=== PATIENT | male | born 1945 | race Caucasian/White ===

== ENCOUNTER 2016-10-30 11:46 | Inpatient (IN) | payer MEDICARE, MEDICAID ==
[~2016-10-30] VITALS: Ht 170.2 cm; Wt 72.6 kg
[2016-10-30] MEDS ORDERED: IV NS 0.9% 1,000 ML BAG IV ONE ×2 (12:00→12:30)
[2016-10-30] MEDS ORDERED: IV SET PRIMARY 1 EA INFUS.SET MC ONE (12:05)
[2016-10-30] MEDS ORDERED: IV NS 0.9% 1,000 ML ONE (12:05)
[2016-10-30 12:11] LABS: BASOPHILS # (AUTO) 0.1 /CMM (0.0-0.2); BASOPHILS % (AUTO) 1.4 % (0.0-2.0); DIFF TOTAL % 100 %; HEMATOCRIT 45 % (39-51); LYMPHOCYTES # (AUTO) 0.3 /CMM (0.8-4.8); LYMPHOCYTES % (AUTO) 3.8 % (20.0-44.0); MEAN CORPUSCULAR HEMOGLOBIN 28 PG (26.0-33.0); MEAN CORPUSCULAR HGB CONC 34 g/dl (31.0-36.0); MEAN CORPUSCULAR VOLUME 82 fL (80-96); MONOCYTES # (AUTO) 0.5 /CMM (0.1-1.30); MONOCYTES % (AUTO) 6.2 % (2.0-12.0); NEUTROPHILS # (AUTO) 6.9 /CMM (1.8-8.9); NEUTROPHILS % (AUTO) 88.6 % (43.0-81.0); PLATELET COUNT (AUTO) 189 /CMM (150-450); RED BLOOD CELL COUNT(AUTO) 5.42 MIL/uL (4.5-6.0); WHITE BLOOD COUNT (AUTO) 7.8 K/uL (4.3-11.0)
[2016-10-30] MEDS ORDERED: IV NS 0.9% 500 ML IV ONE (12:15)
[2016-10-30] MEDS ORDERED: LEVOFLOXACIN 750 MG /D5W 150ML 150 ML IV ONE ×2 (12:15→12:30)
[2016-10-30] MEDS ORDERED: IV SET PRIMARY PUMP SET 1 EA INFUS.SET MC ONE ×3 (12:16→13:44)
[2016-10-30] MEDS ORDERED: ACETAMINOPHEN 650 MG/SUPP.RECT RC ONE ×2 (12:18→12:30)
[2016-10-30 12:25] LABS: INR 1.04 (0.87-1.13); PROTHROMBIN TIME 10.9 SECS (9.5-12.7)
[2016-10-30 12:27] LABS: ALBUMIN 3.5 g/dL (3.4-5.0); BILIRUBIN,DIRECT 0.1 mg/dL (0.0-0.2); BILIRUBIN,TOTAL 0.4 mg/dL (0.2-1.0); CALCIUM, SERUM 9.1 mg/dL (8.5-10.1); INDIRECT BILIRUBIN 0.3 mg/dL (0.0-1.1); POTASSIUM 4.2 mmol/L (3.5-5.1)
[2016-10-30 12:30] LABS: TROPONIN I 0.227 ng/mL (0.00-0.056)
[2016-10-30] MEDS ORDERED: VANCOMYCIN 1 GM in IV D5W 250 ML IV ONE (12:30)
[2016-10-30] MEDS ORDERED: PIPERACILLIN /TAZOBACTAM 3.375 G in IV D5W 50 ML IV ONE (12:30)
[2016-10-30 12:41] LABS: LACTIC ACID 1.3 mmol/L (0.4-2.0)
[2016-10-30] MEDS ORDERED: SECONDARY IV SET 1 EA INFUS.SET MC ONE ×2 (12:48→13:44)
[2016-10-30] MEDS ORDERED: IV NS 0.9% 250 ML IV ONE (13:44)
[2016-10-30 13:45] VITALS: BP 113/64
[2016-10-30] MEDS ORDERED: Z GUARD REMEDY 2 OZ OINT TP PRN (14:00)
[2016-10-30] MEDS ORDERED: ONDANSETRON HCL/PF 4 MG/2 ML VIAL IVP PRN (14:00)
[2016-10-30] MEDS ORDERED: HYDROCODONE/APAP 5/325MG 1 EACH TABLET PO PRN (14:00)
[2016-10-30] MEDS ORDERED: PIPERACILLIN /TAZOBACTAM 4.5 G in IV D5W 50 ML IV SCH (14:00)
[2016-10-30] MEDS ORDERED: ZOLPIDEM TARTRATE 5 MG TABLET PO PRN (14:00)
[2016-10-30] MEDS ORDERED: ACETAMINOPHEN 325 MG TABLET PO PRN (14:00)
[2016-10-30 14:33] LABS: KETONES,URINE 2+ (NEGATIVE); LEUKOCYTE ESTERASE ,URINE NEGATIVE (NEGATIVE)
[2016-10-30 14:38] LABS: ADD UA MICROSCOPIC YES
[2016-10-30 14:40] LABS: ADD URINE CULTURE NO
[2016-10-30 14:41] LABS: MUCUS,URINE Moderate /LPF (None Seen)
[2016-10-30] MEDS: PANTOPRAZOLE 40 MG VIAL IV SCH (15:55)
[2016-10-30] MEDS: IV NS 0.9% 1,000 ML IV PRN (15:57)
[2016-10-30] MEDS ORDERED: VANCOMYCIN 1 GM in IV D5W 250ml IV ONE (16:00)
[2016-10-30] MEDS: IPRATROPIUM NEB FS 0.5 MG/2.5 ML AMPUL.NEB NEB SCH ×3 (16:06→23:35)
[2016-10-30] MEDS: ALBUTEROL FS 2.5 MG/0.5 ML VIAL.NEB NEB SCH ×3 (16:06→23:35)
[2016-10-30] MEDS: ENOXAPARIN SODIUM 40 MG/0.4 ML DISP.SYRIN SQ SCH (17:39)
[2016-10-30 17:41] LABS: ABG HCO3 22.7 mmol/L; ABG PCO2 28.4 mmHg (35.0-45.0); ABG PH 7.521 (7.350-7.450); ABG PO2 69.6 mmHg (75.0-100.0); ABG TOTAL HEMOGLOBIN 13.5 G/dL (13.5-18.0); ALLEN TEST Pass; AaDO2 46.1 mmHg; O2Hb 93.2 % (94.0-97.0)
[2016-10-30] MEDS: PIPERACILLIN /TAZOBACTAM 3.375 G in IV D5W 50 ML IV SCH (17:57)
[2016-10-30] MEDS ORDERED: FEE PK DOSING 1 MIN EA MC ONE (19:04)
[2016-10-30 20:00] VITALS: BP 117/76
[2016-10-31] VITALS: BP 116/73
[2016-10-31] MEDS: PIPERACILLIN /TAZOBACTAM 3.375 G in IV D5W 50 ML IV SCH ×4 (00:29→18:03)
[2016-10-31] MEDS ORDERED: ACETAMINOPHEN 650 MG/SUPP.RECT RC ONE (00:37)
[2016-10-31] MEDS: ACETAMINOPHEN 650 MG/SUPP.RECT RC PRN ×2 (00:42→20:46)
[2016-10-31] MEDS: ALBUTEROL FS 2.5 MG/0.5 ML VIAL.NEB NEB SCH ×6 (03:13→23:25)
[2016-10-31] MEDS: IPRATROPIUM NEB FS 0.5 MG/2.5 ML AMPUL.NEB NEB SCH ×6 (03:13→23:25)
[2016-10-31 04:00] VITALS: BP 119/80
[2016-10-31] MEDS: VANCOMYCIN 1 GM in IV D5W 250 ML IV SCH ×2 (04:50→16:54)
[2016-10-31] MEDS ORDERED: SECONDARY IV SET 1 EA INFUS.SET MC ONE ×2 (04:52→13:53)
[2016-10-31 08:00] VITALS: BP 112/67
[2016-10-31 08:26] LABS: ALBUMIN 3.1 g/dL (3.4-5.0); BILIRUBIN,TOTAL 0.4 mg/dL (0.2-1.0); CREATININE 1.1 mg/dL (0.6-1.3); PHOSPHORUS 3.2 mg/dL (2.5-4.9); POTASSIUM 3.7 mmol/L (3.5-5.1); TOTAL PROTEIN, SERUM 6.9 g/dL (6.4-8.2)
[2016-10-31] MEDS: PANTOPRAZOLE 40 MG VIAL IV SCH (08:34)
[2016-10-31 08:37] LABS: DIFF TOTAL % 100 %; HEMATOCRIT 42 % (39-51); HEMOGLOBIN 13.8 g/dL (13.5-17.5); LYMPHOCYTES # (AUTO) 0.4 /CMM (0.8-4.8); LYMPHOCYTES % (AUTO) 7.1 % (20.0-44.0); MEAN CORPUSCULAR HEMOGLOBIN 28 PG (26.0-33.0); MEAN CORPUSCULAR HGB CONC 33 g/dl (31.0-36.0); MEAN CORPUSCULAR VOLUME 84 fL (80-96); MONOCYTES # (AUTO) 0.6 /CMM (0.1-1.30); MONOCYTES % (AUTO) 9.5 % (2.0-12.0); NEUTROPHILS % (AUTO) 83.4 % (43.0-81.0); PLATELET COUNT (AUTO) 139 /CMM (150-450); WHITE BLOOD COUNT (AUTO) 6.1 K/uL (4.3-11.0)
[2016-10-31] MEDS ORDERED: BISA10SU8 RC (10:02)
[2016-10-31] MEDS ORDERED: NA P133E RC (10:02)
[2016-10-31] MEDS: IV NS 0.9% 1,000 ML IV PRN (10:02)
[2016-10-31] MEDS ORDERED: MAGN400O6 PO (10:02)
[2016-10-31] MEDS ORDERED: ACET-868 PO (10:02)
[2016-10-31] MEDS ORDERED: DONE5TAB34 PO (10:02)
[2016-10-31 12:00] VITALS: BP 108/69
[2016-10-31] MEDS: Magnesium 1GM/D5W 100ML PREMIX 100 ML IV SCH ×2 (14:16→15:47)
[2016-10-31 16:18] VITALS: BP 114/62
[2016-10-31] MEDS: LACTOBACILLUS RHAMNOSUS GG 1 EACH CAP.SPRINK PO SCH (16:23)
[2016-10-31 20:00] VITALS: BP 108/63
[2016-10-31] MEDS: ENOXAPARIN SODIUM 40 MG/0.4 ML DISP.SYRIN SQ SCH (20:59)
[2016-11-01] VITALS: BP 111/65
[2016-11-01] MEDS: PIPERACILLIN /TAZOBACTAM 3.375 G in IV D5W 50 ML IV SCH ×5 (00:01→23:43)
[2016-11-01] MEDS: IPRATROPIUM NEB FS 0.5 MG/2.5 ML AMPUL.NEB NEB SCH ×6 (03:35→23:19)
[2016-11-01] MEDS: ALBUTEROL FS 2.5 MG/0.5 ML VIAL.NEB NEB SCH ×6 (03:35→23:19)
[2016-11-01 05:34] LABS: POTASSIUM 3.6 mmol/L (3.5-5.1)
[2016-11-01] MEDS: VANCOMYCIN 1 GM in IV D5W 250 ML IV SCH (05:50)
[2016-11-01] MEDS ORDERED: IV NS 0.9% 1,000 ML ONE (05:57)
[2016-11-01] MEDS: IV NS 0.9% 1,000 ML IV PRN (06:02)
[2016-11-01] MEDS: PANTOPRAZOLE 40 MG VIAL IV SCH (08:24)
[2016-11-01] MEDS: LACTOBACILLUS RHAMNOSUS GG 1 EACH CAP.SPRINK PO SCH ×2 (08:25→17:29)
[2016-11-01 09:09] VITALS: BP 115/70
[2016-11-01 12:08] VITALS: BP 130/68
[2016-11-01 16:36] VITALS: BP 140/60
[2016-11-01] MEDS: VANCOMYCIN 1.25 GM in IV D5W 500 ML IV SCH (18:00)
[2016-11-01 20:00] VITALS: BP 102/51
[2016-11-01] MEDS: ENOXAPARIN SODIUM 40 MG/0.4 ML DISP.SYRIN SQ SCH (21:21)
[2016-11-02] MEDS: IV NS 0.9% 1,000 ML IV PRN (01:10)
[2016-11-02] MEDS: ALBUTEROL FS 2.5 MG/0.5 ML VIAL.NEB NEB SCH ×3 (03:34→10:58)
[2016-11-02] MEDS: IPRATROPIUM NEB FS 0.5 MG/2.5 ML AMPUL.NEB NEB SCH ×3 (03:34→10:58)
[2016-11-02] MEDS: VANCOMYCIN 1.25 GM in IV D5W 500 ML IV SCH (04:24)
[2016-11-02] MEDS: PIPERACILLIN /TAZOBACTAM 3.375 G in IV D5W 50 ML IV SCH ×2 (06:28→11:16)
[2016-11-02 08:00] VITALS: BP 119/73
[2016-11-02] MEDS: PANTOPRAZOLE 40 MG VIAL IV SCH (08:52)
[2016-11-02] MEDS: LACTOBACILLUS RHAMNOSUS GG 1 EACH CAP.SPRINK PO SCH (08:52)
[2016-11-02 09:49] LABS: CALCIUM, SERUM 8.2 mg/dL (8.5-10.1); CREATININE 1.1 mg/dL (0.6-1.3); POTASSIUM 3.2 mmol/L (3.5-5.1)
[2016-11-02] MEDS ORDERED: POTASSIUM CHLORIDE 20 MEQ TAB.PRT.SR PO ONE (12:00)
== END 2016-11-02 14:00 | DRG 871 ==
LOC: ER 11:48 → MED 13:18 → TELE 16:22 → MED 11-01 13:16
PROVIDERS: ADMIT Internal Medicine; ATTEND Internal Medicine
DX: A41.9 Sepsis, unspecified organism (principal); G93.41 Metabolic encephalopathy; J96.01 Acute respiratory failure with hypoxia; I21.4 Non-ST elevation (NSTEMI) myocardial infarction; J18.9 Pneumonia, unspecified organism; D68.59 Other primary thrombophilia; F03.90 Unspecified dementia, unspecified severity, without behavioral disturbance, psychotic disturbance, mood disturbance, and anxiety; Z74.01 Bed confinement status; R65.20 Severe sepsis without septic shock
CPT/HCPCS: 31720; 36415; 36600; 70450-TC; 71010-TC; 80048-TC; 80053-TC; 80061-TC; 80076-TC; 80202-TC; 81000-TC; 83605-TC; 83735-TC; 84100-TC; 84484-TC; 85025-TC; 85730-TC; 86850-TC; 86880-TC; 87040-TC; 87081-TC; 87086-TC; 92611-TC; 94799-TC; 97001-TC; A4606; C9113; J1650; J1956; J2543; J3370; J3475; J7030; J7040; J7050; J7060; Z7610

== ENCOUNTER 2016-11-07 11:52 | Inpatient (IN) | payer MEDICARE, MEDICAID ==
[~2016-11-07] VITALS: Ht 172.7 cm; Wt 69.9 kg
[~2016-11-07 11:52] MED LIST: ACET-868 PO; BISA10SU8 RC; DONE5TAB34 PO; MAGN400O6 PO; NA P133E RC
[2016-11-07] MEDS ORDERED: IV NS 0.9% 1,000 ML BAG IV ONE (12:00)
[2016-11-07] MEDS ORDERED: CEFEPIME 1 GM in IV D5W 50 ML IV ONE (12:00)
[2016-11-07] MEDS ORDERED: VANCOMYCIN 1 GM in IV D5W 250 ML IV ONE (12:00)
[2016-11-07 12:16] LABS: ABG BASE EXCESS 4.7 mmol/L; ABG PCO2 33.3 mmHg (35.0-45.0); ABG PH 7.527 (7.350-7.450); ABG PO2 70.4 mmHg (75.0-100.0); ALLEN TEST Pass; AaDO2 39.5 mmHg; O2Hb 93.6 % (94.0-97.0)
[2016-11-07] MEDS ORDERED: IV NS 0.9% 500 ML IV ONE (12:22)
[2016-11-07] MEDS ORDERED: IV NS 0.9% 2,000 ML ONE (12:22)
[2016-11-07] MEDS ORDERED: IV SET PRIMARY 1 EA INFUS.SET MC ONE (12:22)
[2016-11-07] MEDS ORDERED: IV SET PRIMARY PUMP SET 1 EA INFUS.SET MC ONE ×2 (12:23→16:20)
[2016-11-07 12:25] LABS: BASOPHILS # (AUTO) 0.3 /CMM (0.0-0.2); BASOPHILS % (AUTO) 3.6 % (0.0-2.0); DIFF TOTAL % 100 %; EOSINOPHILS # (AUTO) 0.1 /CMM (0.0-0.7); EOSINOPHILS % (AUTO) 0.8 % (0.0-6.0); HEMATOCRIT 43 % (39-51); HEMOGLOBIN 13.9 g/dL (13.5-17.5); LYMPHOCYTES # (AUTO) 1.8 /CMM (0.8-4.8); LYMPHOCYTES % (AUTO) 23.2 % (20.0-44.0); MEAN CORPUSCULAR HEMOGLOBIN 27 PG (26.0-33.0); MEAN CORPUSCULAR HGB CONC 33 g/dl (31.0-36.0); MEAN CORPUSCULAR VOLUME 82 fL (80-96); MONOCYTES # (AUTO) 0.7 /CMM (0.1-1.30); MONOCYTES % (AUTO) 9.6 % (2.0-12.0); NEUTROPHILS # (AUTO) 4.9 /CMM (1.8-8.9); NEUTROPHILS % (AUTO) 62.8 % (43.0-81.0); PLATELET COUNT (AUTO) 296 /CMM (150-450); RED BLOOD CELL COUNT(AUTO) 5.17 MIL/uL (4.5-6.0); WHITE BLOOD COUNT (AUTO) 7.8 K/uL (4.3-11.0)
[2016-11-07 12:36] LABS: CALCIUM, SERUM 9.9 mg/dL (8.5-10.1); POTASSIUM 4.5 mmol/L (3.5-5.1)
[2016-11-07 12:40] LABS: INR 1.04 (0.87-1.13); PROTHROMBIN TIME 10.9 SECS (9.5-12.7)
[2016-11-07 12:43] LABS: KETONES,URINE Negative (NEGATIVE); LEUKOCYTE ESTERASE ,URINE Negative (NEGATIVE)
[2016-11-07 12:45] LABS: BILIRUBIN,DIRECT 0.1 mg/dL (0.0-0.2); BILIRUBIN,TOTAL 0.5 mg/dL (0.2-1.0); INDIRECT BILIRUBIN 0.4 mg/dL (0.0-1.1); TOTAL PROTEIN, SERUM 8.3 g/dL (6.4-8.2)
[2016-11-07 12:46] LABS: ADD UA MICROSCOPIC YES
[2016-11-07 12:48] LABS: ADD URINE CULTURE NO; RBC,URINE 0-2 /HPF (0-2); WBC,URINE 0-2 /HPF (0-3)
[2016-11-07 12:51] LABS: TROPONIN I 0.035 ng/mL (0.00-0.056)
[2016-11-07] MEDS ORDERED: DONE10TA44 PO (12:53)
[2016-11-07 13:01] LABS: LACTIC ACID 1.1 mmol/L (0.4-2.0)
[2016-11-07] MEDS ORDERED: IPRA3AMP HHN ×2 (13:01)
[2016-11-07] MEDS ORDERED: CT SWABBABLE VALVE TRANS SET 1 EA INFUS.SET MC ONE (13:24)
[2016-11-07] MEDS ORDERED: IV NS 0.9% 250 ML IV ONE (13:24)
[2016-11-07] MEDS ORDERED: IOHEXOL-350 100 ML VIAL IV ONE (13:24)
[2016-11-07 16:00] VITALS: BP 95/63
[2016-11-07] MEDS ORDERED: ONDANSETRON HCL/PF 4 MG/2 ML VIAL IVP PRN (16:30)
[2016-11-07] MEDS ORDERED: ACETAMINOPHEN 650 MG/SUPP.RECT RC PRN (16:30)
[2016-11-07] MEDS ORDERED: FEE PK DOSING 1 MIN EA MC ONE (16:41)
[2016-11-07] MEDS ORDERED: ALBUTEROL FS 2.5 MG/0.5 ML VIAL.NEB NEB PRN (17:00)
[2016-11-07] MEDS ORDERED: IPRATROPIUM NEB FS 0.5 MG/2.5 ML AMPUL.NEB NEB PRN (17:00)
[2016-11-07] MEDS: IV D5/ 0.9% NACL 1,000 ML IV PRN (17:40)
[2016-11-07] MEDS ORDERED: SECONDARY IV SET 1 EA INFUS.SET MC ONE ×2 (17:48→23:52)
[2016-11-07] MEDS: PIPERACILLIN /TAZOBACTAM 4.5 G in IV D5W 50 ML IV SCH ×2 (17:53→23:39)
[2016-11-07] MEDS ORDERED: PIPERACILLIN /TAZOBACTAM 3.375 G in IV D5W 50 ML IV SCH (18:00)
[2016-11-07] MEDS: IPRATROPIUM NEB FS 0.5 MG/2.5 ML AMPUL.NEB NEB SCH (19:30)
[2016-11-07] MEDS: ALBUTEROL FS 2.5 MG/0.5 ML VIAL.NEB NEB SCH (19:30)
[2016-11-07 20:00] VITALS: BP 154/76
[2016-11-07] MEDS: ENOXAPARIN SODIUM 40 MG/0.4 ML DISP.SYRIN SQ SCH (21:28)
[2016-11-08] VITALS: BP 159/70
[2016-11-08] MEDS: VANCOMYCIN 1.25 GM in IV D5W 500 ML IV SCH ×2 (00:47→12:28)
[2016-11-08 04:00] VITALS: BP 160/78
[2016-11-08] MEDS: PIPERACILLIN /TAZOBACTAM 4.5 G in IV D5W 50 ML IV SCH ×4 (05:20→23:32)
[2016-11-08 06:19] LABS: BASOPHILS % (AUTO) 0.4 % (0.0-2.0); DIFF TOTAL % 100 %; EOSINOPHILS # (AUTO) 0.1 /CMM (0.0-0.7); EOSINOPHILS % (AUTO) 1.6 % (0.0-6.0); HEMATOCRIT 36 % (39-51); LYMPHOCYTES % (AUTO) 20.1 % (20.0-44.0); MEAN CORPUSCULAR HEMOGLOBIN 28 PG (26.0-33.0); MEAN CORPUSCULAR HGB CONC 34 g/dl (31.0-36.0); MEAN CORPUSCULAR VOLUME 82 fL (80-96); MONOCYTES # (AUTO) 0.5 /CMM (0.1-1.30); MONOCYTES % (AUTO) 10.6 % (2.0-12.0); NEUTROPHILS # (AUTO) 3.5 /CMM (1.8-8.9); NEUTROPHILS % (AUTO) 67.3 % (43.0-81.0); PLATELET COUNT (AUTO) 209 /CMM (150-450); RED BLOOD CELL COUNT(AUTO) 4.32 MIL/uL (4.5-6.0); WHITE BLOOD COUNT (AUTO) 5.2 K/uL (4.3-11.0)
[2016-11-08 06:33] LABS: CALCIUM, SERUM 8.1 mg/dL (8.5-10.1); CREATININE 0.9 mg/dL (0.6-1.3); PHOSPHORUS 2.7 mg/dL (2.5-4.9); POTASSIUM 3.5 mmol/L (3.5-5.1)
[2016-11-08] MEDS: IPRATROPIUM NEB FS 0.5 MG/2.5 ML AMPUL.NEB NEB SCH ×3 (07:32→19:54)
[2016-11-08] MEDS: ALBUTEROL FS 2.5 MG/0.5 ML VIAL.NEB NEB SCH ×3 (07:32→19:54)
[2016-11-08 08:00] VITALS: BP 139/67
[2016-11-08] MEDS: IV D5/ 0.9% NACL 1,000 ML IV PRN (09:09)
[2016-11-08] MEDS: PANTOPRAZOLE 40 MG VIAL IV SCH (09:09)
[2016-11-08 12:00] VITALS: BP 116/80
[2016-11-08 16:00] VITALS: BP 143/79
[2016-11-08 20:00] VITALS: BP 123/66
[2016-11-08] MEDS: ENOXAPARIN SODIUM 40 MG/0.4 ML DISP.SYRIN SQ SCH (21:33)
[2016-11-09] VITALS (9 sets, daily range): BP systolic 92–157; BP diastolic 62–88
[2016-11-09] MEDS: VANCOMYCIN 1.25 GM in IV D5W 500 ML IV SCH (01:25)
[2016-11-09] MEDS: IV D5/ 0.9% NACL 1,000 ML IV PRN (05:28)
[2016-11-09] MEDS: PIPERACILLIN /TAZOBACTAM 4.5 G in IV D5W 50 ML IV SCH ×3 (05:29→17:41)
[2016-11-09 07:17] LABS: CALCIUM, SERUM 8.2 mg/dL (8.5-10.1)
[2016-11-09] MEDS: ALBUTEROL FS 2.5 MG/0.5 ML VIAL.NEB NEB SCH ×3 (08:05→19:35)
[2016-11-09] MEDS: PANTOPRAZOLE 40 MG VIAL IV SCH (08:05)
[2016-11-09] MEDS: IPRATROPIUM NEB FS 0.5 MG/2.5 ML AMPUL.NEB NEB SCH ×3 (08:05→19:35)
[2016-11-09] MEDS ORDERED: SECONDARY IV SET 1 EA INFUS.SET MC ONE (11:44)
[2016-11-09] MEDS: POTASSIUM CL. PREMIX PERIPHER. 50 ML IV SCH ×6 (11:49→20:49)
[2016-11-09] MEDS ORDERED: BACITRACIN ZINC OINT (15 GM) 15 GM TUBE TP PRN (15:30)
[2016-11-09] MEDS ORDERED: HYDROGEN PEROXIDE 480 ML BOTTLE TP PRN (15:30)
[2016-11-09] MEDS: ENOXAPARIN SODIUM 40 MG/0.4 ML DISP.SYRIN SQ SCH (20:50)
[2016-11-09] MEDS ORDERED: FIBERSOURCE HN 1,000 ML BOTTLE GT PRN (21:00)
[2016-11-10] VITALS: BP 139/92
[2016-11-10] MEDS: PIPERACILLIN /TAZOBACTAM 4.5 G in IV D5W 50 ML IV SCH ×4 (00:33→17:07)
[2016-11-10] MEDS: VANCOMYCIN 0.75 GM in IV D5W 250 ML IV SCH ×2 (01:10→12:40)
[2016-11-10 04:00] VITALS: BP 115/65
[2016-11-10] MEDS: IV D5/ 0.9% NACL 1,000 ML IV PRN (05:51)
[2016-11-10 06:49] LABS: BASOPHILS % (AUTO) 0.3 % (0.0-2.0); DIFF TOTAL % 100 %; EOSINOPHILS # (AUTO) 0.1 /CMM (0.0-0.7); EOSINOPHILS % (AUTO) 1.5 % (0.0-6.0); HEMATOCRIT 36 % (39-51); LYMPHOCYTES % (AUTO) 20.1 % (20.0-44.0); MEAN CORPUSCULAR HEMOGLOBIN 27 PG (26.0-33.0); MEAN CORPUSCULAR HGB CONC 33 g/dl (31.0-36.0); MEAN CORPUSCULAR VOLUME 82 fL (80-96); MONOCYTES # (AUTO) 0.6 /CMM (0.1-1.30); NEUTROPHILS # (AUTO) 3.5 /CMM (1.8-8.9); NEUTROPHILS % (AUTO) 67.1 % (43.0-81.0); PLATELET COUNT (AUTO) 245 /CMM (150-450); RED BLOOD CELL COUNT(AUTO) 4.38 MIL/uL (4.5-6.0); WHITE BLOOD COUNT (AUTO) 5.2 K/uL (4.3-11.0)
[2016-11-10 07:00] LABS: CALCIUM, SERUM 8.1 mg/dL (8.5-10.1); POTASSIUM 3.4 mmol/L (3.5-5.1)
[2016-11-10] MEDS: ALBUTEROL FS 2.5 MG/0.5 ML VIAL.NEB NEB SCH ×2 (07:23→13:21)
[2016-11-10] MEDS: IPRATROPIUM NEB FS 0.5 MG/2.5 ML AMPUL.NEB NEB SCH ×2 (07:23→13:21)
[2016-11-10 08:00] VITALS: BP 127/67
[2016-11-10] MEDS: PANTOPRAZOLE 40 MG VIAL IV SCH (08:38)
[2016-11-10] MEDS ORDERED: POTASSIUM CHLORIDE 20 MEQ POWDER PACKET GT SCH (10:30)
[2016-11-10 12:00] VITALS: BP 122/84
[2016-11-10] MEDS ORDERED: Z GUARD REMEDY 4 OZ OINT TP PRN ×2 (12:30)
[2016-11-10 16:00] VITALS: BP 121/75
== END 2016-11-10 19:56 | DRG 871 ==
LOC: ER 11:55 → TELE1 15:10
PROVIDERS: ADMIT Legal Medicine; ATTEND Legal Medicine
PROC: 0DH63UZ Insertion of Feeding Device into Stomach, Percutaneous Approach (ICD-10-PCS; principal; 2016-11-09 13:18)
DX: A41.9 Sepsis, unspecified organism (principal); J69.0 Pneumonitis due to inhalation of food and vomit; J96.91 Respiratory failure, unspecified with hypoxia; G93.40 Encephalopathy, unspecified; J98.11 Atelectasis; I10 Essential (primary) hypertension; E78.5 Hyperlipidemia, unspecified; G30.9 Alzheimer's disease, unspecified; F02.80 Dementia in other diseases classified elsewhere, unspecified severity, without behavioral disturbance, psychotic disturbance, mood disturbance, and anxiety; F29 Unspecified psychosis not due to a substance or known physiological condition; F41.9 Anxiety disorder, unspecified; F32.9 Major depressive disorder, single episode, unspecified; M19.90 Unspecified osteoarthritis, unspecified site; R13.10 Dysphagia, unspecified; Z87.01 Personal history of pneumonia (recurrent)
CPT/HCPCS: 31720; 36415; 36600; 71010-TC; 80048-TC; 80076-TC; 80202-TC; 81000-TC; 83605-TC; 83735-TC; 84100-TC; 84484-TC; 85025-TC; 85730-TC; 87040-TC; 87081-TC; 87400; 92521; 92526; 92611-TC; 94799-TC; 97001-TC; A4606; A4623; A6403; C9113; J0692; J1650; J2543; J3370; J3480; J7030; J7040; J7042; J7050; J7060; Q9967; Z7610

== ENCOUNTER 2017-07-12 19:09 | Inpatient (IN) | payer MEDICARE, MEDICAID ==
[~2017-07-12] VITALS: Ht 165.1 cm; Wt 60.8 kg
[~2017-07-12 19:09] MED LIST changes: +DONE10TA44 PO; -DONE5TAB34 PO; +IPRA3AMP HHN
--- NOTE | 2017-07-12 19:09 | NUR ---
TO BED 5 A 71 YO MALE PATIENT BB RA86 FROM [facility]. PER EMS REPORT, SNF STAFF CALLED 911 FOR PT SpO2 78%, EMS REPORTS RT @SNF SUCTIONED COPIUS AMOUNTS OF SECRETIONS. UPON ARRIVAL TO ER, PATIENT IS AWAKE, NONVERBAL, RESPONSE TO TOUCH/LIGHT PAIN, DOES NOT FOLLOW COMMANDS. KEPT HOB ELEVATED. NOTED WITH O2 SATURATION OF 86% ON ROOM AIR, PLACED ON NONREBREATHER MASK AT 15LPM, SUCTIONED PRN FOR AIRWAY CLEARANCE, SATTING THIS TIME AT 96%. PLACED ON CARDIAC AND VS MONITORING. GOWNED. COMFORT AND SAFETY MEASURES IN PLACE. NOTED WITH TEMP PER RECTAL AT 101, NOTIFIED DR GREENFIELD AND SEPSIS PROTOCOL INITIATED.
--- NOTE | 2017-07-12 19:10 | NUR ---
STARTED A SALINE LOCK ON THE LEFT FOREARM G18, BLOOD DRAWN AND SENT TO LAB.
[2017-07-12 19:31] LABS: MONOCYTES # (AUTO) 0.7 /CMM (0.1-1.30)
--- NOTE | 2017-07-12 19:34 | NUR ---
DR GREENFIELD AT BEDSIDE TO EVAL.
[2017-07-12 19:40] LABS: BASOPHILS % (AUTO) 0.2 % (0.0-2.0); EOSINOPHILS # (AUTO) 0.1 /CMM (0.0-0.7); EOSINOPHILS % (AUTO) 0.4 % (0.0-6.0); HEMATOCRIT 39 % (39-51); HEMOGLOBIN 13.2 g/dL (13.5-17.5); LYMPHOCYTES # (AUTO) 0.9 /CMM (0.8-4.8); MEAN CORPUSCULAR HEMOGLOBIN 28 PG (26.0-33.0); MEAN CORPUSCULAR HGB CONC 34 g/dl (31.0-36.0); MEAN CORPUSCULAR VOLUME 83 fL (80-96); MONOCYTES % (AUTO) 5.4 % (2.0-12.0); NEUTROPHILS # (AUTO) 11.2 /CMM (1.8-8.9); PLATELET COUNT (AUTO) 270 /CMM (150-450); RDW COEFFICIENT OF VARIATION 12.4 (11.5-15.0); RED BLOOD CELL COUNT(AUTO) 4.71 MIL/uL (4.5-6.0); WHITE BLOOD COUNT (AUTO) 12.9 K/uL (4.3-11.0)
[2017-07-12 19:52] LABS: INR 1.09 (0.87-1.13); PROTHROMBIN TIME 11.4 SECS (9.5-12.7)
[2017-07-12 19:59] LABS: ALANINE AMINOTRANSFERASE 21 U/L (12-78); ALBUMIN 2.3 g/dL (3.4-5.0); ALKALINE PHOSPHATASE 85 U/L (46-116); ASPARTATE AMINOTRANSFERASE 36 U/L (15-37); BILIRUBIN,DIRECT 0.1 mg/dL (0.0-0.2); BILIRUBIN,TOTAL 0.4 mg/dL (0.2-1.0); CALCIUM, SERUM 8.6 mg/dL (8.5-10.1); CARBON DIOXIDE 29 mmol/L (21-32); CHLORIDE 102 mmol/L (98-107); CREATININE 0.7 mg/dL (0.6-1.3); GLUCOSE 113 mg/dL (74-106); POTASSIUM 3.6 mmol/L (3.5-5.1); SODIUM SERUM 137 mmol/L (136-145); TOTAL PROTEIN, SERUM 6.9 g/dL (6.4-8.2); UREA NITROGEN, BLOOD 18 mg/dL (7-18)
[2017-07-12 20:05] LABS: TROPONIN I 0.024 ng/mL (0.00-0.056)
[2017-07-12 20:07] LABS: APPEARANCE,URINE Clear (CLEAR); BILIRUBIN,URINE Negative (NEGATIVE); BLOOD, URINE Negative Ery/uL (NEGATIVE); COLOR,URINE Dark (YELLOW); KETONES,URINE Negative (NEGATIVE); LEUKOCYTE ESTERASE ,URINE Negative (NEGATIVE); NITRITE, URINE Negative (NEGATIVE); PROTEIN,URINE 30 mg/dl (NEGATIVE); UGLUCOSE Negative (NEGATIVE)
[2017-07-12] MEDS ORDERED: ERYT250C68 GT (20:10)
[2017-07-12] MEDS ORDERED: METO-295 GT (20:10)
[2017-07-12] MEDS ORDERED: RANI150T12 GT (20:10)
[2017-07-12] MEDS ORDERED: FERR-58 GT (20:10)
[2017-07-12] MEDS ORDERED: ACET-868 GT (20:10)
[2017-07-12] MEDS ORDERED: DOCU-25 GT (20:10)
--- NOTE | 2017-07-12 20:21 | NUR ---
EMERGENCY SPILL RESPONSE TECHNICIAN CALLED FOR MIN BED
[2017-07-12 20:25] LABS: BACTERIA,URINE Rare /HPF (None Seen); RBC,URINE NONE SEEN /HPF (0-2); SQUAMOUS EPITHELIAL CELL,UR Few /HPF (None Seen); WBC,URINE NONE SEEN /HPF (0-3)
--- NOTE | 2017-07-12 20:30 | NUR ---
started another iv saline lock on the rfa g18.
--- NOTE | 2017-07-12 20:32 | NUR ---
MIN 115-2
--- NOTE | 2017-07-12 20:40 | NUR ---
DR. VILLANUEVA CALLED AND SAID "PANEL IS COVERING ME TONIGHT"
--- NOTE | 2017-07-12 21:07 | NUR ---
report given to Marti FOURNIER for renata admission and uday.
--- NOTE | 2017-07-12 21:45 | NUR ---
RN OPENING NOTES" RECEIVED PATIENT FROM ER VIA ANTONINA, ON NON REBREATHER MASK AT 15LPM. PATIENT IS LETHARGIC, AROUSABLE THROUGH DEEP PAIN AT THIS TIME. VS STABLE DOCUMENTED. SKIN ASSESSMENT DONE. PHOTODOCUMENTATION FILED IN CHART. SKIN CARE RENDERED. HOOKED ON FLIGHT DATA TECHNICIAN. TELE REVEALS SINUS RHYTHM AT 80'S. IV ACCESS ON RFA G18 R WRIST G20 AND LFA G18, ALL PATENT AND INTACT. LEVAQUIN RUNNING AND IV BOLUS RUNNING FROM ER. GT INTACT PATENCY VERIFIED THROUGH AUSCULTATION. FC INTACT DRAINING TO A CLOSED SYSTEM. TO MONITOR OUTPUT. SAFETY MEASURES ENSURED. ASPIRATION PRECAUTIONS ENSURED. TO CARRY OUT ADMITTING ORDERS. CONTINUOUSLY MONITORED CLOSELY.
--- NOTE | 2017-07-12 21:46 | NUR ---
TRANSFERRED TO MIN FLOOR VIA ALS PROTOCOL, NO INCIDENT NOTED.
[2017-07-12 22:00] VITALS: BP 127/62
--- NOTE | 2017-07-12 23:00 | NUR ---
RN NOTES: STARTED PATIENT ON ANTIBIOTICS ORDERED. PATIENT AFEBRILE. TITRATED O2 DOWN TO O2 VIA NC AT 2LPM, TOLERATED WELL, SATURATING AT 96-97%. NOT IN APPARENT DISTRESS. CONFIRMED WITH DR BOWSER REGARDING GT FEEDING IF OK TO CONTINUE FEEDING FROM [facility]. DR BOWSER AGREES. ORDERS IN. MONITORED FOR TOLERANCE TO FEEDING. DIETARY CONSULT ORDERED WELL. ALSO ORDERED FOR CONTINUOUS IVF AT 75 CC/HR AFTER FLUID RESCUCITATION DONE. CONFIRMED WITH [facility] RE VACCINE HISTORY; FILED. SAFETY MEASURES ENSURED. CONTINUOUSLY MONITORED PATIENT.
[2017-07-13] VITALS (7 sets, daily range): BP systolic 120–168; BP diastolic 51–74
--- NOTE | 2017-07-13 07:00 | NUR ---
RN CLOSING NOTES: PATIENT REMAINED IN BED NOT IN APPARENT DISTRESS, ABLE TO TOLERATE O2 WELL. NOT IN APPARENT DISTRESS. REMAINED SR ON MONITOR. IVF CONTINUED ORDERED. SKIN CARE RENDERED. SAFETY MEASURES ENSURED. ASPIRATION PRECAUTIONS ENSURED. AMN LABS DRAWN RESULTS PENDING. CONTINUOUSLY MONITORED. ENDORSED.
[2017-07-13 07:45] LABS: BASOPHILS % (AUTO) 0.2 % (0.0-2.0); EOSINOPHILS # (AUTO) 0.2 /CMM (0.0-0.7); EOSINOPHILS % (AUTO) 2.2 % (0.0-6.0); HEMATOCRIT 33 % (39-51); LYMPHOCYTES # (AUTO) 1.1 /CMM (0.8-4.8); LYMPHOCYTES % (AUTO) 13.5 % (20.0-44.0); MEAN CORPUSCULAR HEMOGLOBIN 28 PG (26.0-33.0); MEAN CORPUSCULAR HGB CONC 34 g/dl (31.0-36.0); MEAN CORPUSCULAR VOLUME 83 fL (80-96); MONOCYTES # (AUTO) 0.5 /CMM (0.1-1.30); NEUTROPHILS # (AUTO) 6.1 /CMM (1.8-8.9); NEUTROPHILS % (AUTO) 77.1 % (43.0-81.0); PLATELET COUNT (AUTO) 208 /CMM (150-450); RDW COEFFICIENT OF VARIATION 13.5 (11.5-15.0); RED BLOOD CELL COUNT(AUTO) 3.91 MIL/uL (4.5-6.0); WHITE BLOOD COUNT (AUTO) 7.9 K/uL (4.3-11.0)
[2017-07-13 07:56] LABS: ALANINE AMINOTRANSFERASE 19 U/L (12-78); ALBUMIN 1.9 g/dL (3.4-5.0); ALKALINE PHOSPHATASE 65 U/L (46-116); ASPARTATE AMINOTRANSFERASE 36 U/L (15-37); BILIRUBIN,TOTAL 0.4 mg/dL (0.2-1.0); CALCIUM, SERUM 7.8 mg/dL (8.5-10.1); CARBON DIOXIDE 25 mmol/L (21-32); CHLORIDE 108 mmol/L (98-107); CREATININE 0.6 mg/dL (0.6-1.3); GLUCOSE 115 mg/dL (74-106); POTASSIUM 3.5 mmol/L (3.5-5.1); SODIUM SERUM 141 mmol/L (136-145); TOTAL PROTEIN, SERUM 6.1 g/dL (6.4-8.2); TROPONIN I 0.077 ng/mL (0.00-0.056); UREA NITROGEN, BLOOD 14 mg/dL (7-18)
--- NOTE | 2017-07-13 07:57 | NUR ---
RN MIN: pt.is with open eyes, short eyes contact, unable to follow commands, rest, non-verbal, no grimacing, O2 sat. 94-96% on 2L nc, GTF residual WNL, SR, SBP over 100, heels of off pressure
[2017-07-13 08:02] LABS: CREATINE KINASE MB 3.5 ng/mL (0-3.6)
[2017-07-13 08:14] LABS: INR 1.11 (0.87-1.13)
--- NOTE | 2017-07-13 09:09 | NUR ---
WOUND CARE CONSULT: PT PRESENTS WITH LEFT HIP NONBLANCHABLE REDNESS (STAGE 1) AND RT HEEL DEEP TISSUE INJURY (INTACT), BOTH PRESENT ON ADMISSION. PT IS INCONTINENT OF STOOL AND IMMOBILE. FIRST STEP MATTRESS ORDERED. ALL SKIN PROTECTION RECOMMENDATIONS DISCUSSED WITH NURSING STAFF. WILL SEE PRN. TIWARI IN AGREEMENT WITH PLAN OF CARE. Addendum: 07/13/17 at 0910 by GEORGE NELSON WNDNU Amended: Links added.
--- NOTE | 2017-07-13 10:20 | NUR ---
RN MIN: W/c consult is done, placed on KCI mattress
--- NOTE | 2017-07-13 12:31 | NUR ---
RN MIN: pt.family is in room, updated with pt.current condition, VS, GTF, IVF, skin problems, orders, POC
--- NOTE | 2017-07-13 13:35 | NUR ---
RN MIN: Johanna Acosta, PSYCHIATRY RESIDENT is in room, updated with pt.current condition, neuro status, VS, SBP 168 episode, I/O, GTF, IVF, pt.is on 2L O2 n/c now (in progress), but needs suctions d/t upper airway thick secretion, O2 sat. over 94%, family visit, see new orders
--- NOTE | 2017-07-13 18:25 | NUR ---
RT DID NOT DELIVER HHN TX'S. RT UNAWARE OF ORDER.
--- NOTE | 2017-07-13 20:00 | NUR ---
renata rn notes received pts on bed awake and responsive, on 2 liters of 02 via nc ,on tele sr on the monitor , no sob no distress noted , no facial grimaces noted. v/s stable afebrile, hob elevated for aspiration precaution ,on gt feeding Fiber[employer] 50cc/hr well tolerated no residual noted.with rfa g# 18 intact and patent, with ivf of ns at 75cc/hr infusing well, due meds given as ordered , call light within reach , all needs attended too, kept pts clean dry and comfortable,will continue to monitor pts.
[2017-07-14] VITALS (7 sets, daily range): BP systolic 122–160; BP diastolic 50–75
--- NOTE | 2017-07-14 06:56 | NUR ---
MIN RN NOTES PTS REMAINS ON VENTILATOR DEPENDENT AC SETTING WILL TOLERATED , GT FEEDING ON PROGRESS NO RESIDUAL NOTED , HOB ELEVATED FOR ASPIRATION PRECAUTION , SUCTION SECRETION DONE AND PRN .WILL ENDORSE TO RN DAY SHIFT FOR CONTINUITY OF CARE.
[2017-07-14 07:40] LABS: CALCIUM, SERUM 8.5 mg/dL (8.5-10.1); CARBON DIOXIDE 26 mmol/L (21-32); CHLORIDE 105 mmol/L (98-107); CREATININE 0.6 mg/dL (0.6-1.3); GLUCOSE 166 mg/dL (74-106); MAGNESIUM 1.9 mg/dL (1.8-2.4); PHOSPHORUS 2.3 mg/dL (2.5-4.9); SODIUM SERUM 139 mmol/L (136-145); UREA NITROGEN, BLOOD 14 mg/dL (7-18)
[2017-07-14 07:50] LABS: BASOPHILS % (AUTO) 0.2 % (0.0-2.0); HEMATOCRIT 35 % (39-51); HEMOGLOBIN 11.6 g/dL (13.5-17.5); LYMPHOCYTES # (AUTO) 0.7 /CMM (0.8-4.8); LYMPHOCYTES % (AUTO) 11.1 % (20.0-44.0); MEAN CORPUSCULAR HEMOGLOBIN 28 PG (26.0-33.0); MEAN CORPUSCULAR HGB CONC 33 g/dl (31.0-36.0); MEAN CORPUSCULAR VOLUME 83 fL (80-96); MONOCYTES # (AUTO) 0.2 /CMM (0.1-1.30); MONOCYTES % (AUTO) 3.3 % (2.0-12.0); NEUTROPHILS # (AUTO) 5.7 /CMM (1.8-8.9); NEUTROPHILS % (AUTO) 85.4 % (43.0-81.0); PLATELET COUNT (AUTO) 222 /CMM (150-450); RDW COEFFICIENT OF VARIATION 13.3 (11.5-15.0); RED BLOOD CELL COUNT(AUTO) 4.19 MIL/uL (4.5-6.0); WHITE BLOOD COUNT (AUTO) 6.7 K/uL (4.3-11.0)
--- NOTE | 2017-07-14 14:26 | NUR ---
RN NOTE ONE NEW VERBAL ORDER FROM Irvin LE/Keisha IVF
--- NOTE | 2017-07-14 19:11 | NUR ---
end of shift resting in bed. no acute complications or change of condition. provided oral suction and pulmonary toileting. call light in reach
--- NOTE | 2017-07-14 20:10 | NUR ---
RN INITIAL NOTES: PATIENT REMAINED IN BED NOT IN APPARENT DISTRESS, ABLE TO TOLERATE O2 WELL. NOT IN APPARENT DISTRESS. REMAINED SR ON MONITOR. IVF CONTINUED ORDERED. SKIN CARE RENDERED. SAFETY MEASURES ENSURED. ASPIRATION PRECAUTIONS ENSURED. AMN LABS DRAWN RESULTS PENDING. CONTINUOUSLY MONITORED. ENDORSED.
[2017-07-15] VITALS (7 sets, daily range): BP systolic 111–161; BP diastolic 55–93
--- NOTE | 2017-07-15 06:03 | NUR ---
CORPORATE QUALITY ASSURANCE MANAGER TD NOTES: ENDORSED PATIENT IN BED NOT IN APPARENT DISTRESS, ABLE TO TOLERATE O2 WELL. NOT IN APPARENT DISTRESS. REMAINED SR ON MONITOR. IVF CONTINUED ORDERED. SKIN CARE RENDERED. SAFETY MEASURES ENSURED. ASPIRATION PRECAUTIONS ENSURED. AMN LABS DRAWN RESULTS PENDING. CONTINUOUSLY MONITORED. ENDORSED.
[2017-07-15 07:04] LABS: CALCIUM, SERUM 8.2 mg/dL (8.5-10.1); CARBON DIOXIDE 29 mmol/L (21-32); CHLORIDE 106 mmol/L (98-107); CREATININE 0.6 mg/dL (0.6-1.3); GLUCOSE 150 mg/dL (74-106); PHOSPHORUS 2.3 mg/dL (2.5-4.9); POTASSIUM 3.9 mmol/L (3.5-5.1); SODIUM SERUM 140 mmol/L (136-145); UREA NITROGEN, BLOOD 15 mg/dL (7-18)
--- NOTE | 2017-07-15 08:00 | NUR ---
TD/RN AM SHIFT INITIAL NOTES RECEIVED PT AWAKE IN BED, NO ACUTE CHANGE OF CONDITION OR FEVER NOTED. PT IS NON-VERBAL, NO GRIMACING. VENTILATOR DEPENDENT RATES SET PRESCRIBED, SATURATING @ 98%, LUNG SOUNDS RHONCHI, SUCTIONED FOR AIRWAY CLEARANCE. ON TELE MONITORING WITH SINUS RHYTHM, HR 67. ON GOING IV SITES FLUSHED PATENT WITH NO S/S OF INFECTION, ON TKO. GT FEEDING ON GOING @ 50CC/HR, NO GASTRIC RESIDUAL NOTED, FLUSHED, PATENT. ADAM CATHETER INTACT NOTED WITH CLEAR YELLOW URINE OUTPUT. PT IS COMFORTABLE. SCHEDULED AM MEDS TO BE GIVEN. CL WITHIN REACHED AND SAFETY MAINTAINED. ON GOING MONITORING. Addendum: 07/15/17 at 0838 by BYRON NICHOLSON RN ERROR IN CHARTING: PT NOT VENTILATOR DEPENDENT, ON 3L O2 VIA N/C.
--- NOTE | 2017-07-15 12:00 | NUR ---
TD/RN NOON ROUNDS PT NOTED WITH CONGESTIVE LUNG SOUNDS, SUCTIONED ORALLY, SATURATING WELL, NO SOB. MONITORING CONTINUED.
--- NOTE | 2017-07-15 17:45 | NUR ---
TD/RN AFTERNOON ROUNDS PM CARE PROVIDED, NO ACUTE CHANGE OF CONDITION. SUCTIONED. MONITORING CONTINUED.
--- NOTE | 2017-07-15 19:21 | NUR ---
TD/RN AM SHIFT END NOTES NO ACUTE CHANGE OF CONDITION NOTED DURING THE SHIFT. ALL NEEDS MET. PT ENDORSED TO PM NURSE TO CONTINUE CARE. CL WITHIN REACHED AND SAFETY MAINTAINED.
--- NOTE | 2017-07-15 19:30 | NUR ---
MIN RN INITIAL NOTE PT RECEIVED IN BED RESTING. NON VERBAL. ON 3L OF O2 VIA NASAL CANNULA AND SATURATING @96%. PRODUCTIVE COUGH NOTED. UPON AUSCULTATION CRACKLES NOTED THROUGHOUT LUNG HIGGINS. BOWEL SOUNDS PRESENT IN ALL QUADRANTS. HEART SOUNDS AUSCULTATED. TELE- SINUS RHYTHM 80'S. IV SITES INTACT, CLEAN AND FLUSHING WELL. GTUBE CLEAN AND FLUSHING WELL WITHOUT NOTED RESIDUALS. ADAM CATHETER IN PLACE AND DRAINING YELLOW URINE WITH SEDIMENT NOTED. CALL LIGHT WITHIN REACH. WILL CONTINUE TO MONITOR.
[2017-07-16] VITALS: BP 139/85
[2017-07-16 04:00] VITALS: BP 121/48
--- NOTE | 2017-07-16 06:30 | NUR ---
MIN RN CLOSING NOTE PT REMAINED STABLE DURING SHIFT. PT SUCTIONED NEEDED AND WELL TOLERATED. REPOSITIONED Q2H. KEPT CLEAN AND DRY. ALL NEEDS ATTENDED TO PROMPTLY. NO SOB NOTED. NO C/O DISCOMFORT NOTED. ALL DUE MEDS GIVEN ORDERED AND WELL TOLERATED. WILL ENDORSE TO NEXT SHIFT FOR CONTINUITY OF CARE.
[2017-07-16 07:04] LABS: HEMATOCRIT 34 % (39-51); HEMOGLOBIN 11.2 g/dL (13.5-17.5); LYMPHOCYTES # (AUTO) 0.5 /CMM (0.8-4.8); LYMPHOCYTES % (AUTO) 5.9 % (20.0-44.0); MEAN CORPUSCULAR HEMOGLOBIN 28 PG (26.0-33.0); MEAN CORPUSCULAR HGB CONC 34 g/dl (31.0-36.0); MEAN CORPUSCULAR VOLUME 83 fL (80-96); MONOCYTES # (AUTO) 0.4 /CMM (0.1-1.30); NEUTROPHILS % (AUTO) 90.1 % (43.0-81.0); PLATELET COUNT (AUTO) 220 /CMM (150-450); RDW COEFFICIENT OF VARIATION 13.3 (11.5-15.0); RED BLOOD CELL COUNT(AUTO) 4.03 MIL/uL (4.5-6.0); WHITE BLOOD COUNT (AUTO) 8.8 K/uL (4.3-11.0)
[2017-07-16 07:29] LABS: CALCIUM, SERUM 8.1 mg/dL (8.5-10.1); CARBON DIOXIDE 29 mmol/L (21-32); CHLORIDE 104 mmol/L (98-107); CREATININE 0.6 mg/dL (0.6-1.3); GLUCOSE 173 mg/dL (74-106); MAGNESIUM 2.1 mg/dL (1.8-2.4); PHOSPHORUS 2.5 mg/dL (2.5-4.9); POTASSIUM 3.9 mmol/L (3.5-5.1); SODIUM SERUM 140 mmol/L (136-145); UREA NITROGEN, BLOOD 17 mg/dL (7-18)
--- NOTE | 2017-07-16 07:30 | NUR ---
MIN/RN: Pt received in bed, awake, responds to name, unable to follow commands, rhonchi noted throughout lungs. Suctioned thin white secretions orally. HOB elevated per aspiration precautions. Tolerating TF well, 10 cc residual noted. FC draining well to gravity. IV sites flushed and patent. On KCI mattress. Bilat heels offloaded. Alarm sounds audible. Will cont to monitor pt.
[2017-07-16 08:00] VITALS: BP 133/59
[2017-07-16 12:00] VITALS: BP 139/73
--- NOTE | 2017-07-16 12:00 | NUR ---
MIN/RN: Johanna Acosta, PHARMACIST IN CHARGE OWNER at bedside. Pt continues to have thick pharyngeal secretions requiring deep suctioning q4-6 hrs; pt unable to expectorate on his own. Rhonchi sounds present. Per PHARMACIST IN CHARGE OWNER, for discharge planning tomorrow, continue current respiratory treatments.
[2017-07-16] MEDS ORDERED: VANC750P5 IV (12:49)
[2017-07-16] MEDS ORDERED: ALBU2.5V13 NEB (12:49)
[2017-07-16] MEDS ORDERED: PIPE3.376 IV (12:49)
[2017-07-16] MEDS ORDERED: NUTR250L48 GT (12:49)
[2017-07-16] MEDS ORDERED: methylPREDNISolone SOD SUCC IV (12:49)
--- NOTE | 2017-07-16 15:00 | NUR ---
MIN/RN: Bed bath, wound care rendered. Pt tolerated well. Turned and repositioned for comfort.
[2017-07-16 16:00] VITALS: BP_SYST 127; BP_SYST 138; BP_DIAS 69; BP_DIAS 81
--- NOTE | 2017-07-16 19:02 | NUR ---
MIN/RN: Pt resting in bed comfortably, eyes closed, breathing even and unlabored, FC draining well to gravity. IV sites patent and flushed. Safety measures in place, will endorse care to PM rn for uday.
[2017-07-16 20:00] VITALS: BP_SYST 136; BP_SYST 137; BP_DIAS 66; BP_DIAS 83
[2017-07-17] VITALS (7 sets, daily range): BP systolic 137–152; BP diastolic 68–85
[2017-07-17 07:35] LABS: BASOPHILS % (AUTO) 0.1 % (0.0-2.0); HEMATOCRIT 35 % (39-51); HEMOGLOBIN 11.6 g/dL (13.5-17.5); LYMPHOCYTES # (AUTO) 0.5 /CMM (0.8-4.8); LYMPHOCYTES % (AUTO) 7.4 % (20.0-44.0); MEAN CORPUSCULAR HEMOGLOBIN 28 PG (26.0-33.0); MEAN CORPUSCULAR HGB CONC 34 g/dl (31.0-36.0); MEAN CORPUSCULAR VOLUME 83 fL (80-96); MONOCYTES # (AUTO) 0.3 /CMM (0.1-1.30); MONOCYTES % (AUTO) 4.8 % (2.0-12.0); NEUTROPHILS % (AUTO) 87.7 % (43.0-81.0); PLATELET COUNT (AUTO) 202 /CMM (150-450); RDW COEFFICIENT OF VARIATION 13.2 (11.5-15.0); RED BLOOD CELL COUNT(AUTO) 4.15 MIL/uL (4.5-6.0); WHITE BLOOD COUNT (AUTO) 6.9 K/uL (4.3-11.0)
--- NOTE | 2017-07-17 07:45 | NUR ---
MIN/RN - Initial Notes Received pt in bed, with eyes closed. Responds to verbal and tactile stimuli, unable to follow commands. Rhonchi noted throughout lungs. Suctioned thin/thick white secretions orally. HOB elevated per aspiration precautions. Tolerating TF well, no residual noted. Hernandez catheter draining urine to gravity. IV sites flushed and patent. On KCI mattress. Bilateral heels offloaded. Alarm sounds audible. Will continue to monitor pt.
[2017-07-17 07:58] LABS: CALCIUM, SERUM 8.1 mg/dL (8.5-10.1); CARBON DIOXIDE 29 mmol/L (21-32); CHLORIDE 105 mmol/L (98-107); CREATININE 0.7 mg/dL (0.6-1.3); GLUCOSE 175 mg/dL (74-106); MAGNESIUM 2.2 mg/dL (1.8-2.4); POTASSIUM 3.8 mmol/L (3.5-5.1); SODIUM SERUM 140 mmol/L (136-145); UREA NITROGEN, BLOOD 18 mg/dL (7-18)
--- NOTE | 2017-07-17 14:05 | NUR ---
MIN/RN - Notes Pt seen and evaluated by Pillo Bueno NP at bedside. HAZARDOUS WASTE MATERIAL TECHNICIAN made aware of CXR result taken on 07/14 - possible ileus or obstruction. Orders received to stop tube feeding for now and for stat KUB. Will carry out.
--- NOTE | 2017-07-17 14:39 | NUR ---
MS/RN - Notes Pt appears to be in pain, squirming and kicking extremities and facial grimacing, increase in BP 158/85 . Administered Morphine 2mg IVP as ordered for PRN pain. Comfort measures in place. Will continue to monitor.
--- NOTE | 2017-07-17 15:14 | NUR ---
MS/RN - Notes Pt appears to be more comfortable at this time. Squirming and kicking ceased. KUB results relayed to Pillo Bueno NP, with orders to restart tube feeding and administer x1 Lactulose via Gtube. Will carry out.
--- NOTE | 2017-07-17 17:31 | NUR ---
MS/RN - Notes Patient noted with large bowel movement.
--- NOTE | 2017-07-17 19:30 | NUR ---
RN Initial Notes Received patient in bed, noted with eyes closed. Responds to verbal and tactile stimuli, but unable to follow commands. Rhonchi noted throughout lungs. Suctioned thin white secretions orally. HOB elevated per aspiration precautions. Tolerating TF well, no residual noted. Hernandez catheter draining urine to gravity. IV sites flushed and patent. On KCI mattress. Bilateral heels offloaded. Alarm sounds audible. Will continue to monitor pt.
[2017-07-18 04:00] VITALS: BP 135/58
--- NOTE | 2017-07-18 06:33 | NUR ---
RN CLOSING NOTES PATIENT RESTING IN BED, APPEARS COMFORTABLE. NO ACUTE EVENTS OCCURRED THROUGHOUT SHIFT. WILL ENDORSE THE PATIENT TO THE AM SHIFT NURSE FOR STARR
[2017-07-18 07:02] LABS: CALCIUM, SERUM 8.1 mg/dL (8.5-10.1); CHLORIDE 103 mmol/L (98-107); CREATININE 0.6 mg/dL (0.6-1.3); GLUCOSE 134 mg/dL (74-106); SODIUM SERUM 137 mmol/L (136-145); UREA NITROGEN, BLOOD 16 mg/dL (7-18)
[2017-07-18 07:07] LABS: CARBON DIOXIDE 30 mmol/L (21-32)
--- NOTE | 2017-07-18 07:15 | NUR ---
MS RN NOTE: RECEIVED PT IN BED, NONVERBAL, EYES OPENED, RESPONDS TO TACTILE STIMULI. ON 3LPM O2 VIA NC, HOB ELEVATED PER ASPIRATION PRECAUTIONS AND SUCTION KIT AT BEDSIDE. RFA PATENT AND INTACT. ON FBS AT 60CC/HR. KCI MATTRESS AND DVT PUMPS NOTED. B/L HEELS OFFLOADED. F/C DRAINING TO GRAVITY WITH YELLOW URINE. BED LOW, LOCKED, X2 SIDERAILS UP WITH CALL LIGHT WITHIN REACH. WILL CONT TO MONITOR.
[2017-07-18 08:00] VITALS: BP 144/63
[2017-07-18 16:00] VITALS: BP 144/87
--- NOTE | 2017-07-18 18:00 | NUR ---
MS RN NOTE: [facility]. REPORT GIVEN TO FELTMAKER AND WEIGHER LUIS. VS: 97.7 TEMP, 78 HR, 16 RR, 95% O2 SAT, 144/87 BP. NO BELONGINGS NOTED. UNABLE TO SIGN D/C FORMS DUE TO CONDITION; COSIGNED WITH ANOTHER RN. ORDERS CARRIED OUT. D/C FORMS GIVEN TO EMT. PT LEFT VIA GURNEY WITH 2 EMT AT 1800.
== END 2017-07-18 18:03 | DRG 871 ==
LOC: ER 19:10 → TELE-TD 21:25 → MEDSG1 07-17 14:13
PROVIDERS: ADMIT Internal Medicine; ATTEND Internal Medicine
DX: A41.9 Sepsis, unspecified organism (principal); E43 Unspecified severe protein-calorie malnutrition; I21.4 Non-ST elevation (NSTEMI) myocardial infarction; J69.0 Pneumonitis due to inhalation of food and vomit; G93.41 Metabolic encephalopathy; R53.2 Functional quadriplegia; R13.10 Dysphagia, unspecified; D68.59 Other primary thrombophilia; J44.1 Chronic obstructive pulmonary disease with (acute) exacerbation; E78.5 Hyperlipidemia, unspecified; F41.9 Anxiety disorder, unspecified; M19.90 Unspecified osteoarthritis, unspecified site; F32.9 Major depressive disorder, single episode, unspecified; G30.9 Alzheimer's disease, unspecified; I10 Essential (primary) hypertension; Z87.01 Personal history of pneumonia (recurrent); F02.80 Dementia in other diseases classified elsewhere, unspecified severity, without behavioral disturbance, psychotic disturbance, mood disturbance, and anxiety; Z93.1 Gastrostomy status; E88.09 Other disorders of plasma-protein metabolism, not elsewhere classified; Z68.22 Body mass index [BMI] 22.0-22.9, adult
CPT/HCPCS: 31720; 36415; 71010-TC; 74000-TC; 80048-TC; 80053-TC; 80076-TC; 80202-TC; 81000-TC; 82553-TC; 83605-TC; 83735-TC; 83880; 84100-TC; 84484-TC; 85025-TC; 85385-TC; 85610-TC; 85730-TC; 87040-TC; 87070-TC; 87081-TC; 87086-TC; 93307-TC; 94762-TC; 94799-TC; A4606; A6402; A6403; A9563; J1956; J2270; J2543; J2930; J3370; J3490; J7030; J7050; J7060; J8597; Z7610

== ENCOUNTER 2018-03-22 19:08 | Inpatient (IN) | payer MEDICARE, MEDICAID ==
[~2018-03-22] VITALS: Ht 165.1 cm; Wt 54.4 kg
[~2018-03-22 19:08] MED LIST changes: +ACET-868 GT; -ACET-868 PO; +ALBU2.5V13 NEB; +DOCU-141 GT; -DONE10TA44 PO; +ERYT250C68 GT; +FERR325T23 GT; -IPRA3AMP HHN; +IPRA3AMP23 HHN; +MAGN400O6 GT; -MAGN400O6 PO; +METO-295 GT; +NUTR250L48 GT; +PIPE3.376 IV; +RANI150T43 GT; +VANC750P8 IV; +methylPREDNISolone SOD SUCC IV
--- NOTE | 2018-03-22 19:26 | NUR ---
PT BBRA C/O SHORTNESS OF BREATH SINCE YESTERDAY. PER FACILITY, PT SPO2 88% ON RA. PT HAS HX OF COPD AND USES NC 2L/M. GCS 10. RESP EVEN, TACHYPNIC, WITH MILD LABOR. MILD S/S OF ACUTE DISTRESS NOTED. BILATERAL CRACKLES AUSCULATED IN LUNG HIGGINS. PT PLACED ON SIMPLE MASK 4L/M PER MD'S ORDERS. SKIN HOT TO TOUCH AND DAMP. PT PLACED ON ASSEMBLER METAL BUILDING AND POX. PT SAFETY AND COMFORT MEASURES IN PLACE. MD BEDSIDE FOR EVAL. WILL CONTINUE TO MONITOR PT.
[2018-03-22] MEDS ORDERED: IPRATROPIUM NEB FS 0.5 MG/2.5 ML AMPUL.NEB NEB ONE (19:30)
[2018-03-22] MEDS ORDERED: ALBUTEROL FS 2.5 MG/3 ML VIAL.NEB CONTNEB ONE (19:30)
[2018-03-22] MEDS ORDERED: methylPREDNISolone SOD SUCC 125 MG/2ML VIAL IV ONE (19:30)
[2018-03-22] MEDS ORDERED: methylPREDNISolone SOD SUCC 125 MG/2ML VIAL ONE (19:31)
[2018-03-22 19:38] LABS: HEMOGLOBIN 13.5 g/dL (13.5-17.5); WHITE BLOOD COUNT (AUTO) 16.3 K/uL (4.3-11.0)
[2018-03-22 19:43] LABS: BASOPHILS # (AUTO) 0.4 /CMM (0.0-0.2); BASOPHILS % (AUTO) 2.3 % (0.0-2.0); CALCIUM, SERUM 9.1 mg/dL (8.5-10.1); CARBON DIOXIDE 35 mmol/L (21-32); CHLORIDE 99 mmol/L (98-107); CREATININE 0.7 mg/dL (0.6-1.3); EOSINOPHILS % (AUTO) 0.7 % (0.0-6.0); GLUCOSE 121 mg/dL (74-106); HEMATOCRIT 39 % (39-51); LYMPHOCYTES # (AUTO) 1.9 /CMM (0.8-4.8); LYMPHOCYTES % (AUTO) 11.6 % (20.0-44.0); MEAN CORPUSCULAR HGB CONC 34 g/dl (31.0-36.0); MEAN CORPUSCULAR VOLUME 80 fL (80-96); MONOCYTES # (AUTO) 0.6 /CMM (0.1-1.30); NEUTROPHILS # (AUTO) 13.2 /CMM (1.8-8.9); NEUTROPHILS % (AUTO) 81.4 % (43.0-81.0); PLATELET COUNT (AUTO) 338 /CMM (150-450); POTASSIUM 3.5 mmol/L (3.5-5.1); RED BLOOD CELL COUNT(AUTO) 4.93 MIL/uL (4.5-6.0); SODIUM SERUM 135 mmol/L (136-145); UREA NITROGEN, BLOOD 26 mg/dL (7-18)
[2018-03-22 19:51] LABS: TROPONIN I 0.027 ng/mL (0.00-0.056)
[2018-03-22] MEDS ORDERED: IPRATROPIUM NEB FS 0.5 MG/2.5 ML AMPUL.NEB ONE (19:59)
[2018-03-22] MEDS ORDERED: ALBUTEROL FS 2.5 MG/3 ML VIAL.NEB ONE (19:59)
[2018-03-22 20:00] LABS: ALANINE AMINOTRANSFERASE 47 U/L (12-78); ALBUMIN 2.4 g/dL (3.4-5.0); ALKALINE PHOSPHATASE 106 U/L (46-116); ASPARTATE AMINOTRANSFERASE 54 U/L (15-37); B-TYPE NATRIURETIC PEPTIDE 163 PG/ML (0-125); BILIRUBIN,DIRECT 0.1 mg/dL (0.0-0.2); BILIRUBIN,TOTAL 0.3 mg/dL (0.2-1.0)
--- NOTE | 2018-03-22 20:02 | NUR ---
RT BEDSIDE FOR BREATHING TREATMENT
[2018-03-22 20:08] LABS: BAND % (MANUAL) 2 % (0.0-5.0); BASOPHILS % (MANUAL) 0 % (0.0-2.0); EOSINOPHILS % (MANUAL) 0 % (0-4); LYMPHOCYTES % (MANUAL) 14 % (16-48); MONOCYTES % (MANUAL) 1 % (0-11.0); NEUTROPHILS % (MANUAL) 83 (42-76)
--- NOTE | 2018-03-22 20:36 | NUR ---
PT WAS NT SUCTIONED VIA THE RT NARE MODERATE AMOUNT OF THICK WHITE SECRETIONS REMOVED, PT TOLERATED PROCEDURE NO ADVERSE REACTION NOTED
[2018-03-22] MEDS ORDERED: PANT40TA2 GT (20:59)
[2018-03-22] MEDS ORDERED: GLYC1TAB5 GT (20:59)
[2018-03-22] MEDS ORDERED: SACC250C GT (20:59)
[2018-03-22] MEDS ORDERED: PIPERACILLIN /TAZOBACTAM 3.375 G in IV D5W 50 ML IV ONE (21:00)
[2018-03-22] MEDS ORDERED: LEVOFLOXACIN 750 MG /D5W 150ML 150 ML IV ONE ×2 (21:00)
[2018-03-22] MEDS ORDERED: PIPERACILLIN /TAZOBACTAM 3.375 G VIAL IV ONE (21:00)
--- NOTE | 2018-03-22 21:07 | NUR ---
CALLED NURSING SUP. FOR TELE BED
--- NOTE | 2018-03-22 21:30 | NUR ---
REPORT GIVEN TO ELI TIMMONS FOR STARR.
[2018-03-22 22:00] VITALS: BP 118/68
--- NOTE | 2018-03-22 22:00 | NUR ---
MICROBIOLOGICAL LAB TECHNICIAN OPENING NOTES: RECEIVED PT FROM RNMARIAM. PT IS APHASIC. PT OPENS EYES. PT IS A/OX1 TO NAME. PT ON 4LPM VIA SIMPLE MASK. PT HAS IV ON R FOREARM #18G AND IS BEING INFUSED WITH LEVAQUIN AT 100ML/HR. PT TO BE PLACED ON TELE BOX. PT ALSO HAS G TUBE. HAS BEEN FLUSHED. BED ALARM ACTIVATED. CALL LIGHT WITHIN PT'S REACH. BED KEPT IN LOW, LOCKED POSITION, AND SIDE RAILS X 2UP. WILL CONTINUE TO MONITOR PT.
--- NOTE | 2018-03-22 22:53 | NUR ---
PROFESSOR OF ENGINEERING NOTES: PAGED DR. VILLANUEVA'S OFFICE. AWAITING FOR CALL BACK.
--- NOTE | 2018-03-22 22:55 | NUR ---
FILLER BLOCK INSERTER REMOVER NOTES: SPOKE WITH DR. VILLANUEVA. HE WILL DO MED RECON TOMORROW IN THE MORNING. ALSO, RESUME FEEDING TOMORROW IN THE MORNING. OK TO GIVE TYLENOL VIA G TUBE INCASE OF FEVER. AND GOT CLARIFICATION FOR ZOSYN FOR Q6HRS.
[2018-03-22] MEDS: IV D5/ 0.9% NACL 1,000 ML IV SCH (23:07)
[2018-03-23] VITALS: BP 138/73
--- NOTE | 2018-03-23 01:30 | NUR ---
SUPERINTENDENT GREENS NOTES: DAAM CATH STILL HAS NO OUTPUT. BLADDER SCANNER SHOWS >200 ML URINE RETAINED. IRRIGATED WITH NORMAL SALINE. NO URINE CAME OUT. BLOOD CLOT REMOVED. BLOOD STARTED TO COME OUT WITH BLOOD CLOTS SHOWN. REMOVED ADAM. URINE STARTED TO COME OUT. CHARGE NURSE AWARE. WILL CONTINUE TO MONITOR. DIAPERED PT.
[2018-03-23 04:26] VITALS: BP 144/79
[2018-03-23] MEDS ORDERED: PIPERACILLIN /TAZOBACTAM 3.375 G VIAL IV ONE (05:20)
[2018-03-23] MEDS: PIPERACILLIN /TAZOBACTAM 3.375 G in IV D5W 50 ML IV SCH ×4 (05:25→23:57)
--- NOTE | 2018-03-23 05:25 | NUR ---
BUSINESS DEVELOPMENT CONSULTANT NOTES: ZOSYN WAS OVERRODE BY CHARGE NURSE. HAD TO MANUALLY ADMIN SINCE GUN WILL NOT SCAN MED.
--- NOTE | 2018-03-23 06:27 | NUR ---
CRANE OPERATOR NOTES: PAGED DR. VILLANUEVA. AWAITING FOR CALLBACK.
--- NOTE | 2018-03-23 06:32 | NUR ---
POISER CLOSING NOTES: ALL NEEDS WERE ATTENDED AND ANTICIPATED FOR. PT KEPT CLEAN, DRY, AND COMFORTABLE. PT ON SIMPLE MASK AND IS ON 6LPM VIA. PT CONNECTED TO PULSE OX. FREQUENT SUCTIONING PERFORMED PRN. SUCTION SET UP IN PLACE. PT HAS IV ON R FOREARM #18G AND IS BEING INFUSED WITH D5NS @75ML/HR. BED ALARM ACTIVATED. PT ON TELE BOX AND READING SHOWS SR. PT APHASIC BUT OPENS EYES. CALL LIGHT WITHIN PT'S REACH. BED KEPT IN LOW, LOCKED POSITION, AND SIDE RAILS X 2UP. WILL ENDORSE TO AM NURSE FOR STARR.
[2018-03-23 06:49] LABS: BASOPHILS % (AUTO) 0.1 % (0.0-2.0); HEMATOCRIT 40 % (39-51); LYMPHOCYTES # (AUTO) 0.5 /CMM (0.8-4.8); LYMPHOCYTES % (AUTO) 4.5 % (20.0-44.0); MEAN CORPUSCULAR HGB CONC 33 g/dl (31.0-36.0); MEAN CORPUSCULAR VOLUME 82 fL (80-96); MONOCYTES % (AUTO) 0.4 % (2.0-12.0); NEUTROPHILS # (AUTO) 10.1 /CMM (1.8-8.9); PLATELET COUNT (AUTO) 295 /CMM (150-450); RDW COEFFICIENT OF VARIATION 16.6 (11.5-15.0); RED BLOOD CELL COUNT(AUTO) 4.86 MIL/uL (4.5-6.0); WHITE BLOOD COUNT (AUTO) 10.6 K/uL (4.3-11.0)
[2018-03-23 07:08] LABS: CALCIUM, SERUM 9.2 mg/dL (8.5-10.1); CARBON DIOXIDE 33 mmol/L (21-32); CHLORIDE 99 mmol/L (98-107); CREATININE 0.7 mg/dL (0.6-1.3); GLUCOSE 134 mg/dL (74-106); POTASSIUM 4.1 mmol/L (3.5-5.1); SODIUM SERUM 139 mmol/L (136-145); UREA NITROGEN, BLOOD 25 mg/dL (7-18)
[2018-03-23] MEDS ORDERED: DOCU50LI GT (07:27)
[2018-03-23] MEDS ORDERED: PANT40SU2 GT (07:27)
[2018-03-23] MEDS ORDERED: LACT-96 GT (07:27)
[2018-03-23] MEDS ORDERED: CHLO473M5 MM (07:27)
--- NOTE | 2018-03-23 07:41 | NUR ---
EXPLOSIVE ORDNANCE HANDLER OPENING NOTE RECEIVED BEDSIDE SBAR REPORT ON THE PATIENT. PATIENT IS INTERMITTENTLY AWAKE, NON-VERBAL, RESPONSIVE TO TOUCH AND LIGHT PAIN. PATIENT IS BEDBOUND. BED IS LOCKED IN LOWEST POSITION, SIDE RAILS UP X3, BED ALARM IS ON. CHEST RISING EQUALLY/BILATERALLY. SPO2 99% ON 8L OXYGEN VIA FACE MASK. NO S/S OF PAIN/DISCOMFORT AT THIS TIME. VS WNL. ALL NEEDS ARE MET. EXTERNAL TELE MONITOR READING SR 89. CALL LIGHT WITHIN REACH. EDUCATED TO CALL FOR ASSISTANCE USING THE CALL LIGHT AND VERBALIZED UNDERSTANDING. WILL CONTINUE TO ASSESS/MONITOR THROUGHOUT THE SHIFT.
[2018-03-23] MEDS: ALBUTEROL HALF STRENGTH 1.25 MG/3 ML VIAL.NEB NEB PRN (07:56)
[2018-03-23 08:00] VITALS: BP 121/70
[2018-03-23] MEDS ORDERED: BISACODYL SUPP (10 MG) 10 MG/SUPP.RECT SUPP.RECT RC PRN (09:30)
[2018-03-23] MEDS ORDERED: FUROSEMIDE 20 MG/2 ML VIAL IV ONE (09:30)
[2018-03-23] MEDS ORDERED: MAGNESIUM HYDROXIDE 30 ML UDC GT PRN (09:30)
[2018-03-23] MEDS ORDERED: NA PHOS,M-B/NA PHOS,DI-BA 1 EA ENEMA RC PRN (09:30)
[2018-03-23] MEDS: PANTOPRAZOLE 40 MG VIAL IV SCH (09:45)
[2018-03-23] MEDS: methylPREDNISolone SOD SUCC 40 MG/ML VIAL IV SCH ×3 (09:46→17:52)
[2018-03-23] MEDS: GLYCOPYRROLATE 1 MG TABLET GT SCH ×3 (09:48→21:46)
[2018-03-23] MEDS: ENOXAPARIN SODIUM 40 MG/0.4 ML DISP.SYRIN SQ SCH (09:50)
[2018-03-23] MEDS: SCOPOLAMINE HBR 1 EA PATCH.TD72 TD SCH (09:56)
--- NOTE | 2018-03-23 11:15 | NUR ---
WHILE CHANGING THE PATIENT'S DIAPER SMALL SPOT OF BRIGHT PINK BLOOD WAS NOTICES ON A DIAPER AT PENILE AREA. NO EVIDENCE OF HEMATURIA. YELLOW URINE OBSERVED ON THE DIAPER. PENIS IS ASSESSED. OBSERVABLE SMALL BLODY SPOT NOTED AT THE TIP OF THE PENIS IN URETHRAL OPENING PROBABLY S/T URETHRAL IRRITATION CAUSED BY CATHETERIZATION LAST NIGHT. WILL CONTINUE TO ASSESS/MONITOR THROUGHOUT THE SHIFT. CHARGE NURSE HALLEY BERMUDEZ. WILL INFORM .
--- NOTE | 2018-03-23 11:30 | NUR ---
DR VILLANUEVA AT THE BEDSIDE. ALL ASSESSMENT FINDING REVELED WITH THE DOCTOR AT THE [facility]. NO NEW ORDERS RECEIVED AT THIS TIME.
[2018-03-23] MEDS: IV D5/ 0.9% NACL 1,000 ML IV SCH (14:18)
[2018-03-23 16:00] VITALS: BP 119/75
[2018-03-23] MEDS: DOCUSATE SODIUM LIQ 100 MG/10 ML UDC GT SCH (17:52)
--- NOTE | 2018-03-23 18:00 | NUR ---
RECEIVED VERBAL ORDER FROM DR VILLANUEVA FOR CONTINUES PULSE OXIMETRY AND MECHANICAL VTE PROPHYLAXIS. READ BACK AND VERIFIED. WILL FOLLOW ORDER RECEIVED.
--- NOTE | 2018-03-23 19:15 | NUR ---
CUSTOMER GREETER CLOSING NOTE GAVE BEDSIDE SBAR REPORT ON THE PATIENT TO SERVICE AIDE NURSE CHINO FOR STARR. PATIENT IS AWAKE, NON-VERBAL, RESPONSIVE TO TOUCH AND LIGHT PAIN. BED IS LOCKED IN LOWEST POSITION, SIDE RAILS UP X3, BED ALARM IS ON. CHEST RISING EQUALLY/BILATERALLY. SPO2 96% ON 8L OXYGEN VIA FACE MASK. NO S/S OF PAIN/DISCOMFORT AT THIS TIME. VS WNL. ALL NEEDS ARE MET. CALL LIGHT WITHIN REACH. PATIENT REPOSITIONED FOR COMFORT EVERY TWO HOURS. ALL NURSING CARE IS RENDERED. ALL DUE MEDICATIONS ADMINISTERED. DIAPER CHANGED. SMALL SPOT OF BRIGHT PINK URINE NOTED IN PENILE AREA. URETHRA HAS AN EVIDENCE OF SMALL BRIGHT PINK BLOOD DROP. MD AWARE. ENDORSED TO SERVICE AIDE NURSE TO OBSERVE AND MONITOR FOR CHANGES. NO CHANGE OF CONDITION NOTED. CARE PLAN DISCUSSED WITH PATIENT'S FAMILY/BROTHER OVER THE TELEPHONE.
--- NOTE | 2018-03-23 19:20 | NUR ---
RN OPENING NOTES PATIENT RECEIVED IN BED, RECEIVING O2 VIA FACE MASK A@ 8LPM WITH O2 SAT @ 96%, ALSO RECEIVING IVF ORDERED, INFUSING WELL. PATIENT IS NON VERBAL, EYES ARE OPEN, BREATHING EVEN AND UNLABORED, NO FACIAL GRIMACING NOTED, ALL PATIENT'S NEEDS ATTENDED TO. PLACED BED IN LOW POSITION AND LOCKED IN PLACE. CALL LIGHT WITHIN EASY REACH. WILL CONTINUE TO MONITOR PT.
[2018-03-23 20:00] VITALS: BP 118/73
[2018-03-23] MEDS: ALBUTEROL FS 2.5 MG/0.5 ML VIAL.NEB NEB SCH (20:31)
[2018-03-23] MEDS: IPRATROPIUM NEB FS 0.5 MG/2.5 ML AMPUL.NEB NEB SCH (20:31)
[2018-03-23] MEDS: CHLORHEXIDINE GLUCONATE 15 ML UDC MM SCH (21:46)
[2018-03-24] MEDS: ALBUTEROL FS 2.5 MG/0.5 ML VIAL.NEB NEB SCH ×4 (01:46→19:54)
[2018-03-24] MEDS: IPRATROPIUM NEB FS 0.5 MG/2.5 ML AMPUL.NEB NEB SCH ×4 (01:46→19:54)
[2018-03-24] MEDS: GLYCOPYRROLATE 1 MG TABLET GT SCH ×3 (04:56→21:03)
[2018-03-24] MEDS: PIPERACILLIN /TAZOBACTAM 3.375 G in IV D5W 50 ML IV SCH ×4 (05:57→23:42)
--- NOTE | 2018-03-24 06:25 | NUR ---
RN CLOSING NOTES PATIENT LYING IN BED, ASLEEP BUT EASILY AROUSABLE, NON VERBAL, CONTINUES TO RECEIVE IVF ORDERED, OXYGEN TITRATED DOWN TO 4LPM VIA NC, PT TOLERATING WELL WITH O2 SAT @ 96-99%. ALL PATIENT'S NEEDS ATTENDED TO THROUGHOUT THE SHIFT, SUCTIONED NEEDED, ORAL CARE RENDERED, TURNED AND REPOSITIONED Q2H. PLACED CALL LIGHT WITHIN EASY REACH, BED IN LOW POSITION AND LOCKED IN PLACE. WILL ENDORSE TO AM SHIFT NURSE FOR CONTINUITY OF CARE.
[2018-03-24 07:15] LABS: BASOPHILS % (AUTO) 0.5 % (0.0-2.0); EOSINOPHILS % (AUTO) 0.1 % (0.0-6.0); HEMATOCRIT 40 % (39-51); HEMOGLOBIN 13.2 g/dL (13.5-17.5); LYMPHOCYTES # (AUTO) 0.7 /CMM (0.8-4.8); LYMPHOCYTES % (AUTO) 10.6 % (20.0-44.0); MEAN CORPUSCULAR HGB CONC 33 g/dl (31.0-36.0); MEAN CORPUSCULAR VOLUME 82 fL (80-96); MONOCYTES # (AUTO) 0.6 /CMM (0.1-1.30); MONOCYTES % (AUTO) 9.7 % (2.0-12.0); NEUTROPHILS # (AUTO) 5.3 /CMM (1.8-8.9); NEUTROPHILS % (AUTO) 79.1 % (43.0-81.0); PLATELET COUNT (AUTO) 249 /CMM (150-450); RDW COEFFICIENT OF VARIATION 16.9 (11.5-15.0); RED BLOOD CELL COUNT(AUTO) 4.93 MIL/uL (4.5-6.0); WHITE BLOOD COUNT (AUTO) 6.7 K/uL (4.3-11.0)
[2018-03-24 07:26] LABS: CALCIUM, SERUM 9.2 mg/dL (8.5-10.1); CARBON DIOXIDE 30 mmol/L (21-32); CHLORIDE 102 mmol/L (98-107); CREATININE 0.8 mg/dL (0.6-1.3); GLUCOSE 131 mg/dL (74-106); POTASSIUM 3.5 mmol/L (3.5-5.1); SODIUM SERUM 140 mmol/L (136-145); UREA NITROGEN, BLOOD 33 mg/dL (7-18)
--- NOTE | 2018-03-24 07:30 | NUR ---
MSRN OPENING NOTE.S PT RECEIVED A&0X0, EYES OPEN NON VERBAL. PT ENDORSED NOT SLEEPING WELL DURING NIGHT. PT WITH O2 VIA NC AT 4LPM, NO RESP DISTRESS NOTED AT THIS TIME BUT WITH SIGNIFICANT SECRETIONS, SAO2 98%, LUNGS AUSCULTATED WITH BI LAT RHONCHI. SUCTION EQUIPMENT SET UP AT BEDSIDE, ORAL SECRETIONS CLEARED, RT CALLED FOR DEEP SUCTIONING WITH TX. CONT PULSE OX AT BEDSIDE. PT REPOSITIONED TO LEFT SUPINE/SIDE HEELS OFFLOADED. PT WITH IVC AT R FA INTACT AND OPERATIONAL. PT WITH GTUBE INTACT AND CLAMPED. PT BED IN LOWEST LOCKED POSITION WITH HANDRAILSX4. WILL CONTINUE TO MONITOR.
[2018-03-24 08:00] VITALS: BP 144/76
[2018-03-24] MEDS: PANTOPRAZOLE 40 MG VIAL IV SCH (08:13)
[2018-03-24] MEDS: methylPREDNISolone SOD SUCC 40 MG/ML VIAL IV SCH ×3 (08:13→17:00)
[2018-03-24] MEDS: CHLORHEXIDINE GLUCONATE 15 ML UDC MM SCH ×2 (08:13→21:03)
[2018-03-24] MEDS: ENOXAPARIN SODIUM 40 MG/0.4 ML DISP.SYRIN SQ SCH (08:14)
--- NOTE | 2018-03-24 08:53 | NUR ---
MSRN NOTES. ORAL CARE COMPLETED.
--- NOTE | 2018-03-24 11:00 | NUR ---
SECURITY CONSULTANT NOTES. PT RE-STARTED ON TELE PER MD VILLANUEVA'S NOTES.
[2018-03-24 12:00] VITALS: BP_SYST 124; BP_DIAS 84; BP_DIAS 86
[2018-03-24] MEDS ORDERED: FUROSEMIDE 20 MG/2 ML VIAL IV ONE (14:00)
--- NOTE | 2018-03-24 14:00 | NUR ---
CARTOON ANIMATOR NOTES. PT WITH SIGNIFICANT SECRETIONS, RT PREFORMED DEEP SUCTION AND TX WITH GOOD EFFECT. MD VILLANUEVA INFORMED AND REQUESTING CONTINUED HOLD OF DIET AND LASIX 20MG IV X1, ORDERS PLACED.
[2018-03-24] MEDS: IV D5/ 0.9% NACL 1,000 ML IV SCH (14:52)
[2018-03-24 16:00] VITALS: BP 117/82
[2018-03-24] MEDS: DOCUSATE SODIUM LIQ 100 MG/10 ML UDC GT SCH (17:00)
[2018-03-24] MEDS: ACETAMINOPHEN 650 MG/20.3 ML UDC GT PRN (17:00)
--- NOTE | 2018-03-24 18:00 | NUR ---
TEL RN NOTES. PT SECRETIONS IMPROVING AND SAO2 STABLE AT THIS TIME >95%, PT WITHOUT S/S OF DISTRESS OR DISCOMFORT. PT GTF COMMENCED PER RX AT 20CC/HR.
[2018-03-24] MEDS: JEVITY 1.2 CAL 1,000 ML BOTTLE GT PRN (18:04)
--- NOTE | 2018-03-24 18:32 | NUR ---
WORKERS COMPENSATION ATTORNEY CLOSING NOTES PT REMAINS A&0X0, EYES OPEN NON VERBAL. PT TELE:SR 80. PT WITH O2 VIA NC AT 4LPM AND SECRETIONS LESS THAN AT AT START OF SHIFT, SAO2 STABLE <95%. CONT PULSE OX AND SCD'S IN-SITU. PT WITH IVC AND GTUBE INTACT AND OPERATIONAL WITH NAD AT SITES. PT BED IN LOWEST LOCKED POSITION WITH HANDRAILSX4. WOUND CARE PER RX. ALL DAY NURSE DUTIES ATTENDED TO AND PT IS WITHOUT OBVIOUS S/S OF DISTRESS OR DISCOMFORT AT THIS TIME. WILL ENDORSE TO NIGHT NURSE AT BEDSIDE FOR STARR.
--- NOTE | 2018-03-24 19:50 | NUR ---
RN MS NOTES RECEIVED PATIENT IN BED, ALERT AND ORIENTED X 0, NOTED RESPIRATIONS WILL EQUAL RISE AND FALL IN CHEST NO DISTRESS NOTED AT THIS TIME, PATIENT ON 02 VIA NC 4L SATURATION 98%, NOTED RESPIRATIONS AT 24, NO SECRETIONS NOTED AT THIS TIME, HEAD OF BED ELEVATED, G TUBE JEVITY 1.[address], IVF RUNNING , IV SITE TO RIGHT FA #18 GAUGE INTACT AND PATENT, ON OBSERVATION WITH MONITOR SR 84. ALL NEEDS ATTENDED AT THIS TIME, WILL CONTINUE TO CLOSELY MONITOR.
[2018-03-24 20:00] VITALS: BP 117/69
[2018-03-25] VITALS: BP 134/95
[2018-03-25] MEDS: ALBUTEROL FS 2.5 MG/0.5 ML VIAL.NEB NEB SCH ×4 (01:58→19:25)
[2018-03-25] MEDS: IPRATROPIUM NEB FS 0.5 MG/2.5 ML AMPUL.NEB NEB SCH ×4 (01:58→19:25)
[2018-03-25 04:00] VITALS: BP 138/87
[2018-03-25] MEDS: JEVITY 1.2 CAL 1,000 ML BOTTLE GT PRN (04:10)
[2018-03-25] MEDS: GLYCOPYRROLATE 1 MG TABLET GT SCH ×3 (05:26→20:03)
[2018-03-25] MEDS: PIPERACILLIN /TAZOBACTAM 3.375 G in IV D5W 50 ML IV SCH ×3 (05:26→17:37)
[2018-03-25 06:53] LABS: BASOPHILS % (AUTO) 0.1 % (0.0-2.0); HEMATOCRIT 35 % (39-51); HEMOGLOBIN 11.6 g/dL (13.5-17.5); LYMPHOCYTES # (AUTO) 0.6 /CMM (0.8-4.8); LYMPHOCYTES % (AUTO) 8.5 % (20.0-44.0); MEAN CORPUSCULAR HGB CONC 33 g/dl (31.0-36.0); MEAN CORPUSCULAR VOLUME 82 fL (80-96); MONOCYTES # (AUTO) 0.7 /CMM (0.1-1.30); MONOCYTES % (AUTO) 10.8 % (2.0-12.0); NEUTROPHILS # (AUTO) 5.3 /CMM (1.8-8.9); NEUTROPHILS % (AUTO) 80.6 % (43.0-81.0); PLATELET COUNT (AUTO) 267 /CMM (150-450); RDW COEFFICIENT OF VARIATION 16.3 (11.5-15.0); RED BLOOD CELL COUNT(AUTO) 4.29 MIL/uL (4.5-6.0); WHITE BLOOD COUNT (AUTO) 6.6 K/uL (4.3-11.0)
--- NOTE | 2018-03-25 07:06 | NUR ---
RN MS CLOSING NOTES PATIENT IN BED, ALERT AND ORIENTED X 0, NOTED RESPIRATIONS WILL EQUAL RISE AND FALL IN CHEST NO DISTRESS NOTED AT THIS TIME, PATIENT ON 02 VIA ,ASK 6L SATURATION 98-100 %, NOTED RESPIRATIONS AT 20 NO SECRETIONS NOTED AT THIS TIME, REMAINS COMFORTABLE . PATIENT RESPIRATORY NEEDS ATTENDED, SUCTION AND BREATHING TREATMENTS DONE ORDERED. , HEAD OF BED ELEVATED, G TUBE JEVITY 1.[address] RUNNING AT 30CC /HR AT THIS TIME M,TOLERATED WELL WITH MONITORING SECRETIONS., IVF RUNNING , IV SITE TO RIGHT FA #18 GAUGE INTACT AND PATENT, ON OBSERVATION WITH MONITOR SR 75. ALL NEEDS ATTENDED AT THIS TIME, WILL CONTINUE TO CLOSELY MONITOR AND ENDORSE TO NEXT SHIFT, PATIENT REPOSITIONED, DRESSING REMAINS INTACT.
[2018-03-25 07:30] LABS: CALCIUM, SERUM 9.1 mg/dL (8.5-10.1); CARBON DIOXIDE 36 mmol/L (21-32); CHLORIDE 106 mmol/L (98-107); CREATININE 0.7 mg/dL (0.6-1.3); GLUCOSE 130 mg/dL (74-106); SODIUM SERUM 146 mmol/L (136-145); UREA NITROGEN, BLOOD 35 mg/dL (7-18)
--- NOTE | 2018-03-25 07:54 | NUR ---
MS RN OPENING NOTE PATIENT IS ALERT, NON-VERBAL BUT OPENS EYES. NO FACIAL GRIMACING NOTED FOR PAIN. NO SOB OR DISTRESS NOTED. ON 6L SIMPLE MASK TOLERATING WELL AT THIS TIME. HAS BREATHING TX, DEEP SUCTION, AND YAUNKER SUCTION AVAILABLE. TELE MONITOR FOR OBSERVATION. AWAITING WOUND CONSULT. ON TUBE FEEDING- JEVITY 1.2 AT 30CC/HR. CONTINUOUS PULSE OX AT BEDSIDE. IV INTACT AND PATENT WITH FLUIDS RUNNING AT THIS TIME. WILL CONTINUE TO MONITOR THROUGHOUT SHIFT
[2018-03-25 08:00] VITALS: BP 110/64
[2018-03-25] MEDS: methylPREDNISolone SOD SUCC 40 MG/ML VIAL IV SCH ×2 (08:51→16:26)
[2018-03-25] MEDS: PANTOPRAZOLE 40 MG VIAL IV SCH (08:51)
[2018-03-25] MEDS: CHLORHEXIDINE GLUCONATE 15 ML UDC MM SCH ×2 (08:51→20:03)
[2018-03-25] MEDS: ENOXAPARIN SODIUM 40 MG/0.4 ML DISP.SYRIN SQ SCH (08:53)
--- NOTE | 2018-03-25 09:40 | NUR ---
MS RN NOTE MD AWARE OF POTASSIUM-3.0 AND SODIUM-146. ORDERS NOTED AND CARRIED OUT. WILL ADMINISTER MEDICATIONS. WILL CONTINUE TO MONITOR
[2018-03-25] MEDS ORDERED: FUROSEMIDE 20 MG/2 ML VIAL IV ONE (10:00)
[2018-03-25] MEDS ORDERED: POTASSIUM CHLORIDE 20 MEQ POWDER PACKET GT ONE (10:30)
--- NOTE | 2018-03-25 11:30 | NUR ---
RN NOTE TUBE FEEDING INCREASED FROM 30 CC TO 40 CC/HR. WILL RECHECK FOR RESIDUAL. HEAD OF BED ELEVATED TO 35 DEGREES.
--- NOTE | 2018-03-25 13:00 | NUR ---
RN NOTE TUBE FEEDING CHECKED FOR RESIDUAL, NONE NOTED. TOLERATING FEEDING AT 40 ML/HR.
[2018-03-25 16:00] VITALS: BP 116/70
[2018-03-25] MEDS: DOCUSATE SODIUM LIQ 100 MG/10 ML UDC GT SCH (17:37)
--- NOTE | 2018-03-25 18:38 | NUR ---
MS RN CLOSING NOTE PATIENT IS OBTUNDED, OPENS EYES AND NON-VERBAL. NO FACIAL GRIMACE NOTED FOR PAIN. NO SOB OR DISTRESS NOTED. ON 6L/MIN OF OXYGEN VIA NASAL CANNULA TOLERATING WELL WITH CONTINUOUS PULSE OX. ALL DUE MEDICATIONS GIVEN ORDERED. ALL NURSING CARE NEEDS ATTENDED TO NEEDED. CALL LIGHT WITHIN REACH AT ALL TIMES. SAFETY MEASURES IMPLEMENTED. G-TUBE SITE CLEAN AND DRY, TUBE FEEDING RUNNING AT 40 ML/HR TOLERATING WELL WITH NO RESIDUAL GOAL IS TO INCREASE TO 50 CC/HR. ELECTROLYTES REPLACED THROUGHOUT SHIFT. SUCTIONED NEEDED. NOTICED SMALL AMOUNT OF BLOOD URINE, CHARGE NURSE AND MD AWARE JUST TO MONITOR. LABS IN AM. WILL ENDORSE TO MED SPA MANAGER NURSE FOR [facility]ARR
--- NOTE | 2018-03-25 19:20 | NUR ---
MS FOURNIER OPENING NOTES: RECEIVED PT IN BED AND IS ON 6LPM VIA SIMPLE MASK. PT CONNECTED TO PULSE OX. PT IS NON-VERBAL. PT OPENS EYES AND IS OBTUNDED. PT HAS G TUBE FEEDING. NO RESIDUAL NOTED. PT ON JEVITY 1.2 AT 40ML/HR. PT HAS IV AND IS CURRENTLY BEING RAN AT [facility] AT THE MOMENT. PT ON HIGH BARCLAY'S POSITION. BED ALARM ACTIVATED. CALL LIGHT WITHIN PT'S REACH. BED KEPT IN LOW, LOCKED POSITION, AND SIDE RAILS X 2UP. WILL CONTINUE TO MONITOR PT. Addendum: 03/25/18 at 2007 by ERNESTO WRIGHT RN SCOP PATCH ON LEFT EAR.
[2018-03-25] MEDS: Potassium Chloride 20 MEQ in IV D5W 1,000 ML IV PRN (19:32)
[2018-03-25 20:00] VITALS: BP 129/73
[2018-03-26] VITALS (43 sets, daily range): BP systolic 99–143; BP diastolic 53–97
[2018-03-26] MEDS: PIPERACILLIN /TAZOBACTAM 3.375 G in IV D5W 50 ML IV SCH ×5 (00:34→23:51)
[2018-03-26] MEDS: IPRATROPIUM NEB FS 0.5 MG/2.5 ML AMPUL.NEB NEB SCH ×4 (01:47→19:47)
[2018-03-26] MEDS: ALBUTEROL FS 2.5 MG/0.5 ML VIAL.NEB NEB SCH ×4 (01:47→19:47)
[2018-03-26] MEDS: GLYCOPYRROLATE 1 MG TABLET GT SCH ×3 (04:06→20:16)
[2018-03-26] MEDS: JEVITY 1.2 CAL 1,000 ML BOTTLE GT PRN (05:01)
--- NOTE | 2018-03-26 06:32 | NUR ---
MS RN CLOSING NOTES: ALL NEEDS WERE ATTENDED AND ANTICIPATED FOR. PT KEPT CLEAN, DRY, AND COMFORTABLE. PT ON SEMI-BARCLAY'S POSITION. PT ON 6LPM VIA NC AND IS ON CONTINUOUS PULSE OX. PT ON SCD PUMPS. PT IS NON-VERBAL, BUT OPENS EYES. SCOP PATCH REMAINS ON L EAR. PT HAS G TUBE FEEDING. NO RESIDUAL NOTED. PT ON GTUBE JEVITY 1.2 AT 50ML/HR. PT HAS IV ON R FOREARM #18G AND IS BEING INFUSED WITH KCL 20MEQ IN D5W AT 50ML/HR. CALL LIGHT WITHIN PT'S REACH. BED KEPT IN LOW, LOCKED POSITION, AND SIDE RAILS X 2UP. WILL ENDORSE TO AM NURSE FOR STARR.
[2018-03-26 06:50] LABS: BASOPHILS % (AUTO) 0.3 % (0.0-2.0); EOSINOPHILS % (AUTO) 0.3 % (0.0-6.0); HEMATOCRIT 37 % (39-51); HEMOGLOBIN 12.2 g/dL (13.5-17.5); LYMPHOCYTES # (AUTO) 0.9 /CMM (0.8-4.8); LYMPHOCYTES % (AUTO) 11.1 % (20.0-44.0); MEAN CORPUSCULAR HGB CONC 33 g/dl (31.0-36.0); MEAN CORPUSCULAR VOLUME 83 fL (80-96); MONOCYTES # (AUTO) 1.2 /CMM (0.1-1.30); MONOCYTES % (AUTO) 14.6 % (2.0-12.0); NEUTROPHILS # (AUTO) 5.9 /CMM (1.8-8.9); NEUTROPHILS % (AUTO) 73.7 % (43.0-81.0); PLATELET COUNT (AUTO) 241 /CMM (150-450); RDW COEFFICIENT OF VARIATION 16.7 (11.5-15.0); RED BLOOD CELL COUNT(AUTO) 4.49 MIL/uL (4.5-6.0)
--- NOTE | 2018-03-26 07:00 | NUR ---
MS RN INITIAL INITIAL NOTES: RECEIVED PATIENT ON BED, ASLEEP, WITH HEAD OF BED ELEVATED. NOT IN ACUTE DISTRESS. PATIENT ON O2 AT 6L VIA FACE MASK SATURATING AT 100% AND IS ON CONTINUOUS PULSE OX. PATIENT ON SCD PUMPS. PATIENT ON GTUBE JEVITY 1.2 AT 40ML/HR. IV ON RIGHT FOREARM #18G. CALL LIGHT WITHIN PATIENT'S REACH. BED IN LOW, LOCKED POSITION WITH SIDERAILSX2 UP. PATIENT IN STABLE CONDITION PER INSTRUCTOR INDUSTRIAL DESIGN RN.
[2018-03-26 07:09] LABS: CALCIUM, SERUM 8.8 mg/dL (8.5-10.1); CARBON DIOXIDE 34 mmol/L (21-32); CHLORIDE 107 mmol/L (98-107); CREATININE 0.6 mg/dL (0.6-1.3); GLUCOSE 133 mg/dL (74-106); MAGNESIUM 2.4 mg/dL (1.8-2.4); SODIUM SERUM 143 mmol/L (136-145); UREA NITROGEN, BLOOD 33 mg/dL (7-18)
[2018-03-26] MEDS: CHLORHEXIDINE GLUCONATE 15 ML UDC MM SCH ×2 (08:18→20:16)
[2018-03-26] MEDS: PANTOPRAZOLE 40 MG VIAL IV SCH (08:18)
[2018-03-26] MEDS: methylPREDNISolone SOD SUCC 40 MG/ML VIAL IV SCH ×2 (08:19→17:04)
[2018-03-26] MEDS: ENOXAPARIN SODIUM 40 MG/0.4 ML DISP.SYRIN SQ SCH (08:22)
[2018-03-26] MEDS: SCOPOLAMINE HBR 1 EA PATCH.TD72 TD SCH (08:32)
--- NOTE | 2018-03-26 10:32 | NUR ---
RT NOTE LATE ENTRY. AT 0820 NT SX PT WITH NO COMPLICATIONS. RN AWARE.
--- NOTE | 2018-03-26 10:32 | NUR ---
WOUND CARE CONSULT: PT PRESENTS WITH LEFT HEEL ESCHAR, LEFT LATERAL FOOT DEEP TISSUE INJURY (INTACT), LEFT MEDIAL FOOT SCAR, RT HEEL SCAR, SACRAL AND BUTTOCK SCARRING. ALL PRESENT ON ADMISSION. LEFT TOP OF EAR ABRASION NOTED. ALL SKIN PROTECTION AND WOUND CARE RECOMMENDATIONS DISCUSSED WITH NURSING STAFF. FIRST STEP MATTRESS ORDERED. PT NOTED TO HAVE LOWER EXTREMITY [id number], MAKING OFFLOADING DIFFICULT. CURRENT TAYO SCORE IS 10. WILL SEE PRN. TIWARI IN AGREEMENT WITH PLAN OF CARE. Addendum: 03/26/18 at 1035 by GEORGE NELSON WNDNU Amended: Links added.
[2018-03-26] MEDS ORDERED: Z GUARD REMEDY 2 OZ OINT TP PRN (11:00)
--- NOTE | 2018-03-26 11:29 | NUR ---
ms rn notes Paged Dr. Nice regarding patient condition and called back and spoke to Rebecca charge nurse and per MD patient needs to be transfer to ICU for possible intubation, and MD spoke to son in regards with the condition and code status and per son is an old fashion and doesn't want to change code status, patient to be in full code status at the moment. All orders carried out and noted. Charge nurse informed domestic housekeeper for bed in ICU for this patient.
--- NOTE | 2018-03-26 11:45 | NUR ---
ms rn notes Transferred patient to ICU room 254 as MD ordered for higher level of care. Connected patient to monitor during transfer, IV and feeding tube infusing well. Report given to ICU nurse Jackelyn and made aware.
--- NOTE | 2018-03-26 12:00 | NUR ---
GIFT BASKET PACKER PT EMERGENTLY TRANSFERRED TO ICU FROM M/S BY BED. REPORT RECEIVED FROM 3W RN. PT WAS SENT FOR INCREASING RESPIRATORY DISTRESS. RECEIVED PT WITH RESP RATE 20'S, PLACED ON 6L SIMPLE MAX WITH SPO2 100%. HR 90'S. PERIPHERAL PULSES PALPABLE. PT NONVERBAL. SPOKE WITH DR DODD BY PHONE. WILL CONTINUE TO MONITOR.
[2018-03-26] MEDS: BACITRACIN/POLYMYXIN B 15 GM TUBE TP SCH (12:35)
[2018-03-26] MEDS: Z GUARD REMEDY 2 OZ OINT TP SCH (12:36)
--- NOTE | 2018-03-26 14:00 | NUR ---
AMF MECHANIC SUCTIONED BY RT. NO CHANGE IN CONDITION. DR DODD CAME IN TO SEE PT.
[2018-03-26] MEDS: Potassium Chloride 20 MEQ in IV D5W 1,000 ML IV PRN (16:00)
--- NOTE | 2018-03-26 16:00 | NUR ---
ETCH OPERATOR SEMICONDUCTOR WAFERS NO CHANGE IN PT CONDITION. O2 TITRATED TO RESPONSE. BROTHER CAME IN TO SEE PT. REITERATED THAT HE WANTED EVERYTHING DONE.
[2018-03-26 16:20] LABS: ABG BASE EXCESS 9.7 mmol/L; ABG OXYGEN SATURATION 95.6 % (92.0-98.5); ABG PCO2 50.3 mmHg (35.0-45.0); ABG PH 7.461 (7.350-7.450); ABG PO2 83.3 mmHg (75.0-100.0); COHb 0.3 % (0.5-1.5); MetHb 0.4 % (0.0-1.5); O2Hb 94.9 % (94.0-97.0); SITE, ABG Right Radial
--- NOTE | 2018-03-26 16:20 | NUR ---
RT NOTE NASOTRACHEAL SUCTION PERFORMED. MODERATE THICK CÁRDENAS SECRETIONS NOTED. ORAL SUCTION DONE. PATIENT STABLE ON 32% NASAL CANNULA PER ABG RESULTS. NURSE, ALVA IS AWARE.
[2018-03-26] MEDS: DOCUSATE SODIUM LIQ 100 MG/10 ML UDC GT SCH (17:35)
--- NOTE | 2018-03-26 18:00 | NUR ---
DIRECTOR OF SOCIAL MEDIA MARKETING PT SUCTIONED NASOTRACHEALLY. TITRATED FIO2. COPIOUS AMOUNT OF WHITE SPUTUM SUCTIONED. DIAPER SOILED, CHANGED.
--- NOTE | 2018-03-26 20:00 | NUR ---
AUTOMOBILE PARTS ASSEMBLER - NOTES - RECEIVED PT IN BED, FOR RESPIRATORY DISTRESS. PT IS NONVERBAL AND HAS ADVANCED DEMENTIA. PT IS ON 6L SIMPLE MASK, PT SOUNDS CONGESTED, REQUIRING FREQUENT SUCTIONING. PT HAS PEG TUBE WITH JEVITY @ 50 ML/HR TOLERATING WELL 5 ML RESIDUALS, ON DIAPER, VOIDING REGULARLY. PT HAS SOME SKIN ISSUES NOTED. PT HAS R FOREARM 18G AND R AC 20G IV, PATENT WITH TKO. WILL CONTINUE TO MONITOR
--- NOTE | 2018-03-26 20:43 | NUR ---
PT NT SX'D AND OBTAINED MOD AMT OF THIN WHITE SECRETIONS. PT IS ON SM 6L O2 SAT 98%. PT RECEIVING Q6 BREATHING TX. WILL CONTINUE TO MONITOR. Addendum: 03/26/18 at 2044 by LAURENT ERIC RT Amended: Links added.
[2018-03-27] VITALS (47 sets, daily range): BP systolic 72–155; BP diastolic 46–108
[2018-03-27] MEDS: IPRATROPIUM NEB FS 0.5 MG/2.5 ML AMPUL.NEB NEB SCH ×4 (01:08→19:10)
[2018-03-27] MEDS: ALBUTEROL FS 2.5 MG/0.5 ML VIAL.NEB NEB SCH ×4 (01:08→19:10)
[2018-03-27] MEDS: GLYCOPYRROLATE 1 MG TABLET GT SCH ×3 (04:13→21:21)
[2018-03-27] MEDS: JEVITY 1.2 CAL 1,000 ML BOTTLE GT PRN (04:13)
[2018-03-27] MEDS: PIPERACILLIN /TAZOBACTAM 3.375 G in IV D5W 50 ML IV SCH ×4 (05:28→23:10)
--- NOTE | 2018-03-27 07:30 | NUR ---
RECEIVED PATIENT AWAKE NON VERBAL. ON 6LPM MASK SATURATING 100%. PATIENT IV SITES CLEAN DRY AND INTACT. IVF RUNNING ORDERED. TUBE FEEDING ORDERED WITH NO RESIDUAL NOTED. PATIENT IS TACHYPNEIC AND GURGLING BREATHS. PATIENT DEEP SUCTIONED WITH MINIMAL MUCOUS. WILL TITRATE TOLERATED. ASPIRATION PRECAUTIONS IN PLACE. SAFETY PRECAUTIONS IN PLACE. WILL ROUND PRN
[2018-03-27] MEDS: Z GUARD REMEDY 2 OZ OINT TP SCH (09:34)
[2018-03-27] MEDS: PANTOPRAZOLE 40 MG VIAL IV SCH (09:34)
[2018-03-27] MEDS: methylPREDNISolone SOD SUCC 40 MG/ML VIAL IV SCH ×2 (09:34→16:00)
[2018-03-27] MEDS: CHLORHEXIDINE GLUCONATE 15 ML UDC MM SCH ×2 (09:34→21:21)
[2018-03-27] MEDS: ENOXAPARIN SODIUM 40 MG/0.4 ML DISP.SYRIN SQ SCH (09:56)
[2018-03-27] MEDS: BACITRACIN/POLYMYXIN B 15 GM TUBE TP SCH (09:58)
[2018-03-27] MEDS: Potassium Chloride 20 MEQ in IV D5W 1,000 ML IV PRN (12:24)
[2018-03-27] MEDS: DOCUSATE SODIUM LIQ 100 MG/10 ML UDC GT SCH (17:12)
--- NOTE | 2018-03-27 18:35 | NUR ---
AWAKE NON VERBAL. AT TIMES WILL LISTEN TO CUES TO OPEN MOUTH AND STICK TONGUE OUT. TOLERATING NASAL CANNULA 4LPM. PATIENT IV SITES CLEAN DRY AND INTACT. IVF RUNNING ORDERED. TUBE FEEDING ORDERED WITH NO RESIDUAL NOTED. PATIENT IS TACHYPNEIC AND GURGLING BREATHS. PATIENT DEEP SUCTIONED WITH MINIMAL MUCOUS. ASPIRATION PRECAUTIONS IN PLACE. SAFETY PRECAUTIONS IN PLACE. WILL ENDORSE CARE TO RN FOR STARR
--- NOTE | 2018-03-27 20:12 | NUR ---
received pt from day shift, alert, does not follows commands, constructed, SR, on 4L 02, sat well, deep suctioned, lungs congested, diaper on, GT to feeding tolerates well, v/s stable, no pain, pt turned and repositioned.
[2018-03-28] VITALS (36 sets, daily range): BP systolic 99–156; BP diastolic 36–94
--- NOTE | 2018-03-28 | NUR ---
pt is resting in the bed, v/s stable, no pain, pt turned and repositioned q2hrs.
[2018-03-28] MEDS: ALBUTEROL FS 2.5 MG/0.5 ML VIAL.NEB NEB SCH ×4 (01:25→19:24)
[2018-03-28] MEDS: IPRATROPIUM NEB FS 0.5 MG/2.5 ML AMPUL.NEB NEB SCH ×4 (01:25→19:24)
--- NOTE | 2018-03-28 04:12 | NUR ---
pt is resting in the bed, disoriented, does not follow commands, SR, on 3L 02, sat well, tolerates feeding, v/s stable, no pain, pt cleaned, changed and repositioned q2hrs.
[2018-03-28 04:57] LABS: BASOPHILS % (AUTO) 0.5 % (0.0-2.0); EOSINOPHILS % (AUTO) 0.3 % (0.0-6.0); HEMATOCRIT 42 % (39-51); HEMOGLOBIN 13.6 g/dL (13.5-17.5); LYMPHOCYTES # (AUTO) 1.1 /CMM (0.8-4.8); LYMPHOCYTES % (AUTO) 10.5 % (20.0-44.0); MEAN CORPUSCULAR HGB CONC 33 g/dl (31.0-36.0); MEAN CORPUSCULAR VOLUME 82 fL (80-96); MONOCYTES # (AUTO) 0.5 /CMM (0.1-1.30); NEUTROPHILS # (AUTO) 8.4 /CMM (1.8-8.9); NEUTROPHILS % (AUTO) 83.7 % (43.0-81.0); PLATELET COUNT (AUTO) 264 /CMM (150-450); RDW COEFFICIENT OF VARIATION 15.9 (11.5-15.0); RED BLOOD CELL COUNT(AUTO) 5.07 MIL/uL (4.5-6.0); WHITE BLOOD COUNT (AUTO) 10.1 K/uL (4.3-11.0)
[2018-03-28] MEDS: PIPERACILLIN /TAZOBACTAM 3.375 G in IV D5W 50 ML IV SCH ×4 (05:03→23:30)
[2018-03-28] MEDS: GLYCOPYRROLATE 1 MG TABLET GT SCH ×3 (05:04→21:35)
[2018-03-28 05:26] LABS: CALCIUM, SERUM 8.9 mg/dL (8.5-10.1); CARBON DIOXIDE 34 mmol/L (21-32); CHLORIDE 98 mmol/L (98-107); CREATININE 0.6 mg/dL (0.6-1.3); GLUCOSE 116 mg/dL (74-106); MAGNESIUM 2.2 mg/dL (1.8-2.4); POTASSIUM 5.8 mmol/L (3.5-5.1); SODIUM SERUM 135 mmol/L (136-145); UREA NITROGEN, BLOOD 18 mg/dL (7-18)
[2018-03-28] MEDS: PANTOPRAZOLE 40 MG VIAL IV SCH (08:10)
[2018-03-28] MEDS: methylPREDNISolone SOD SUCC 40 MG/ML VIAL IV SCH ×2 (08:10→17:13)
[2018-03-28] MEDS: Z GUARD REMEDY 2 OZ OINT TP SCH (08:10)
[2018-03-28] MEDS: CHLORHEXIDINE GLUCONATE 15 ML UDC MM SCH ×2 (08:10→21:34)
[2018-03-28] MEDS: BACITRACIN/POLYMYXIN B 15 GM TUBE TP SCH (08:11)
[2018-03-28] MEDS: ENOXAPARIN SODIUM 40 MG/0.4 ML DISP.SYRIN SQ SCH (08:14)
--- NOTE | 2018-03-28 10:09 | NUR ---
SENIOR STAFF SPECIALIZED EMPLOYMENT NOTE 0720: Received patient awake, but does not follow commands. With 3LPM of O2 via NC placed in mouth due to mouth breather. SR 70's on the monitor. PIVs intact. On IVF infusing as ordered. Turned off IVF for high K. GT intact, feeding tolerated, kept HOB elevated. 0900: S/E by Dr. Nice, with order to may transfer to MIN, made CN aware. 1000: No any significant changes noted at this time. Tolerated 3LPM of O2 via NC placed on mouth secondary to mouth breather. Sat 100%. Still noted with thick secretions, able to cough, suctioned mouth.
[2018-03-28] MEDS ORDERED: SODIUM POLYSTYRENE SULFONATE 15 G/60 ML BOTTLE PO ONE (16:00)
[2018-03-28] MEDS: DOCUSATE SODIUM LIQ 100 MG/10 ML UDC GT SCH (17:13)
--- NOTE | 2018-03-28 20:30 | NUR ---
received pt from day shift, alert, disoriented, does not follows commands, SR, on 3L 02, sat well, lungs partially congested, deep suctioned, no edema, GT to feeding, tolerates well, diaper on, v/s stable, no pain, pt turned and repositioned.
[2018-03-29] VITALS (32 sets, daily range): BP systolic 102–145; BP diastolic 61–101
--- NOTE | 2018-03-29 | NUR ---
pt is resting in the bed, v/s stable, no pain, pt turned and repositioned q2hrs.
[2018-03-29] MEDS: ALBUTEROL FS 2.5 MG/0.5 ML VIAL.NEB NEB SCH ×4 (01:38→20:14)
[2018-03-29] MEDS: IPRATROPIUM NEB FS 0.5 MG/2.5 ML AMPUL.NEB NEB SCH ×4 (01:38→20:14)
--- NOTE | 2018-03-29 04:18 | NUR ---
pt is resting in the bed, no acute distress overnight, SR, v/s stable, no pain, tolerates feeding, pt cleaned, changed and repositioned q2hrs.
[2018-03-29 04:47] LABS: HEMATOCRIT 44 % (39-51); HEMOGLOBIN 14.1 g/dL (13.5-17.5); LYMPHOCYTES # (AUTO) 0.5 /CMM (0.8-4.8); MEAN CORPUSCULAR HGB CONC 33 g/dl (31.0-36.0); MEAN CORPUSCULAR VOLUME 82 fL (80-96); MONOCYTES # (AUTO) 0.5 /CMM (0.1-1.30); NEUTROPHILS # (AUTO) 7.5 /CMM (1.8-8.9); PLATELET COUNT (AUTO) 257 /CMM (150-450); RDW COEFFICIENT OF VARIATION 16.2 (11.5-15.0); WHITE BLOOD COUNT (AUTO) 8.5 K/uL (4.3-11.0)
[2018-03-29 04:48] LABS: CALCIUM, SERUM 9.1 mg/dL (8.5-10.1); CARBON DIOXIDE 34 mmol/L (21-32); CHLORIDE 100 mmol/L (98-107); CREATININE 0.5 mg/dL (0.6-1.3); GLUCOSE 117 mg/dL (74-106); MAGNESIUM 2.1 mg/dL (1.8-2.4); POTASSIUM 4.6 mmol/L (3.5-5.1); SODIUM SERUM 137 mmol/L (136-145); UREA NITROGEN, BLOOD 19 mg/dL (7-18)
[2018-03-29] MEDS: GLYCOPYRROLATE 1 MG TABLET GT SCH ×3 (04:51→21:04)
[2018-03-29] MEDS: PIPERACILLIN /TAZOBACTAM 3.375 G in IV D5W 50 ML IV SCH ×4 (05:23→23:52)
[2018-03-29] MEDS: methylPREDNISolone SOD SUCC 40 MG/ML VIAL IV SCH ×2 (08:10→17:59)
[2018-03-29] MEDS: PANTOPRAZOLE 40 MG VIAL IV SCH (08:10)
[2018-03-29] MEDS: CHLORHEXIDINE GLUCONATE 15 ML UDC MM SCH ×2 (08:10→21:04)
[2018-03-29] MEDS: Z GUARD REMEDY 2 OZ OINT TP SCH (08:11)
[2018-03-29] MEDS: BACITRACIN/POLYMYXIN B 15 GM TUBE TP SCH (08:11)
[2018-03-29] MEDS: ENOXAPARIN SODIUM 40 MG/0.4 ML DISP.SYRIN SQ SCH (08:12)
[2018-03-29] MEDS: SCOPOLAMINE HBR 1 EA PATCH.TD72 TD SCH (08:27)
--- NOTE | 2018-03-29 13:43 | NUR ---
GUNITE NOZZLE OPERATOR NOTE 0720: Received patient awake, opens eyes but does not follow commands. With NC on 3LPM of O2., placed in the mouth for mouth breather. With GT intact, feeding tolerated well. No residuals noted, kept HOB elevated. PIVs intact. Noted with coughing, able to expectorate thick light greenish sputum. Noted with crackles. SR 80's on the monitor. Turned and repositioned q2. 0830: S/E by Dr. Nice, with orders of labs in am. 0930: S/E by Dr. Sanchez, no new order at this time. 1330: No any significant changes noted. Kept clean, warm and dry. Needs attended. VSS.
[2018-03-29] MEDS: DOCUSATE SODIUM LIQ 100 MG/10 ML UDC GT SCH (17:53)
[2018-03-29] MEDS: JEVITY 1.2 CAL 1,000 ML BOTTLE GT PRN (19:56)
[2018-03-30] VITALS (24 sets, daily range): BP systolic 92–135; BP diastolic 50–83
--- NOTE | 2018-03-30 | NUR ---
HAND ROLLER NOTES Remains stable,not in any distress but requires very frequent suctioning,patient has a lot of secretions.Patient able to cough ghood but unable to bring up secretions(needs to be suctioned) Skin care done,incontinent of urine and stool.
[2018-03-30] MEDS: IPRATROPIUM NEB FS 0.5 MG/2.5 ML AMPUL.NEB NEB SCH ×4 (01:54→20:08)
[2018-03-30] MEDS: ALBUTEROL HALF STRENGTH 1.25 MG/3 ML VIAL.NEB NEB PRN (01:54)
[2018-03-30] MEDS: ALBUTEROL FS 2.5 MG/0.5 ML VIAL.NEB NEB SCH ×4 (01:58→20:08)
[2018-03-30 04:48] LABS: BASOPHILS % (AUTO) 0.1 % (0.0-2.0); HEMATOCRIT 43 % (39-51); HEMOGLOBIN 14.1 g/dL (13.5-17.5); LYMPHOCYTES # (AUTO) 0.6 /CMM (0.8-4.8); LYMPHOCYTES % (AUTO) 5.8 % (20.0-44.0); MEAN CORPUSCULAR HGB CONC 33 g/dl (31.0-36.0); MEAN CORPUSCULAR VOLUME 82 fL (80-96); MONOCYTES # (AUTO) 0.6 /CMM (0.1-1.30); MONOCYTES % (AUTO) 6.2 % (2.0-12.0); NEUTROPHILS # (AUTO) 8.7 /CMM (1.8-8.9); NEUTROPHILS % (AUTO) 87.9 % (43.0-81.0); PLATELET COUNT (AUTO) 226 /CMM (150-450); RDW COEFFICIENT OF VARIATION 16.4 (11.5-15.0); RED BLOOD CELL COUNT(AUTO) 5.23 MIL/uL (4.5-6.0); WHITE BLOOD COUNT (AUTO) 9.9 K/uL (4.3-11.0)
[2018-03-30 05:17] LABS: CARBON DIOXIDE 29 mmol/L (21-32); CHLORIDE 98 mmol/L (98-107); CREATININE 0.6 mg/dL (0.6-1.3); GLUCOSE 145 mg/dL (74-106); MAGNESIUM 2.1 mg/dL (1.8-2.4); POTASSIUM 4.7 mmol/L (3.5-5.1); SODIUM SERUM 134 mmol/L (136-145); UREA NITROGEN, BLOOD 22 mg/dL (7-18)
[2018-03-30] MEDS: GLYCOPYRROLATE 1 MG TABLET GT SCH ×3 (05:44→20:58)
[2018-03-30] MEDS: PIPERACILLIN /TAZOBACTAM 3.375 G in IV D5W 50 ML IV SCH ×4 (05:44→23:45)
--- NOTE | 2018-03-30 06:00 | NUR ---
TIRE BUILDER NOTES Am care done,incontinent of urine,no BM.Still needing very frequent suctioning,continue Aspiration precaution,maintain HOB elevated.Not in any distress but gets tachypneic when coughing a lot. Remains non verbal ,awake but not following commands,contracted extremities,always resisting when moving or turning.
--- NOTE | 2018-03-30 07:00 | NUR ---
RN NOTES RECEIVED PT ON BED, ALERT, EYES ARE OPEN, DOES NOTE FOLLOW ANY COMMAND, ON 3L O2 N.C , O2 SAT 99%, ORANL SUCTIONING DONE, LARGE AMOUNT OF THICK SECRETION NOTED, PT IS MOUTH BREATHER, ON TELE HR IN 90'S , SR , TF GIVITEY AT 60CC/ HR RUNNING VIA PEG TUBE, TOLERATING WELL , NO RESIDUAL NOTED, HOB ELEVATED, R FA IV AND R AC IV SITES ,CDI, SR UP x3, CALL LIGHT WITHIN EASY REACH, BED LOCKED AND IN LOWEST POSITION , CONTINUE TO MONITOR PT CLOSELY .
--- NOTE | 2018-03-30 07:05 | NUR ---
REPORT GIVEN TO JOSE E FOURNIER
[2018-03-30] MEDS: CHLORHEXIDINE GLUCONATE 15 ML UDC MM SCH ×2 (08:10→20:58)
[2018-03-30] MEDS: methylPREDNISolone SOD SUCC 40 MG/ML VIAL IV SCH ×2 (08:10→16:01)
[2018-03-30] MEDS: ENOXAPARIN SODIUM 40 MG/0.4 ML DISP.SYRIN SQ SCH (08:12)
[2018-03-30] MEDS: PANTOPRAZOLE 40 MG VIAL IV SCH (08:13)
[2018-03-30] MEDS: Z GUARD REMEDY 2 OZ OINT TP SCH (08:14)
[2018-03-30] MEDS: BACITRACIN/POLYMYXIN B 15 GM TUBE TP SCH (08:14)
--- NOTE | 2018-03-30 12:00 | NUR ---
RN NOTES ORAL AND NT SUCTIONING DONE , LARGE AMOUNT OF SECRETION NOTED, O2 SAT 98%, CONTINUE TO MONITOR.
--- NOTE | 2018-03-30 16:00 | NUR ---
RN NOTES KATY TF WELL, VSS STABLE CONTINUE TO MONITOR .
[2018-03-30] MEDS: JEVITY 1.2 CAL 1,000 ML BOTTLE GT PRN (17:05)
[2018-03-30] MEDS: DOCUSATE SODIUM LIQ 100 MG/10 ML UDC GT SCH (17:06)
--- NOTE | 2018-03-30 18:24 | NUR ---
RN NOTES PT STILL HAS BEEN HAVING LARGE AMOUNT OF ORAL AND NASAL SECRETION ON THIS SHIFT , NT AND ORAL SUCTIONING DONE NEEDED, VSS STABLE , TOLERATING TF WELL, NO RESIDUAL NOTED, SR UP x3, CALL LIGHT WITHIN EASY REACH, BED LOCKED AND IN LOWEST POSITION, WILL ENDORSE TO CARE ATTENDANT NURSE FOR STARR .
--- NOTE | 2018-03-30 19:00 | NUR ---
ELECTRON BEAM MACHINE WELDER SETTER NOTES Received patient alert,non verbal but responsive,moans and groans,does not follow commands,contracted extremities.O2 via NC 3L/min ,breathing regular with periods of tachypnea ,coughing a lot with copious amount of secretions requiring very frequent suctioning.Aspiration precaution observed,maintain on high fisher's position.On going tube feeding via G tube.Comfort care done.Will closely monitor respiratory status,adjust O2 as needed.
[2018-03-31] VITALS (30 sets, daily range): BP systolic 51–151; BP diastolic 24–98
--- NOTE | 2018-03-31 | NUR ---
DYE HOUSE SUPERVISOR NOTES Status unchanged,alerrt,still awale,coughing a lot ,still with copious amount of secretions requiring very frequent suctioning,tolerating well .comfort care done,needs attended,
[2018-03-31] MEDS: ALBUTEROL FS 2.5 MG/0.5 ML VIAL.NEB NEB SCH ×4 (01:50→19:24)
[2018-03-31] MEDS: IPRATROPIUM NEB FS 0.5 MG/2.5 ML AMPUL.NEB NEB SCH ×4 (01:50→19:24)
[2018-03-31] MEDS: GLYCOPYRROLATE 1 MG TABLET GT SCH ×3 (04:28→20:26)
[2018-03-31] MEDS: PIPERACILLIN /TAZOBACTAM 3.375 G in IV D5W 50 ML IV SCH ×4 (05:51→23:28)
--- NOTE | 2018-03-31 06:00 | NUR ---
GAS SINGER NOTES Status unchanged,stable,still coughing very frequently needing suctioning and needs aggressive pulmonary toileting.Awake but non verabal,not following commands,not in any respiratory distress.
--- NOTE | 2018-03-31 07:00 | NUR ---
OPERATIONS ANALYST NOTES Report given to Ludwig FOURNIER
--- NOTE | 2018-03-31 07:41 | NUR ---
RECEIVED PATIENT AWAKE NON VERBAL. SATURATING WELL ON 3LPM NC. PATIENT IV SITES CLEAN DRY AND INTACT. TUBE FEEDING ORDERED WITH NO RESIDUAL NOTED. PATIENT IS TACHYPNEIC AND GURGLING BREATHS. PATIENT DEEP SUCTIONED PER ORDER BY RT AT BEDSIDE. ASPIRATION PRECAUTIONS IN PLACE. SAFETY PRECAUTIONS IN PLACE. WILL ROUND PRN
[2018-03-31] MEDS: methylPREDNISolone SOD SUCC 40 MG/ML VIAL IV SCH ×2 (08:00→16:05)
[2018-03-31] MEDS: Z GUARD REMEDY 2 OZ OINT TP SCH (08:00)
[2018-03-31] MEDS: PANTOPRAZOLE 40 MG VIAL IV SCH (08:00)
[2018-03-31] MEDS: BACITRACIN/POLYMYXIN B 15 GM TUBE TP SCH (08:00)
--- NOTE | 2018-03-31 08:00 | NUR ---
PATIENT DEEP SUCTIONED BY RT. TOLERATED WELL.
[2018-03-31] MEDS: CHLORHEXIDINE GLUCONATE 15 ML UDC MM SCH ×2 (08:01→20:26)
[2018-03-31] MEDS: ENOXAPARIN SODIUM 40 MG/0.4 ML DISP.SYRIN SQ SCH (08:05)
[2018-03-31 08:25] LABS: BASOPHILS % (AUTO) 0.1 % (0.0-2.0); EOSINOPHILS % (AUTO) 0.3 % (0.0-6.0); HEMATOCRIT 39 % (39-51); HEMOGLOBIN 13.3 g/dL (13.5-17.5); LYMPHOCYTES # (AUTO) 1.1 /CMM (0.8-4.8); LYMPHOCYTES % (AUTO) 9.7 % (20.0-44.0); MEAN CORPUSCULAR HGB CONC 34 g/dl (31.0-36.0); MEAN CORPUSCULAR VOLUME 82 fL (80-96); MONOCYTES # (AUTO) 0.6 /CMM (0.1-1.30); MONOCYTES % (AUTO) 5.7 % (2.0-12.0); NEUTROPHILS # (AUTO) 9.3 /CMM (1.8-8.9); NEUTROPHILS % (AUTO) 84.2 % (43.0-81.0); PLATELET COUNT (AUTO) 214 /CMM (150-450); RDW COEFFICIENT OF VARIATION 16.2 (11.5-15.0); RED BLOOD CELL COUNT(AUTO) 4.84 MIL/uL (4.5-6.0); WHITE BLOOD COUNT (AUTO) 11.1 K/uL (4.3-11.0)
[2018-03-31 08:46] LABS: CALCIUM, SERUM 8.5 mg/dL (8.5-10.1); CARBON DIOXIDE 34 mmol/L (21-32); CHLORIDE 101 mmol/L (98-107); CREATININE 0.7 mg/dL (0.6-1.3); GLUCOSE 109 mg/dL (74-106); PHOSPHORUS 2.7 mg/dL (2.5-4.9); POTASSIUM 3.7 mmol/L (3.5-5.1); SODIUM SERUM 139 mmol/L (136-145); UREA NITROGEN, BLOOD 22 mg/dL (7-18)
--- NOTE | 2018-03-31 09:01 | NUR ---
NO WOUND PRESENT ON LEFT EAR Addendum: 03/31/18 at 0902 by GABO HOLCOMB RN Amended: Links added.
--- NOTE | 2018-03-31 09:15 | NUR ---
DR DODD AT BEDSIDE. UPDATED ON PATIENT CONDITION, LABS, VS. PATIENT CONTINUES TO REQUIRE DEEP SUCTIONING. PATIENT ATTEMPTING TO SWALLOW SECRETIONS AT THIS TIME.
--- NOTE | 2018-03-31 13:47 | NUR ---
PATIENT DEEP SUCTIONED BY RT. TOLERATED WELL.
--- NOTE | 2018-03-31 15:36 | NUR ---
PATIENT NODS IN UNDERSTANDING. WHEN ASKED TO LIFT ARM TO ASSIST WITH CLEANING HE RESPONDS. WHEN ASKED IF HE WANTS A BLANKET NODS YES.
--- NOTE | 2018-03-31 16:14 | NUR ---
MONITOR BP SHOWING 50'S SBP. MANUAL IS 116/78. NEW BLOOD PRESSURE CUFF APPLIED NOW SHOWING 110/72
[2018-03-31] MEDS: DOCUSATE SODIUM LIQ 100 MG/10 ML UDC GT SCH (17:00)
[2018-03-31] MEDS: JEVITY 1.2 CAL 1,000 ML BOTTLE GT PRN (17:25)
--- NOTE | 2018-03-31 18:39 | NUR ---
ALL DUE MEDS GIVEN AND ALL NEEDS ASSESSED. PATIENT FLACC 0. DEEP SUCTIONED 3 TIMES TODAY. COUGHING REFLEX MORE PRONOUNCED TODAY. TOLERATING TUBE FEEDING. PER DR TASNEEM MCKNIGHT CONDOM CATH PLACED. SAFETY PRECAUTIONS IN PLACE. ASPIRATION PRECAUTIONS IN PLACE. WILL ENDORSE CARE TO RN FOR STARR.
--- NOTE | 2018-03-31 20:11 | NUR ---
received pt from day shift, alert, disoriented, does not follow commands, SR, on 3L 02, sat OK, lungs diminished/congested, no edema, deep suctioned, GT to feeding, tolerates well, condom cath on, v/s stable, no pain, pt turned and repositioned.
[2018-04-01] VITALS (25 sets, daily range): BP systolic 110–163; BP diastolic 55–118
--- NOTE | 2018-04-01 00:22 | NUR ---
pt is resting in the bed, v/s stable, no pain, pt turned and repositioned q2hrs.
[2018-04-01] MEDS: IPRATROPIUM NEB FS 0.5 MG/2.5 ML AMPUL.NEB NEB SCH ×4 (01:10→19:25)
[2018-04-01] MEDS: ALBUTEROL FS 2.5 MG/0.5 ML VIAL.NEB NEB SCH ×4 (01:10→19:25)
--- NOTE | 2018-04-01 04:14 | NUR ---
pt is resting in the bed, no acute distress overnight, SR, sat well, suction multiple times, tolerates feeding, v/s stable, no pain, pt cleaned, changed and repositioned q2hrs.
[2018-04-01] MEDS: GLYCOPYRROLATE 1 MG TABLET GT SCH ×3 (04:59→20:50)
[2018-04-01] MEDS: PIPERACILLIN /TAZOBACTAM 3.375 G in IV D5W 50 ML IV SCH (05:03)
[2018-04-01 05:16] LABS: BASOPHILS % (AUTO) 0.2 % (0.0-2.0); EOSINOPHILS % (AUTO) 0.1 % (0.0-6.0); HEMATOCRIT 41 % (39-51); HEMOGLOBIN 13.3 g/dL (13.5-17.5); LYMPHOCYTES # (AUTO) 0.8 /CMM (0.8-4.8); LYMPHOCYTES % (AUTO) 7.2 % (20.0-44.0); MEAN CORPUSCULAR HGB CONC 33 g/dl (31.0-36.0); MEAN CORPUSCULAR VOLUME 82 fL (80-96); MONOCYTES # (AUTO) 0.6 /CMM (0.1-1.30); MONOCYTES % (AUTO) 6.1 % (2.0-12.0); NEUTROPHILS # (AUTO) 9.2 /CMM (1.8-8.9); NEUTROPHILS % (AUTO) 86.4 % (43.0-81.0); PLATELET COUNT (AUTO) 235 /CMM (150-450); RDW COEFFICIENT OF VARIATION 16.8 (11.5-15.0); RED BLOOD CELL COUNT(AUTO) 4.99 MIL/uL (4.5-6.0); WHITE BLOOD COUNT (AUTO) 10.6 K/uL (4.3-11.0)
[2018-04-01 05:41] LABS: CARBON DIOXIDE 29 mmol/L (21-32); CHLORIDE 102 mmol/L (98-107); CREATININE 0.6 mg/dL (0.6-1.3); GLUCOSE 96 mg/dL (74-106); MAGNESIUM 2.2 mg/dL (1.8-2.4); PHOSPHORUS 2.9 mg/dL (2.5-4.9); POTASSIUM 3.9 mmol/L (3.5-5.1); SODIUM SERUM 138 mmol/L (136-145); UREA NITROGEN, BLOOD 23 mg/dL (7-18)
--- NOTE | 2018-04-01 07:51 | NUR ---
INITIAL BREAKFAST HOST NOTE RCVD PT WITH EYES OPEN, UNABLE TO FOLLOW COMMANDS. SR ON TELE. TOLERATING O2 VIA NC. PEG PLACEMENT VERIFIED BY AUSCULTATION/ASPIRATION. NO RESIDUAL OBTAINED. IV SITES C/D/I/PATENT. NO S/O INFILTRATION/PHLEBITIS OBSERVED. WILL CONTINUE TO MONITOR PT FOR SAFETY AND COMFORT. BED IN LOW AND LOCKED POSITION. PT UNABLE TO CLEAR SECRETIONS, PT WAS DEEP SUCTIONED WITH WHITE THICK SECRETIONS OBTAINED.
[2018-04-01] MEDS: methylPREDNISolone SOD SUCC 40 MG/ML VIAL IV SCH ×2 (08:31→17:22)
[2018-04-01] MEDS: CHLORHEXIDINE GLUCONATE 15 ML UDC MM SCH ×2 (08:31→20:50)
[2018-04-01] MEDS: PANTOPRAZOLE 40 MG VIAL IV SCH (08:31)
[2018-04-01] MEDS: BACITRACIN/POLYMYXIN B 15 GM TUBE TP SCH (08:32)
[2018-04-01] MEDS: ENOXAPARIN SODIUM 40 MG/0.4 ML DISP.SYRIN SQ SCH (08:32)
[2018-04-01] MEDS: Z GUARD REMEDY 2 OZ OINT TP SCH (08:32)
[2018-04-01] MEDS: SCOPOLAMINE HBR 1 EA PATCH.TD72 TD SCH (09:18)
--- NOTE | 2018-04-01 13:46 | NUR ---
TALENT MANAGEMENT MANAGER NOTE PT HAD LARGE BM, COMPLETE BATH GIVEN. WILL CONTINUE TO MONITOR.
[2018-04-01] MEDS: DOCUSATE SODIUM LIQ 100 MG/10 ML UDC GT SCH (17:22)
--- NOTE | 2018-04-01 18:29 | NUR ---
SHERIFFS DETECTIVE NOTE PT REMAINS STABLE, FREQUENT DEEP SUCTIONING THROUGHOUT SHIFT. SR ON TELE. TOLERATING O2 VIA NC AND TUBE FEEDING VIA PEG. IV SITES C/D/I/PATENT. NO S/O INFILTRATION/PHLEBITIS OBSERVED UPON FLUSHING. PT'S CARE WILL BE ENDORSED TO ATTENDANT SELF SERVICE STORE RN FOR CONTINUITY OF CARE. BED IN LOW AND LOCKED POSITION.
--- NOTE | 2018-04-01 19:46 | NUR ---
SAS PROGRAMMER REMOTE OPENING NOTES RECEIVED REPORT FROM RICARDO FOURNIER. PATIENT A/A/O X1, RESPONSIVE TO TACTILE STIMULI & OPEN/CLOSES EYES SPONTANEOUSLY. UNABLE TO MAKE NEEDS KNOWN. BREATHING EVEN & UNLABORED, TOLERATING O2 @ 3LPM VIA NC BUT CURRENTLY IN MOUTH D/T PATIENT IS A MOUTH BREATHER. SUCTIONED W/ THICK, WHITE SECRETIONS NOTED. ON TELE W/ SINUS RHYTHM, HR 86. NO RESPIRATORY OR CARDIAC DISTRESS NOTED @ THIS TIME. LEFT AC IV #20 & LEFT FA IV #20 INTACT & PATENT W/ DRESSING CDI, SALINE LOCKED. G-TUBE FLUSHING WELL W/ GTF JEVITY @ 60ML/HR. NO RESIDUAL NOTED. NO S/S OF PAIN OR DISCOMFORT @ THIS TIME. SAFETY MEASURES IN PLACE & HOB ELEVATED FOR ASPIRATION PRECAUTION. TURNED & REPOSITIONED FOR COMFORT. WILL CONTINUE TO MONITOR CLOSELY.
[2018-04-02] VITALS (15 sets, daily range): BP systolic 108–156; BP diastolic 39–88
[2018-04-02] MEDS: JEVITY 1.2 CAL 1,000 ML BOTTLE GT PRN ×2 (00:01→20:43)
[2018-04-02] MEDS: ALBUTEROL FS 2.5 MG/0.5 ML VIAL.NEB NEB SCH ×4 (00:58→19:33)
[2018-04-02] MEDS: IPRATROPIUM NEB FS 0.5 MG/2.5 ML AMPUL.NEB NEB SCH ×4 (00:58→19:33)
[2018-04-02 05:26] LABS: BASOPHILS % (AUTO) 0.1 % (0.0-2.0); EOSINOPHILS % (AUTO) 0.1 % (0.0-6.0); HEMATOCRIT 39 % (39-51); HEMOGLOBIN 12.9 g/dL (13.5-17.5); LYMPHOCYTES # (AUTO) 0.7 /CMM (0.8-4.8); LYMPHOCYTES % (AUTO) 6.2 % (20.0-44.0); MEAN CORPUSCULAR HGB CONC 33 g/dl (31.0-36.0); MEAN CORPUSCULAR VOLUME 81 fL (80-96); MONOCYTES # (AUTO) 0.8 /CMM (0.1-1.30); MONOCYTES % (AUTO) 7.7 % (2.0-12.0); NEUTROPHILS # (AUTO) 9.2 /CMM (1.8-8.9); NEUTROPHILS % (AUTO) 85.9 % (43.0-81.0); PLATELET COUNT (AUTO) 219 /CMM (150-450); RDW COEFFICIENT OF VARIATION 16.9 (11.5-15.0); RED BLOOD CELL COUNT(AUTO) 4.81 MIL/uL (4.5-6.0); WHITE BLOOD COUNT (AUTO) 10.8 K/uL (4.3-11.0)
[2018-04-02] MEDS: GLYCOPYRROLATE 1 MG TABLET GT SCH ×3 (05:37→20:44)
[2018-04-02 05:49] LABS: CALCIUM, SERUM 9.4 mg/dL (8.5-10.1); CARBON DIOXIDE 29 mmol/L (21-32); CHLORIDE 103 mmol/L (98-107); CREATININE 0.6 mg/dL (0.6-1.3); GLUCOSE 130 mg/dL (74-106); MAGNESIUM 2.3 mg/dL (1.8-2.4); POTASSIUM 4.5 mmol/L (3.5-5.1); SODIUM SERUM 140 mmol/L (136-145); UREA NITROGEN, BLOOD 28 mg/dL (7-18)
--- NOTE | 2018-04-02 08:11 | NUR ---
INITIAL PRODUCER DIRECTOR NOTE RCVD PT WITH EYES OPEN, UNABLE TO FOLLOW COMMANDS. SR ON TELE. TOLERATING O2 VIA NC WELL. PEG PLACEMENT VERIFIED BY AUSCULTATION/ASPIRATION. NO RESIDUAL OBTAINED. PT VOIDING TO DIAPER. BED BATH GIVEN. IV SITES C/D/I/PATENT. NO S/O INFILTRATION/PHLEBITIS OBSERVED UPON FLUSHING. WILL CONTINUE TO MONITOR PT FOR SAFETY AND COMFORT. BED IN LOW AND LOCKED POSITION. PT UNABLE TO CLEAR SECRETIONS, DEEP SUCTIONED THIS AM.
[2018-04-02] MEDS: BACITRACIN/POLYMYXIN B 15 GM TUBE TP SCH (08:15)
[2018-04-02] MEDS: Z GUARD REMEDY 2 OZ OINT TP SCH (08:15)
[2018-04-02] MEDS: methylPREDNISolone SOD SUCC 40 MG/ML VIAL IV SCH ×2 (08:18→17:10)
[2018-04-02] MEDS: CHLORHEXIDINE GLUCONATE 15 ML UDC MM SCH ×2 (08:18→20:43)
[2018-04-02] MEDS: PANTOPRAZOLE 40 MG VIAL IV SCH (08:18)
[2018-04-02] MEDS: ENOXAPARIN SODIUM 40 MG/0.4 ML DISP.SYRIN SQ SCH (08:19)
--- NOTE | 2018-04-02 11:52 | NUR ---
HAT COPYIST NOTE PT DOWNGRADED TO MIN. REPORT CALLED TO SHANTANU BERGERON. PT GOING TO ROOM 106 CLOSE TO THE NURSING STATION PER DR. DODD'S REQUEST. ELYSSA INFORMED THAT PT REQUIRES FREQUENT DEEP SUCTIONING PT UNABLE TO CLEAR SECRETIONS. RN ACKNOWLEDGED. PT'S MEDICATIONS AND TUBE FEEDING TRANSPORTED WITH PT. NO PERSONAL ITEMS LEFT BEHIND.
--- NOTE | 2018-04-02 12:00 | NUR ---
MIN RN NOTES: REC'D REPORT FROM ELYSSA FOURNIER. PT DOWNGRADED FROM ICU TO MIN, RM 106, TRANSFERRED VIA BED ACCOMPANIED BY CN. PT IS AWAKE, NON VERBAL. HAS O2 AT 2LPM VIA MOUTH, SATING AT 96%. PLACED ON TELEMONITOR, SR/ST W/ PVC HR 103 BPM. HAS 2 IV LINE ACCESS: RFA G18 & R AC G20, SL, BOTH FLUSHING WELL, NO S/SX OF INFECTION/INFILTRATION NOTED. HAS GT, ON CONT TF JEVITY X 1.2 AT 60 CC/HR INFUSING WELL, NO RESIDUAL NOTED UPON CHECKING. PROVIDED COMFORT & SAFETY MEASURES. BED KEPT LOW & IN LOCKED POS. WILL CONT TO MONITOR & ATTEND PT NEEDS.
[2018-04-02] MEDS: DOCUSATE SODIUM LIQ 100 MG/10 ML UDC GT SCH (17:10)
--- NOTE | 2018-04-02 18:38 | NUR ---
RN CLOSING NOTES: NO ACUTE CHANGES NOTED W/IN SHIFT. PT TOLERATED NC AT 3LPM VIA MOUTH. FREQUENT SUCTIONING DONE. PT REMAINS OBTUNDED, NON VERBAL. ON TELEMONITOR, STILL SR. PT TOLERATING CONT GTF, NO RESIDUAL W/IN SHIFT. IV LINE ACCESS KEPT PATENT & INTACT W/ NO S/SX OF INFECTION/INFILTRATION NOTED. KEPT WELL RESTED. NEEDS ATTENDED. BED KEPT LOW & IN LOCKED POS. CALL LIGHT W/IN REACH. WILL ENDORSE TO PM RN FOR STARR.
--- NOTE | 2018-04-02 19:30 | NUR ---
DIRECTOR OF REHABILITATIVE SERVICES: INITIAL NOTES RECEIVED PATIENT IN BED, AWAKE WITH EYES OPEN, BUT UNABLE TO FOLLOW COMMANDS, RESPONSIVE TO TACTILE STIMULI. SR ON CHIEF OPERATOR SYNTHESIS. TOLERATING O2 VIA NC. NOTED WITH PEG, PLACEMENT VERIFIED BY AUSCULTATION/ASPIRATION. NO GASTRIC RESIDUAL AT THIS TIME. IV SITES C/D/I/PATENT. NO S/O INFILTRATION/PHLEBITIS OBSERVED. WILL CONTINUE TO MONITOR PT FOR SAFETY AND COMFORT. BED IN LOW AND LOCKED POSITION.
--- NOTE | 2018-04-02 22:30 | NUR ---
RN NOTES: PATIENT UNABLE TO CLEAR SECRETIONS, UNABLE TO COUGH ON COMMAND. PATIENT NT SUCTIONED, WITH THICK SECRETIONS
[2018-04-03] VITALS: BP 141/84
[2018-04-03] MEDS: ALBUTEROL FS 2.5 MG/0.5 ML VIAL.NEB NEB SCH ×3 (00:57→12:53)
[2018-04-03] MEDS: IPRATROPIUM NEB FS 0.5 MG/2.5 ML AMPUL.NEB NEB SCH ×3 (00:57→12:53)
[2018-04-03 04:00] VITALS: BP 117/68
[2018-04-03] MEDS: GLYCOPYRROLATE 1 MG TABLET GT SCH ×2 (05:51→13:21)
--- NOTE | 2018-04-03 07:00 | NUR ---
RN CLOSING NOTES NO ACUTE CHANGES THROUGHOUT THE SHIFT. WILL ENDORSE THE PATIENT TO THE AM SHIFT NURSE FOR CONTINUITY OF CARE
--- NOTE | 2018-04-03 07:15 | NUR ---
RN NOTES: REC'D PT ON BED, NOT IN ANY DISTRESS, OBTUNDED. ON NC/3LPM VIA MOUTH. ON TELEMONITOR, SR W/ HR 91 BPM. HAS GT, ON CONT GTF JEVITY X 60 CC/HR INFUSING WELL, NO RESIDUAL NOTED UPON CHECKING. HAS LFA G20, SL, PATENT & INTACT W/ NO S/SX OF INFECTION/INFILTRATION NOTED. WILL ASSESS & DO FREQUENT SUCTIONING ORDERED. PROVIDED COMFORT & SAFETY MEASURES. BED KEPT LOW & IN LOCKED POS. CALL LIGHT PLACED W/IN REACH. WILL CONTINUE TO MONITOR & ATTEND PT NEEDS.
[2018-04-03 08:00] VITALS: BP 124/68
[2018-04-03] MEDS: methylPREDNISolone SOD SUCC 40 MG/ML VIAL IV SCH ×2 (08:36→16:11)
[2018-04-03] MEDS: Z GUARD REMEDY 2 OZ OINT TP SCH (08:36)
[2018-04-03] MEDS: CHLORHEXIDINE GLUCONATE 15 ML UDC MM SCH (08:36)
[2018-04-03] MEDS: PANTOPRAZOLE 40 MG VIAL IV SCH (08:36)
[2018-04-03] MEDS: BACITRACIN/POLYMYXIN B 15 GM TUBE TP SCH (08:37)
[2018-04-03] MEDS: ENOXAPARIN SODIUM 40 MG/0.4 ML DISP.SYRIN SQ SCH (08:42)
--- NOTE | 2018-04-03 08:57 | NUR ---
RN NOTES: PT SEEN & EXAMINED BY DR. DODD. PT DEEP SUCTIONED.
[2018-04-03 12:00] VITALS: BP 121/67
[2018-04-03 16:00] VITALS: BP 133/61
[2018-04-03] MEDS: ACETAMINOPHEN 650 MG/20.3 ML UDC GT PRN (16:12)
[2018-04-03] MEDS: DOCUSATE SODIUM LIQ 100 MG/10 ML UDC GT SCH (18:00)
--- NOTE | 2018-04-03 18:18 | NUR ---
SERVICE TECHNICIAN COPIER NOTES: [facility] DC DOCUMENTS PROVIDED TO THE radio maintainer. PT REMAINS OBTUNDED, NOT IN ANY DISTRESS. STILL ON NC AT 3LPM VIA MOUTH, SATING AT 94%. DEEP SUCTIONED PRIOR TO DC. GT KEPT PATENT & INTACT, FLUSHING WELL. TELEMONITOR REMOVED. IV LINE ACCESS REMOVED, PRESSURE DRESSING APPLIED. WOUND CARE DONE, PHOTOS TAKEN & PLACED IN THE CHART. REPORT GIVEN TO LAKESHIA FOURNIER. PT LEFT IN STABLE CONDITION VIA RARGONIA ACCOMPANIED BY radio maintainer. NO BELONGINGS NOTED. NO CONCERN IDENTIFIED AT THE TIME OF DC.
== END 2018-04-03 18:18 | DRG 871 ==
LOC: ER 19:09 → TELE 21:49 → MED 03-23 09:32 → ICU 03-26 11:47 → TELE-TD 04-02 11:56
PROVIDERS: ADMIT Legal Medicine; ATTEND Legal Medicine
DX: A41.9 Sepsis, unspecified organism (principal); J69.0 Pneumonitis due to inhalation of food and vomit; N17.0 Acute kidney failure with tubular necrosis; E43 Unspecified severe protein-calorie malnutrition; J96.02 Acute respiratory failure with hypercapnia; J96.01 Acute respiratory failure with hypoxia; G92 Toxic encephalopathy; L89.320 Pressure ulcer of left buttock, unstageable; E87.5 Hyperkalemia; R13.10 Dysphagia, unspecified; G30.9 Alzheimer's disease, unspecified; F02.80 Dementia in other diseases classified elsewhere, unspecified severity, without behavioral disturbance, psychotic disturbance, mood disturbance, and anxiety; E86.0 Dehydration; E78.5 Hyperlipidemia, unspecified; I10 Essential (primary) hypertension; Z93.1 Gastrostomy status; Z87.01 Personal history of pneumonia (recurrent); F09 Unspecified mental disorder due to known physiological condition; E88.09 Other disorders of plasma-protein metabolism, not elsewhere classified; M62.50 Muscle wasting and atrophy, not elsewhere classified, unspecified site; Z68.20 Body mass index [BMI] 20.0-20.9, adult
CPT/HCPCS: 31720; 36415; 36600; 71045-TC; 80048-TC; 80076-TC; 82803-TC; 83735-TC; 83880; 84100-TC; 84484-TC; 85025-TC; 87040-TC; 87081-TC; 94760-TC; 94762-TC; 94799-TC; A4217; A4349; A4606; A4624; C9113; J1650; J1940; J1956; J2543; J2920; J2930; J3480; J7042; J7050; J7060; J7070; Z7610

== ENCOUNTER 2018-05-17 19:29 | Inpatient (IN) | payer MEDICARE, MEDICAID ==
[~2018-05-17] VITALS: Ht 165.1 cm; Wt 54.4 kg
[~2018-05-17 19:29] MED LIST changes: -ALBU2.5V13 NEB; +CHLO473M5 MM; -DOCU-141 GT; +DOCU50LI GT; -ERYT250C68 GT; -FERR325T23 GT; +GLYC1TAB5 GT; +LACT-96 GT; -METO-295 GT; -NUTR250L48 GT; +PANT40SU2 GT; -PIPE3.376 IV; -RANI150T43 GT; +SACC250C GT; -VANC750P8 IV; -methylPREDNISolone SOD SUCC IV
[2018-05-17] MEDS ORDERED: IV NS 0.9% 1,000 ML BAG IV ONE ×2 (20:00→20:30)
[2018-05-17 20:05] LABS: BASOPHILS # (AUTO) 0.3 /CMM (0.0-0.2); BASOPHILS % (AUTO) 2.2 % (0.0-2.0); EOSINOPHILS % (AUTO) 0.7 % (0.0-6.0); HEMATOCRIT 34 % (39-51); HEMOGLOBIN 11.4 g/dL (13.5-17.5); LYMPHOCYTES # (AUTO) 1.4 /CMM (0.8-4.8); LYMPHOCYTES % (AUTO) 10.1 % (20.0-44.0); MEAN CORPUSCULAR HEMOGLOBIN 26 PG (26.0-33.0); MEAN CORPUSCULAR HGB CONC 33 g/dl (31.0-36.0); MEAN CORPUSCULAR VOLUME 79 fL (80-96); MONOCYTES # (AUTO) 0.8 /CMM (0.1-1.30); MONOCYTES % (AUTO) 5.7 % (2.0-12.0); NEUTROPHILS # (AUTO) 10.9 /CMM (1.8-8.9); NEUTROPHILS % (AUTO) 81.3 % (43.0-81.0); PLATELET COUNT (AUTO) 367 /CMM (150-450); RDW COEFFICIENT OF VARIATION 15.8 (11.5-15.0); RED BLOOD CELL COUNT(AUTO) 4.34 MIL/uL (4.5-6.0); WHITE BLOOD COUNT (AUTO) 13.5 K/uL (4.3-11.0)
[2018-05-17 20:11] LABS: CALCIUM, SERUM 9.1 mg/dL (8.5-10.1); CARBON DIOXIDE 33 mmol/L (21-32); CHLORIDE 99 mmol/L (98-107); CREATININE 0.5 mg/dL (0.6-1.3); GLUCOSE 107 mg/dL (74-106); POTASSIUM 3.7 mmol/L (3.5-5.1); SODIUM SERUM 133 mmol/L (136-145); UREA NITROGEN, BLOOD 18 mg/dL (7-18)
[2018-05-17 20:17] LABS: ALANINE AMINOTRANSFERASE 20 U/L (12-78); ALBUMIN 2.3 g/dL (3.4-5.0); ALKALINE PHOSPHATASE 114 U/L (46-116); ASPARTATE AMINOTRANSFERASE 32 U/L (15-37); BILIRUBIN,DIRECT 0.1 mg/dL (0.0-0.2); BILIRUBIN,TOTAL 0.3 mg/dL (0.2-1.0); TOTAL PROTEIN, SERUM 7.2 g/dL (6.4-8.2)
[2018-05-17 20:18] LABS: TROPONIN I < 0.017 ng/mL (0.00-0.056)
[2018-05-17 20:30] LABS: INR 0.99 (0.87-1.13)
[2018-05-17] MEDS ORDERED: ACETAMINOPHEN 160 MG/5 ML GT ONE (20:30)
[2018-05-17] MEDS ORDERED: VANCOMYCIN 1 GM in IV D5W 250 ML IV ONE (20:30)
[2018-05-17] MEDS ORDERED: CEFEPIME 1 GM in IV D5W 50 ML IV ONE (20:30)
[2018-05-17] MEDS ORDERED: CEFEPIME 1 GM VIAL ONE (20:32)
[2018-05-17] MEDS ORDERED: ACETAMINOPHEN 650 MG/20.3 ML UDC ONE (20:32)
[2018-05-17] MEDS ORDERED: VANCOMYCIN 1 GM VIAL ONE (20:32)
[2018-05-17] MEDS ORDERED: LIDOCAINE 2% JEL UROJET 10 ML MM ONE ×2 (20:43→21:00)
[2018-05-17 21:06] LABS: BAND % (MANUAL) 2 % (0.0-5.0); EOSINOPHILS % (MANUAL) 2 % (0-4); LYMPHOCYTES % (MANUAL) 7 % (16-48); MONOCYTES % (MANUAL) 4 % (0-11.0); NEUTROPHILS % (MANUAL) 85 (42-76)
[2018-05-17] MEDS ORDERED: ONDANSETRON HCL/PF 4 MG/2 ML VIAL ONE (21:11)
[2018-05-17 21:22] LABS: APPEARANCE,URINE Clear (CLEAR); BILIRUBIN,URINE Negative (NEGATIVE); BLOOD, URINE Negative Ery/uL (NEGATIVE); COLOR,URINE Yellow (YELLOW); KETONES,URINE Negative (NEGATIVE); LEUKOCYTE ESTERASE ,URINE Negative (NEGATIVE); NITRITE, URINE Negative (NEGATIVE); PROTEIN,URINE Negative (NEGATIVE); UGLUCOSE Negative (NEGATIVE); UROBILINOGEN,URINE 0.2 EU/dL (0.2)
[2018-05-17] MEDS ORDERED: ONDANSETRON HCL/PF 4 MG/2 ML VIAL IVP PRN (21:30)
[2018-05-17] MEDS ORDERED: ACETAMINOPHEN 325 MG TABLET PO PRN (21:30)
[2018-05-17] MEDS ORDERED: VANCOMYCIN 1 GM in IV NS 0.9% 250 ML IV SCH (21:30)
[2018-05-17] MEDS ORDERED: ALBUTEROL FS 2.5 MG/0.5 ML VIAL.NEB NEB PRN (21:30)
[2018-05-17] MEDS ORDERED: ONDANSETRON HCL/PF 4 MG/2 ML VIAL IV ONE (21:30)
[2018-05-17] MEDS ORDERED: IPRATROPIUM NEB FS 0.5 MG/2.5 ML AMPUL.NEB NEB PRN (21:30)
[2018-05-17] MEDS ORDERED: ZOLPIDEM TARTRATE 5 MG TABLET PO PRN (21:30)
[2018-05-17] MEDS ORDERED: ONDANSETRON HCL/PF 4 MG/2 ML VIAL IV STA (21:46)
[2018-05-17] MEDS: IV D5/0.45 NACL 1,000 ML IV PRN (22:54)
[2018-05-17 23:00] VITALS: BP 123/63
[2018-05-17 23:09] LABS: ABG BASE EXCESS 3.9 mmol/L; ABG OXYGEN SATURATION 94.2 % (92.0-98.5); ABG PCO2 55.8 mmHg (35.0-45.0); ABG PH 7.354 (7.350-7.450); ABG PO2 86.4 mmHg (75.0-100.0); AaDO2 134.6 mmHg; COHb 0.3 % (0.5-1.5); MetHb 0.7 % (0.0-1.5); O2Hb 93.3 % (94.0-97.0); SITE, ABG Right Radial; VENT MODE, BG nasal cannula
[2018-05-17] MEDS ORDERED: PIPERACILLIN /TAZOBACTAM 2.25 G VIAL IV ONE (23:28)
[2018-05-17 23:30] VITALS: BP 151/83
[2018-05-18] VITALS (74 sets, daily range): BP systolic 77–134; BP diastolic 14–85
[2018-05-18] MEDS ORDERED: PIPERACILLIN /TAZOBACTAM 4.5 G in IV NS 0.9% 50 ML IV SCH ×2
[2018-05-18] MEDS ORDERED: PIPERACILLIN /TAZOBACTAM 4.5 G in IV NS 0.9% 100 ML IV SCH ×2
[2018-05-18] MEDS ORDERED: PIPERACILLIN /TAZOBACTAM 2.25 G VIAL IV ONE (03:06)
[2018-05-18 03:39] LABS: ABG BASE EXCESS 2.3 mmol/L; ABG OXYGEN SATURATION 91.6 % (92.0-98.5); ABG PCO2 45.4 mmHg (35.0-45.0); ABG PO2 68.2 mmHg (75.0-100.0); AaDO2 309.7 mmHg; COHb 0.3 % (0.5-1.5); MetHb 0.7 % (0.0-1.5); O2Hb 90.7 % (94.0-97.0); SITE, ABG Right Radial; VENT MODE, BG simple mask
[2018-05-18] MEDS ORDERED: PROPOFOL 100 ML ONE (04:00)
[2018-05-18] MEDS ORDERED: NOREPINEPHRINE 4 MG/4 ML AMPUL IV ONE (04:16)
[2018-05-18] MEDS ORDERED: NOREPINEPHRINE 8 MG in IV D5W 500 ML IV PRN (04:30)
[2018-05-18] MEDS: PROPOFOL 100 ML IV PRN ×3 (04:42→17:15)
[2018-05-18 05:07] LABS: BASOPHILS % (AUTO) 0.1 % (0.0-2.0); EOSINOPHILS % (AUTO) 0.3 % (0.0-6.0); HEMATOCRIT 31 % (39-51); HEMOGLOBIN 9.7 g/dL (13.5-17.5); LYMPHOCYTES # (AUTO) 0.7 /CMM (0.8-4.8); LYMPHOCYTES % (AUTO) 4.2 % (20.0-44.0); MEAN CORPUSCULAR HEMOGLOBIN 26 PG (26.0-33.0); MEAN CORPUSCULAR HGB CONC 32 g/dl (31.0-36.0); MEAN CORPUSCULAR VOLUME 83 fL (80-96); MONOCYTES # (AUTO) 0.5 /CMM (0.1-1.30); MONOCYTES % (AUTO) 3.1 % (2.0-12.0); NEUTROPHILS # (AUTO) 15.8 /CMM (1.8-8.9); NEUTROPHILS % (AUTO) 92.3 % (43.0-81.0); PLATELET COUNT (AUTO) 308 /CMM (150-450); RDW COEFFICIENT OF VARIATION 16.6 (11.5-15.0); RED BLOOD CELL COUNT(AUTO) 3.71 MIL/uL (4.5-6.0); WHITE BLOOD COUNT (AUTO) 17.1 K/uL (4.3-11.0)
[2018-05-18] MEDS: PIPERACILLIN /TAZOBACTAM 4.5 G in IV NS 0.9% 100 ML IV SCH ×4 (05:23→23:41)
[2018-05-18 05:25] LABS: ABG BASE EXCESS 5.7 mmol/L; ABG OXYGEN SATURATION 97.1 % (92.0-98.5); ABG PCO2 37.6 mmHg (35.0-45.0); ABG PH 7.507 (7.350-7.450); ABG PO2 106.1 mmHg (75.0-100.0); AaDO2 208.1 mmHg; COHb 0.3 % (0.5-1.5); MetHb 0.8 % (0.0-1.5); SITE, ABG Right Radial; VENT MODE, BG AC 16 500 50% +5
[2018-05-18 05:34] LABS: CALCIUM, SERUM 8.3 mg/dL (8.5-10.1); CARBON DIOXIDE 30 mmol/L (21-32); CHLORIDE 103 mmol/L (98-107); CREATININE 0.6 mg/dL (0.6-1.3); GLUCOSE 107 mg/dL (74-106); PHOSPHORUS 3.1 mg/dL (2.5-4.9); POTASSIUM 3.6 mmol/L (3.5-5.1); SODIUM SERUM 137 mmol/L (136-145); UREA NITROGEN, BLOOD 16 mg/dL (7-18)
[2018-05-18 05:35] LABS: HDL CHOLESTEROL 29 mg/dL (40-60); LDL 82 mg/dL (0-99); THYROID STIMULATING HORMONE 5.584 uIU/mL (0.358-3.74); TRIGLYCERIDES 112 mg/dL (30-150)
[2018-05-18 05:47] LABS: CHOLESTEROL 127 mg/dL (<200)
[2018-05-18] MEDS ORDERED: FEE PK DOSING 1 MIN EA MC ONE (08:27)
[2018-05-18] MEDS: VANCOMYCIN 0.75 GM in IV D5W 250 ML IV SCH ×2 (08:56→21:00)
[2018-05-18] MEDS ORDERED: PANTOPRAZOLE 40 MG VIAL IV SCH (09:00)
[2018-05-18] MEDS: SUCRALFATE 1 G/10 ML UDC GT SCH ×3 (12:55→23:41)
[2018-05-18] MEDS: IV D5/0.45 NACL 1,000 ML IV PRN (12:55)
[2018-05-18] MEDS: PANTOPRAZOLE 40 MG VIAL IV SCH (21:00)
[2018-05-19] VITALS (44 sets, daily range): BP systolic 101–150; BP diastolic 60–87
[2018-05-19] MEDS: IV D5/0.45 NACL 1,000 ML IV PRN ×2 (01:02→16:26)
[2018-05-19] MEDS: PROPOFOL 100 ML IV PRN ×4 (01:16→17:56)
[2018-05-19 05:15] LABS: BASOPHILS % (AUTO) 0.4 % (0.0-2.0); EOSINOPHILS % (AUTO) 4.2 % (0.0-6.0); HEMATOCRIT 25 % (39-51); HEMOGLOBIN 7.9 g/dL (13.5-17.5); LYMPHOCYTES # (AUTO) 0.8 /CMM (0.8-4.8); LYMPHOCYTES % (AUTO) 15.4 % (20.0-44.0); MEAN CORPUSCULAR HEMOGLOBIN 26 PG (26.0-33.0); MEAN CORPUSCULAR HGB CONC 32 g/dl (31.0-36.0); MEAN CORPUSCULAR VOLUME 82 fL (80-96); MONOCYTES # (AUTO) 0.4 /CMM (0.1-1.30); NEUTROPHILS # (AUTO) 3.9 /CMM (1.8-8.9); PLATELET COUNT (AUTO) 228 /CMM (150-450); RDW COEFFICIENT OF VARIATION 16.1 (11.5-15.0); RED BLOOD CELL COUNT(AUTO) 3.02 MIL/uL (4.5-6.0); WHITE BLOOD COUNT (AUTO) 5.4 K/uL (4.3-11.0)
[2018-05-19] MEDS: PIPERACILLIN /TAZOBACTAM 4.5 G in IV NS 0.9% 100 ML IV SCH ×4 (05:24→23:43)
[2018-05-19] MEDS: SUCRALFATE 1 G/10 ML UDC GT SCH ×4 (05:24→23:44)
[2018-05-19 05:37] LABS: CARBON DIOXIDE 28 mmol/L (21-32); CHLORIDE 104 mmol/L (98-107); CREATININE 0.6 mg/dL (0.6-1.3); GLUCOSE 109 mg/dL (74-106); SODIUM SERUM 137 mmol/L (136-145); UREA NITROGEN, BLOOD 9 mg/dL (7-18)
[2018-05-19 06:02] LABS: POTASSIUM 2.7 mmol/L (3.5-5.1)
[2018-05-19] MEDS ORDERED: POTASSIUM CL. PREMIX PERIPHER. 50 ML ONE (06:25)
[2018-05-19] MEDS: POTASSIUM CL. PREMIX PERIPHER. 50 ML IV SCH ×6 (07:23→23:42)
[2018-05-19] MEDS: PANTOPRAZOLE 40 MG VIAL IV SCH ×2 (08:25→20:43)
[2018-05-19] MEDS: VANCOMYCIN 0.75 GM in IV D5W 250 ML IV SCH ×2 (10:37→20:44)
[2018-05-19 11:59] LABS: ABG OXYGEN SATURATION 98.2 % (92.0-98.5); ABG PCO2 26.9 mmHg (35.0-45.0); ABG PH 7.565 (7.350-7.450); ABG PO2 189.2 mmHg (75.0-100.0); COHb 0.3 % (0.5-1.5); MetHb 0.8 % (0.0-1.5); O2Hb 97.1 % (94.0-97.0); SITE, ABG Right Radial
[2018-05-19 21:26] LABS: BASOPHILS % (AUTO) 0.3 % (0.0-2.0); EOSINOPHILS % (AUTO) 3.8 % (0.0-6.0); HEMATOCRIT 34 % (39-51); LYMPHOCYTES % (AUTO) 17.5 % (20.0-44.0); MEAN CORPUSCULAR HEMOGLOBIN 27 PG (26.0-33.0); MEAN CORPUSCULAR HGB CONC 33 g/dl (31.0-36.0); MEAN CORPUSCULAR VOLUME 84 fL (80-96); MONOCYTES # (AUTO) 0.5 /CMM (0.1-1.30); MONOCYTES % (AUTO) 8.3 % (2.0-12.0); NEUTROPHILS # (AUTO) 4.1 /CMM (1.8-8.9); NEUTROPHILS % (AUTO) 70.1 % (43.0-81.0); PLATELET COUNT (AUTO) 234 /CMM (150-450); RDW COEFFICIENT OF VARIATION 17.9 (11.5-15.0); RED BLOOD CELL COUNT(AUTO) 4.03 MIL/uL (4.5-6.0); WHITE BLOOD COUNT (AUTO) 5.9 K/uL (4.3-11.0)
[2018-05-19 21:37] LABS: CALCIUM, SERUM 7.8 mg/dL (8.5-10.1); CARBON DIOXIDE 26 mmol/L (21-32); CHLORIDE 107 mmol/L (98-107); CREATININE 0.6 mg/dL (0.6-1.3); GLUCOSE 130 mg/dL (74-106); SODIUM SERUM 141 mmol/L (136-145); UREA NITROGEN, BLOOD 6 mg/dL (7-18)
[2018-05-19 21:39] LABS: POTASSIUM 2.6 mmol/L (3.5-5.1)
[2018-05-20] VITALS (35 sets, daily range): BP systolic 92–157; BP diastolic 57–99
[2018-05-20] MEDS: POTASSIUM CL. PREMIX PERIPHER. 50 ML IV SCH ×2 (00:58→01:38)
[2018-05-20] MEDS: PROPOFOL 100 ML IV PRN ×5 (01:27→20:56)
[2018-05-20] MEDS: IV D5/0.45 NACL 1,000 ML IV PRN ×2 (04:02→15:58)
[2018-05-20] MEDS: PIPERACILLIN /TAZOBACTAM 4.5 G in IV NS 0.9% 100 ML IV SCH ×4 (05:50→23:16)
[2018-05-20 05:51] LABS: CALCIUM, SERUM 7.8 mg/dL (8.5-10.1); CARBON DIOXIDE 23 mmol/L (21-32); CHLORIDE 108 mmol/L (98-107); CREATININE 0.4 mg/dL (0.6-1.3); GLUCOSE 113 mg/dL (74-106); POTASSIUM 3.7 mmol/L (3.5-5.1); SODIUM SERUM 140 mmol/L (136-145); UREA NITROGEN, BLOOD 5 mg/dL (7-18)
[2018-05-20] MEDS: SUCRALFATE 1 G/10 ML UDC GT SCH ×4 (05:53→23:16)
[2018-05-20] MEDS: PANTOPRAZOLE 40 MG VIAL IV SCH ×2 (08:29→20:11)
[2018-05-20] MEDS: VANCOMYCIN 0.75 GM in IV D5W 250 ML IV SCH ×3 (08:29→21:39)
[2018-05-20] MEDS: MORPHINE SULFATE INJ 2 MG/ML DISP.SYRIN IV PRN (15:58)
[2018-05-21] VITALS (36 sets, daily range): BP systolic 113–163; BP diastolic 60–124
[2018-05-21] MEDS: IV D5/0.45 NACL 1,000 ML IV PRN ×2 (04:02→16:33)
[2018-05-21] MEDS: PROPOFOL 100 ML IV PRN (04:03)
[2018-05-21 05:01] LABS: BASOPHILS % (AUTO) 0.3 % (0.0-2.0); EOSINOPHILS % (AUTO) 3.7 % (0.0-6.0); HEMATOCRIT 39 % (39-51); HEMOGLOBIN 12.5 g/dL (13.5-17.5); LYMPHOCYTES # (AUTO) 1.7 /CMM (0.8-4.8); LYMPHOCYTES % (AUTO) 28.4 % (20.0-44.0); MEAN CORPUSCULAR HEMOGLOBIN 27 PG (26.0-33.0); MEAN CORPUSCULAR HGB CONC 32 g/dl (31.0-36.0); MEAN CORPUSCULAR VOLUME 85 fL (80-96); MONOCYTES # (AUTO) 0.8 /CMM (0.1-1.30); MONOCYTES % (AUTO) 13.1 % (2.0-12.0); NEUTROPHILS # (AUTO) 3.2 /CMM (1.8-8.9); NEUTROPHILS % (AUTO) 54.5 % (43.0-81.0); PLATELET COUNT (AUTO) 234 /CMM (150-450); RDW COEFFICIENT OF VARIATION 18.1 (11.5-15.0); RED BLOOD CELL COUNT(AUTO) 4.62 MIL/uL (4.5-6.0); WHITE BLOOD COUNT (AUTO) 5.9 K/uL (4.3-11.0)
[2018-05-21] MEDS: SUCRALFATE 1 G/10 ML UDC GT SCH ×4 (05:03→23:21)
[2018-05-21] MEDS: PIPERACILLIN /TAZOBACTAM 4.5 G in IV NS 0.9% 100 ML IV SCH ×2 (05:03→12:12)
[2018-05-21 05:18] LABS: CALCIUM, SERUM 8.3 mg/dL (8.5-10.1); CARBON DIOXIDE 21 mmol/L (21-32); CHLORIDE 104 mmol/L (98-107); CREATININE 0.6 mg/dL (0.6-1.3); GLUCOSE 98 mg/dL (74-106); MAGNESIUM 1.9 mg/dL (1.8-2.4); PHOSPHORUS 3.2 mg/dL (2.5-4.9); SODIUM SERUM 137 mmol/L (136-145); UREA NITROGEN, BLOOD 3 mg/dL (7-18)
[2018-05-21] MEDS: PANTOPRAZOLE 40 MG VIAL IV SCH ×2 (09:25→21:37)
[2018-05-21] MEDS: VANCOMYCIN 0.75 GM in IV D5W 250 ML IV SCH (09:25)
[2018-05-21] MEDS: Z GUARD REMEDY 2 OZ OINT TP PRN (09:26)
[2018-05-21 10:10] LABS: ABG OXYGEN SATURATION 97.3 % (92.0-98.5); ABG PCO2 34.2 mmHg (35.0-45.0); ABG PH 7.454 (7.350-7.450); ABG PO2 108.7 mmHg (75.0-100.0); AaDO2 137.2 mmHg; COHb 0.3 % (0.5-1.5); MetHb 0.6 % (0.0-1.5); O2Hb 96.4 % (94.0-97.0); SITE, ABG Right Brachial
[2018-05-21] MEDS: POTASSIUM CHLORIDE 20 MEQ POWDER PACKET PO SCH ×3 (10:19→12:12)
[2018-05-21] MEDS: HYDROCODONE/APAP 5/325MG 1 EACH TABLET PO PRN (10:52)
[2018-05-21] MEDS: ZOSYN IVPB 4.5 G in IV D5W 50ml IV SCH ×2 (17:52→23:21)
[2018-05-21 21:46] LABS: OCCULT BLOOD STOOL POSITIVE (NEGATIVE)
[2018-05-22] VITALS (39 sets, daily range): BP systolic 99–163; BP diastolic 61–94
[2018-05-22] MEDS: IV D5/0.45 NACL 1,000 ML IV PRN ×2 (03:41→15:09)
[2018-05-22 04:30] LABS: BASOPHILS % (AUTO) 0.3 % (0.0-2.0); EOSINOPHILS % (AUTO) 3.7 % (0.0-6.0); HEMATOCRIT 37 % (39-51); HEMOGLOBIN 11.8 g/dL (13.5-17.5); LYMPHOCYTES % (AUTO) 14.4 % (20.0-44.0); MEAN CORPUSCULAR HEMOGLOBIN 27 PG (26.0-33.0); MEAN CORPUSCULAR HGB CONC 32 g/dl (31.0-36.0); MEAN CORPUSCULAR VOLUME 84 fL (80-96); MONOCYTES # (AUTO) 0.5 /CMM (0.1-1.30); MONOCYTES % (AUTO) 7.9 % (2.0-12.0); NEUTROPHILS # (AUTO) 5.1 /CMM (1.8-8.9); NEUTROPHILS % (AUTO) 73.7 % (43.0-81.0); PLATELET COUNT (AUTO) 262 /CMM (150-450); RDW COEFFICIENT OF VARIATION 17.6 (11.5-15.0); RED BLOOD CELL COUNT(AUTO) 4.35 MIL/uL (4.5-6.0); WHITE BLOOD COUNT (AUTO) 6.9 K/uL (4.3-11.0)
[2018-05-22 04:45] LABS: CARBON DIOXIDE 23 mmol/L (21-32); CHLORIDE 106 mmol/L (98-107); CREATININE 0.6 mg/dL (0.6-1.3); GLUCOSE 97 mg/dL (74-106); MAGNESIUM 1.7 mg/dL (1.8-2.4); PHOSPHORUS 3.2 mg/dL (2.5-4.9); POTASSIUM 2.9 mmol/L (3.5-5.1); SODIUM SERUM 139 mmol/L (136-145); UREA NITROGEN, BLOOD 3 mg/dL (7-18)
[2018-05-22] MEDS: ZOSYN IVPB 4.5 G in IV D5W 50ml IV SCH ×3 (05:25→17:26)
[2018-05-22] MEDS: SUCRALFATE 1 G/10 ML UDC GT SCH ×3 (05:25→17:26)
[2018-05-22 08:45] LABS: ABG BASE EXCESS -0.1 mmol/L; ABG OXYGEN SATURATION 96.7 % (92.0-98.5); ABG PCO2 36.6 mmHg (35.0-45.0); ABG PH 7.433 (7.350-7.450); ABG PO2 91.1 mmHg (75.0-100.0); COHb 1.1 % (0.5-1.5); MetHb 0.9 % (0.0-1.5); O2Hb 94.8 % (94.0-97.0); SITE, ABG Right Brachial; VENT MODE, BG CA 40%
[2018-05-22] MEDS: PANTOPRAZOLE 40 MG VIAL IV SCH ×2 (08:48→20:29)
[2018-05-22] MEDS: POTASSIUM CL. PREMIX PERIPHER. 50 ML IV SCH ×2 (09:12→10:10)
[2018-05-22] MEDS: Magnesium 1GM/D5W 100ML PREMIX 100 ML IV SCH ×2 (09:12→10:10)
[2018-05-22] MEDS: OSMOLITE 1.2 CAL 1,000 ML LIQUID GT PRN (18:31)
[2018-05-23] VITALS (35 sets, daily range): BP systolic 100–166; BP diastolic 55–98
[2018-05-23] MEDS: IV D5/0.45 NACL 1,000 ML IV PRN ×3 (00:52→22:51)
[2018-05-23 04:49] LABS: BASOPHILS % (AUTO) 0.4 % (0.0-2.0); EOSINOPHILS % (AUTO) 4.8 % (0.0-6.0); HEMATOCRIT 37 % (39-51); HEMOGLOBIN 12.1 g/dL (13.5-17.5); LYMPHOCYTES # (AUTO) 1.6 /CMM (0.8-4.8); LYMPHOCYTES % (AUTO) 23.1 % (20.0-44.0); MEAN CORPUSCULAR HEMOGLOBIN 27 PG (26.0-33.0); MEAN CORPUSCULAR HGB CONC 33 g/dl (31.0-36.0); MEAN CORPUSCULAR VOLUME 84 fL (80-96); MONOCYTES # (AUTO) 0.5 /CMM (0.1-1.30); MONOCYTES % (AUTO) 7.8 % (2.0-12.0); NEUTROPHILS # (AUTO) 4.4 /CMM (1.8-8.9); NEUTROPHILS % (AUTO) 63.9 % (43.0-81.0); PLATELET COUNT (AUTO) 227 /CMM (150-450); RDW COEFFICIENT OF VARIATION 17.4 (11.5-15.0); RED BLOOD CELL COUNT(AUTO) 4.44 MIL/uL (4.5-6.0); WHITE BLOOD COUNT (AUTO) 6.8 K/uL (4.3-11.0)
[2018-05-23 04:55] LABS: CALCIUM, SERUM 7.5 mg/dL (8.5-10.1); CARBON DIOXIDE 23 mmol/L (21-32); CHLORIDE 102 mmol/L (98-107); CREATININE 0.6 mg/dL (0.6-1.3); GLUCOSE 109 mg/dL (74-106); POTASSIUM 3.6 mmol/L (3.5-5.1); SODIUM SERUM 134 mmol/L (136-145); UREA NITROGEN, BLOOD 5 mg/dL (7-18)
[2018-05-23] MEDS: ZOSYN IVPB 4.5 G in IV D5W 50ml IV SCH ×6 (05:52→23:11)
[2018-05-23] MEDS: SUCRALFATE 1 G/10 ML UDC GT SCH ×5 (05:53→23:11)
[2018-05-23] MEDS: PANTOPRAZOLE 40 MG VIAL IV SCH ×2 (09:05→20:09)
[2018-05-23] MEDS: OSMOLITE 1.2 CAL 1,000 ML LIQUID GT PRN (23:09)
[2018-05-24] VITALS (34 sets, daily range): BP systolic 117–146; BP diastolic 65–91
[2018-05-24 05:02] LABS: CALCIUM, SERUM 7.2 mg/dL (8.5-10.1); CARBON DIOXIDE 24 mmol/L (21-32); CHLORIDE 101 mmol/L (98-107); CREATININE 0.5 mg/dL (0.6-1.3); GLUCOSE 115 mg/dL (74-106); SODIUM SERUM 135 mmol/L (136-145); UREA NITROGEN, BLOOD 8 mg/dL (7-18)
[2018-05-24] MEDS: SUCRALFATE 1 G/10 ML UDC GT SCH ×4 (05:03→23:15)
[2018-05-24] MEDS: ZOSYN IVPB 4.5 G in IV D5W 50ml IV SCH ×4 (05:03→23:15)
[2018-05-24 05:15] LABS: POTASSIUM 2.7 mmol/L (3.5-5.1)
[2018-05-24] MEDS: POTASSIUM CL. PREMIX PERIPHER. 50 ML IV SCH ×4 (06:27→09:42)
[2018-05-24] MEDS ORDERED: POTASSIUM CHLORIDE 20 MEQ POWDER PACKET GT SCH (06:30)
[2018-05-24] MEDS: Z GUARD REMEDY 2 OZ OINT TP PRN ×2 (07:27→16:34)
[2018-05-24] MEDS: PANTOPRAZOLE 40 MG VIAL IV SCH ×2 (08:04→21:25)
[2018-05-24] MEDS: IV D5/0.45 NACL 1,000 ML IV PRN ×2 (09:51→21:59)
[2018-05-24] MEDS: OSMOLITE 1.2 CAL 1,000 ML LIQUID GT PRN (16:34)
[2018-05-25] VITALS (35 sets, daily range): BP systolic 101–161; BP diastolic 61–88
[2018-05-25 04:56] LABS: BASOPHILS % (AUTO) 0.3 % (0.0-2.0); EOSINOPHILS % (AUTO) 3.9 % (0.0-6.0); HEMATOCRIT 33 % (39-51); HEMOGLOBIN 10.6 g/dL (13.5-17.5); LYMPHOCYTES # (AUTO) 1.1 /CMM (0.8-4.8); LYMPHOCYTES % (AUTO) 14.2 % (20.0-44.0); MEAN CORPUSCULAR HEMOGLOBIN 27 PG (26.0-33.0); MEAN CORPUSCULAR HGB CONC 33 g/dl (31.0-36.0); MEAN CORPUSCULAR VOLUME 83 fL (80-96); MONOCYTES # (AUTO) 0.6 /CMM (0.1-1.30); MONOCYTES % (AUTO) 7.5 % (2.0-12.0); NEUTROPHILS # (AUTO) 5.6 /CMM (1.8-8.9); NEUTROPHILS % (AUTO) 74.1 % (43.0-81.0); PLATELET COUNT (AUTO) 218 /CMM (150-450); RDW COEFFICIENT OF VARIATION 17.5 (11.5-15.0); RED BLOOD CELL COUNT(AUTO) 3.91 MIL/uL (4.5-6.0); WHITE BLOOD COUNT (AUTO) 7.5 K/uL (4.3-11.0)
[2018-05-25 05:09] LABS: CALCIUM, SERUM 7.5 mg/dL (8.5-10.1); CARBON DIOXIDE 27 mmol/L (21-32); CHLORIDE 102 mmol/L (98-107); CREATININE 0.5 mg/dL (0.6-1.3); GLUCOSE 139 mg/dL (74-106); MAGNESIUM 1.5 mg/dL (1.8-2.4); POTASSIUM 2.9 mmol/L (3.5-5.1); SODIUM SERUM 136 mmol/L (136-145); UREA NITROGEN, BLOOD 6 mg/dL (7-18)
[2018-05-25] MEDS: OSMOLITE 1.2 CAL 1,000 ML LIQUID GT PRN (05:48)
[2018-05-25] MEDS: ZOSYN IVPB 4.5 G in IV D5W 50ml IV SCH ×4 (05:48→23:19)
[2018-05-25] MEDS: SUCRALFATE 1 G/10 ML UDC GT SCH ×4 (05:48→23:20)
[2018-05-25] MEDS: PANTOPRAZOLE 40 MG VIAL IV SCH ×2 (08:39→21:31)
[2018-05-25] MEDS: Magnesium 1GM/D5W 100ML PREMIX 100 ML IV SCH ×2 (08:39→09:55)
[2018-05-25] MEDS: POTASSIUM CL. PREMIX PERIPHER. 50 ML IV SCH ×4 (08:39→14:06)
[2018-05-25] MEDS: IV D5/0.45 NACL 1,000 ML IV PRN ×2 (09:55→20:24)
[2018-05-26] VITALS (36 sets, daily range): BP systolic 99–154; BP diastolic 60–88
[2018-05-26] MEDS: OSMOLITE 1.2 CAL 1,000 ML LIQUID GT PRN (03:23)
[2018-05-26 05:19] LABS: BASOPHILS % (AUTO) 0.4 % (0.0-2.0); EOSINOPHILS % (AUTO) 5.3 % (0.0-6.0); HEMATOCRIT 34 % (39-51); LYMPHOCYTES # (AUTO) 1.2 /CMM (0.8-4.8); LYMPHOCYTES % (AUTO) 18.5 % (20.0-44.0); MEAN CORPUSCULAR HEMOGLOBIN 27 PG (26.0-33.0); MEAN CORPUSCULAR HGB CONC 32 g/dl (31.0-36.0); MEAN CORPUSCULAR VOLUME 84 fL (80-96); MONOCYTES # (AUTO) 0.6 /CMM (0.1-1.30); MONOCYTES % (AUTO) 8.8 % (2.0-12.0); NEUTROPHILS # (AUTO) 4.3 /CMM (1.8-8.9); PLATELET COUNT (AUTO) 202 /CMM (150-450); RDW COEFFICIENT OF VARIATION 17.6 (11.5-15.0); RED BLOOD CELL COUNT(AUTO) 4.11 MIL/uL (4.5-6.0); WHITE BLOOD COUNT (AUTO) 6.5 K/uL (4.3-11.0)
[2018-05-26] MEDS: SUCRALFATE 1 G/10 ML UDC GT SCH ×4 (05:26→23:48)
[2018-05-26] MEDS: ZOSYN IVPB 4.5 G in IV D5W 50ml IV SCH ×4 (05:26→23:48)
[2018-05-26 05:32] LABS: CALCIUM, SERUM 7.5 mg/dL (8.5-10.1); CARBON DIOXIDE 30 mmol/L (21-32); CHLORIDE 101 mmol/L (98-107); CREATININE 0.5 mg/dL (0.6-1.3); GLUCOSE 120 mg/dL (74-106); POTASSIUM 3.4 mmol/L (3.5-5.1); SODIUM SERUM 134 mmol/L (136-145); UREA NITROGEN, BLOOD 6 mg/dL (7-18)
[2018-05-26] MEDS: IV D5/0.45 NACL 1,000 ML IV PRN ×2 (05:54→20:50)
[2018-05-26] MEDS ORDERED: POTASSIUM CL. PREMIX PERIPHER. 50 ML IV SCH (09:30)
[2018-05-26] MEDS: PANTOPRAZOLE 40 MG VIAL IV SCH ×2 (09:47→20:38)
[2018-05-26] MEDS: Magnesium 1GM/D5W 100ML PREMIX 100 ML IV SCH ×2 (09:51→11:00)
[2018-05-26] MEDS: ACETAMINOPHEN 325 MG TABLET PO PRN (20:38)
[2018-05-27] VITALS (35 sets, daily range): BP systolic 99–162; BP diastolic 49–97
[2018-05-27 05:32] LABS: BASOPHILS % (AUTO) 0.3 % (0.0-2.0); EOSINOPHILS % (AUTO) 2.4 % (0.0-6.0); HEMATOCRIT 38 % (39-51); HEMOGLOBIN 12.1 g/dL (13.5-17.5); LYMPHOCYTES # (AUTO) 1.7 /CMM (0.8-4.8); LYMPHOCYTES % (AUTO) 17.4 % (20.0-44.0); MEAN CORPUSCULAR HEMOGLOBIN 27 PG (26.0-33.0); MEAN CORPUSCULAR HGB CONC 32 g/dl (31.0-36.0); MEAN CORPUSCULAR VOLUME 84 fL (80-96); MONOCYTES # (AUTO) 0.6 /CMM (0.1-1.30); MONOCYTES % (AUTO) 5.8 % (2.0-12.0); NEUTROPHILS # (AUTO) 7.1 /CMM (1.8-8.9); NEUTROPHILS % (AUTO) 74.1 % (43.0-81.0); PLATELET COUNT (AUTO) 206 /CMM (150-450); RDW COEFFICIENT OF VARIATION 17.4 (11.5-15.0); RED BLOOD CELL COUNT(AUTO) 4.47 MIL/uL (4.5-6.0); WHITE BLOOD COUNT (AUTO) 9.5 K/uL (4.3-11.0)
[2018-05-27] MEDS: ZOSYN IVPB 4.5 G in IV D5W 50ml IV SCH ×3 (05:39→17:07)
[2018-05-27] MEDS: SUCRALFATE 1 G/10 ML UDC GT SCH ×3 (05:39→17:07)
[2018-05-27 05:43] LABS: CALCIUM, SERUM 8.2 mg/dL (8.5-10.1); CARBON DIOXIDE 29 mmol/L (21-32); CHLORIDE 101 mmol/L (98-107); CREATININE 0.6 mg/dL (0.6-1.3); GLUCOSE 87 mg/dL (74-106); MAGNESIUM 2.1 mg/dL (1.8-2.4); POTASSIUM 4.9 mmol/L (3.5-5.1); SODIUM SERUM 132 mmol/L (136-145); UREA NITROGEN, BLOOD 8 mg/dL (7-18)
[2018-05-27] MEDS: PANTOPRAZOLE 40 MG VIAL IV SCH ×2 (08:13→21:54)
[2018-05-27] MEDS: IV D5/0.45 NACL 1,000 ML IV PRN ×2 (08:18→17:07)
[2018-05-27] MEDS ORDERED: LIDOCAINE 0.5%-EPI 1:200,000 50 ML VIAL ONE (12:36)
[2018-05-27] MEDS ORDERED: FENTANYL PF 100MCG/2ML AMPUL ONE (12:42)
[2018-05-27] MEDS: MORPHINE SULFATE INJ 2 MG/ML DISP.SYRIN IV PRN (13:15)
[2018-05-28] VITALS (21 sets, daily range): BP systolic 124–144; BP diastolic 63–84
[2018-05-28] MEDS: ZOSYN IVPB 4.5 G in IV D5W 50ml IV SCH ×3 (00:09→12:52)
[2018-05-28] MEDS: SUCRALFATE 1 G/10 ML UDC GT SCH ×4 (00:17→17:13)
[2018-05-28] MEDS: OSMOLITE 1.2 CAL 1,000 ML LIQUID GT PRN (04:55)
[2018-05-28] MEDS: PANTOPRAZOLE 40 MG VIAL IV SCH ×2 (08:11→21:43)
[2018-05-28] MEDS: IV D5/0.45 NACL 1,000 ML IV PRN (08:13)
[2018-05-29] VITALS: BP 131/81
[2018-05-29 04:00] VITALS: BP_SYST 130; BP_SYST 131; BP_DIAS 81; BP_DIAS 84
[2018-05-29] MEDS: SUCRALFATE 1 G/10 ML UDC GT SCH ×4 (05:23→17:33)
[2018-05-29] MEDS: IV D5/0.45 NACL 1,000 ML IV PRN (07:42)
[2018-05-29 08:00] VITALS: BP 113/71
[2018-05-29] MEDS: PANTOPRAZOLE 40 MG VIAL IV SCH ×2 (08:50→20:02)
[2018-05-29 12:00] VITALS: BP 123/68
[2018-05-29 16:00] VITALS: BP 128/75
[2018-05-29 20:00] VITALS: BP 134/79
[2018-05-29] MEDS: ACETAMINOPHEN 325 MG TABLET PO PRN (20:02)
[2018-05-29] MEDS: OSMOLITE 1.2 CAL 1,000 ML LIQUID GT PRN (20:44)
[2018-05-30] VITALS: BP 147/67
[2018-05-30] MEDS: SUCRALFATE 1 G/10 ML UDC GT SCH ×4 (00:54→18:41)
[2018-05-30 04:00] VITALS: BP 154/70
[2018-05-30 08:00] VITALS: BP_SYST 136; BP_SYST 162; BP_DIAS 89
[2018-05-30 08:51] LABS: ABG BASE EXCESS 3.6 mmol/L; ABG OXYGEN SATURATION 98.2 % (92.0-98.5); ABG PCO2 38.1 mmHg (35.0-45.0); ABG PH 7.473 (7.350-7.450); ABG PO2 144.5 mmHg (75.0-100.0); AaDO2 96.9 mmHg; COHb 0.3 % (0.5-1.5); MetHb 0.6 % (0.0-1.5); O2Hb 97.3 % (94.0-97.0); SITE, ABG Left Radial; VENT MODE, BG SIMV 4 500 PS 12 40% +5
[2018-05-30] MEDS: PANTOPRAZOLE 40 MG VIAL IV SCH ×2 (09:29→20:13)
[2018-05-30] MEDS ORDERED: OSMOLITE 1.2 CAL 1,000 ML LIQUID GT PRN (11:30)
[2018-05-30 12:00] VITALS: BP 124/88
[2018-05-30 16:00] VITALS: BP 138/87
[2018-05-30] MEDS: OSMOLITE 1.2 CAL 1,000 ML LIQUID GT PRN (18:41)
[2018-05-30 20:00] VITALS: BP 139/80
[2018-05-31] VITALS: BP 143/70
[2018-05-31] MEDS: SUCRALFATE 1 G/10 ML UDC GT SCH ×4 (00:16→17:07)
[2018-05-31] MEDS: ACETAMINOPHEN 325 MG TABLET PO PRN (01:35)
[2018-05-31 04:00] VITALS: BP 128/71
[2018-05-31 08:00] VITALS: BP 131/71
[2018-05-31] MEDS: PANTOPRAZOLE 40 MG VIAL IV SCH ×2 (09:11→21:35)
[2018-05-31 11:16] LABS: ABG BASE EXCESS 4.9 mmol/L; ABG OXYGEN SATURATION 96.6 % (92.0-98.5); ABG PCO2 36.3 mmHg (35.0-45.0); ABG PH 7.506 (7.350-7.450); ABG PO2 88.5 mmHg (75.0-100.0); AaDO2 118.9 mmHg; COHb 0.1 % (0.5-1.5); MetHb 0.6 % (0.0-1.5); O2Hb 95.9 % (94.0-97.0); SITE, ABG Right Radial; VENT MODE, BG COOL AEROSOL 35%
[2018-05-31 12:00] VITALS: BP 119/77
[2018-05-31 16:00] VITALS: BP 130/67
[2018-05-31 20:00] VITALS: BP 122/75
[2018-05-31] MEDS: OSMOLITE 1.2 CAL 1,000 ML LIQUID GT PRN (21:41)
[2018-06-01] VITALS (8 sets, daily range): BP systolic 114–136; BP diastolic 63–79
[2018-06-01] MEDS: SUCRALFATE 1 G/10 ML UDC GT SCH ×5 (00:21→23:55)
[2018-06-01] MEDS: PANTOPRAZOLE 40 MG VIAL IV SCH ×2 (09:08→21:38)
[2018-06-01] MEDS: ACETAMINOPHEN 325 MG TABLET PO PRN (11:30)
[2018-06-01 12:11] LABS: BASOPHILS % (AUTO) 0.1 % (0.0-2.0); EOSINOPHILS % (AUTO) 0.3 % (0.0-6.0); HEMATOCRIT 35 % (39-51); HEMOGLOBIN 11.3 g/dL (13.5-17.5); LYMPHOCYTES # (AUTO) 0.7 /CMM (0.8-4.8); LYMPHOCYTES % (AUTO) 6.7 % (20.0-44.0); MEAN CORPUSCULAR HEMOGLOBIN 26 PG (26.0-33.0); MEAN CORPUSCULAR HGB CONC 32 g/dl (31.0-36.0); MEAN CORPUSCULAR VOLUME 82 fL (80-96); MONOCYTES # (AUTO) 0.5 /CMM (0.1-1.30); MONOCYTES % (AUTO) 4.8 % (2.0-12.0); NEUTROPHILS # (AUTO) 9.6 /CMM (1.8-8.9); NEUTROPHILS % (AUTO) 88.1 % (43.0-81.0); PLATELET COUNT (AUTO) 298 /CMM (150-450); RDW COEFFICIENT OF VARIATION 17.7 (11.5-15.0); RED BLOOD CELL COUNT(AUTO) 4.34 MIL/uL (4.5-6.0); WHITE BLOOD COUNT (AUTO) 10.9 K/uL (4.3-11.0)
[2018-06-01 12:27] LABS: ABG BASE EXCESS 3.5 mmol/L; ABG OXYGEN SATURATION 93.6 % (92.0-98.5); ABG PH 7.525 (7.350-7.450); ABG PO2 68.9 mmHg (75.0-100.0); AaDO2 179.5 mmHg; COHb 0.3 % (0.5-1.5); MetHb 0.7 % (0.0-1.5); O2Hb 92.7 % (94.0-97.0); SITE, ABG Right Radial; VENT MODE, BG COOL AERO 40%
[2018-06-01 12:39] LABS: CALCIUM, SERUM 8.4 mg/dL (8.5-10.1); CARBON DIOXIDE 26 mmol/L (21-32); CHLORIDE 97 mmol/L (98-107); CREATININE 0.7 mg/dL (0.6-1.3); GLUCOSE 154 mg/dL (74-106); POTASSIUM 4.3 mmol/L (3.5-5.1); SODIUM SERUM 130 mmol/L (136-145); UREA NITROGEN, BLOOD 14 mg/dL (7-18)
[2018-06-02] VITALS: BP 116/75
[2018-06-02 04:00] VITALS: BP 118/71
[2018-06-02 05:46] LABS: BASOPHILS % (AUTO) 0.2 % (0.0-2.0); EOSINOPHILS % (AUTO) 2.1 % (0.0-6.0); HEMATOCRIT 35 % (39-51); HEMOGLOBIN 11.2 g/dL (13.5-17.5); LYMPHOCYTES # (AUTO) 1.2 /CMM (0.8-4.8); LYMPHOCYTES % (AUTO) 13.3 % (20.0-44.0); MEAN CORPUSCULAR HEMOGLOBIN 26 PG (26.0-33.0); MEAN CORPUSCULAR HGB CONC 32 g/dl (31.0-36.0); MEAN CORPUSCULAR VOLUME 83 fL (80-96); MONOCYTES # (AUTO) 0.8 /CMM (0.1-1.30); MONOCYTES % (AUTO) 8.2 % (2.0-12.0); NEUTROPHILS % (AUTO) 76.2 % (43.0-81.0); PLATELET COUNT (AUTO) 268 /CMM (150-450); RDW COEFFICIENT OF VARIATION 17.8 (11.5-15.0); RED BLOOD CELL COUNT(AUTO) 4.28 MIL/uL (4.5-6.0); WHITE BLOOD COUNT (AUTO) 9.2 K/uL (4.3-11.0)
[2018-06-02 05:56] LABS: CARBON DIOXIDE 29 mmol/L (21-32); CHLORIDE 100 mmol/L (98-107); CREATININE 0.6 mg/dL (0.6-1.3); GLUCOSE 134 mg/dL (74-106); POTASSIUM 4.2 mmol/L (3.5-5.1); SODIUM SERUM 135 mmol/L (136-145); UREA NITROGEN, BLOOD 16 mg/dL (7-18)
[2018-06-02] MEDS: SUCRALFATE 1 G/10 ML UDC GT SCH ×4 (06:35→23:06)
[2018-06-02] MEDS: OSMOLITE 1.2 CAL 1,000 ML LIQUID GT PRN ×2 (06:36→23:00)
[2018-06-02 08:00] VITALS: BP_SYST 120; BP_SYST 140; BP_DIAS 59; BP_DIAS 71
[2018-06-02] MEDS: PANTOPRAZOLE 40 MG VIAL IV SCH ×2 (09:01→22:11)
[2018-06-02] MEDS: ACETAMINOPHEN 325 MG TABLET PO PRN (11:37)
[2018-06-02 12:00] VITALS: BP 158/86
[2018-06-02] MEDS: PIPERACILLIN /TAZOBACTAM 3.375 G in IV D5W 50 ML IV SCH ×3 (14:27→23:06)
[2018-06-02 16:00] VITALS: BP 118/74
[2018-06-02 20:00] VITALS: BP 108/67
[2018-06-03] VITALS (7 sets, daily range): BP systolic 114–137; BP diastolic 66–77
[2018-06-03] MEDS: PIPERACILLIN /TAZOBACTAM 3.375 G in IV D5W 50 ML IV SCH ×4 (05:44→23:07)
[2018-06-03] MEDS: SUCRALFATE 1 G/10 ML UDC GT SCH ×4 (05:44→23:07)
[2018-06-03 06:34] LABS: BASOPHILS % (AUTO) 0.2 % (0.0-2.0); EOSINOPHILS % (AUTO) 1.9 % (0.0-6.0); HEMATOCRIT 33 % (39-51); HEMOGLOBIN 10.6 g/dL (13.5-17.5); LYMPHOCYTES # (AUTO) 1.1 /CMM (0.8-4.8); LYMPHOCYTES % (AUTO) 11.7 % (20.0-44.0); MEAN CORPUSCULAR HEMOGLOBIN 27 PG (26.0-33.0); MEAN CORPUSCULAR HGB CONC 33 g/dl (31.0-36.0); MEAN CORPUSCULAR VOLUME 82 fL (80-96); MONOCYTES # (AUTO) 0.7 /CMM (0.1-1.30); MONOCYTES % (AUTO) 7.5 % (2.0-12.0); NEUTROPHILS # (AUTO) 7.7 /CMM (1.8-8.9); NEUTROPHILS % (AUTO) 78.7 % (43.0-81.0); PLATELET COUNT (AUTO) 273 /CMM (150-450); RDW COEFFICIENT OF VARIATION 17.5 (11.5-15.0); RED BLOOD CELL COUNT(AUTO) 3.96 MIL/uL (4.5-6.0); WHITE BLOOD COUNT (AUTO) 9.7 K/uL (4.3-11.0)
[2018-06-03 06:51] LABS: CALCIUM, SERUM 8.7 mg/dL (8.5-10.1); CARBON DIOXIDE 29 mmol/L (21-32); CHLORIDE 100 mmol/L (98-107); CREATININE 0.6 mg/dL (0.6-1.3); GLUCOSE 140 mg/dL (74-106); POTASSIUM 3.9 mmol/L (3.5-5.1); SODIUM SERUM 135 mmol/L (136-145); UREA NITROGEN, BLOOD 18 mg/dL (7-18)
[2018-06-03] MEDS: PANTOPRAZOLE 40 MG VIAL IV SCH ×2 (08:13→20:54)
[2018-06-03] MEDS: ACETAMINOPHEN 325 MG TABLET PO PRN (11:42)
[2018-06-03] MEDS: OSMOLITE 1.2 CAL 1,000 ML LIQUID GT PRN (17:43)
[2018-06-03 18:29] LABS: APPEARANCE,URINE CLOUDY (CLEAR); BILIRUBIN,URINE NEGATIVE (NEGATIVE); BLOOD, URINE 3+ Ery/uL (NEGATIVE); COLOR,URINE DARK YELLO (YELLOW); KETONES,URINE NEGATIVE (NEGATIVE); LEUKOCYTE ESTERASE ,URINE TRACE (NEGATIVE); NITRITE, URINE POSITIVE (NEGATIVE); PROTEIN,URINE 1+ mg/dl (NEGATIVE); UGLUCOSE NEGATIVE (NEGATIVE); UROBILINOGEN,URINE 0.2 EU/dL (0.2)
[2018-06-03 19:17] LABS: BACTERIA,URINE 1+ /HPF (None Seen); RBC,URINE TOO NUMEROUS TO COUN /HPF (0-2); SQUAMOUS EPITHELIAL CELL,UR None Seen /HPF (None Seen); WBC,URINE 0-2 /HPF (0-3)
[2018-06-03] MEDS: HYDROCODONE/APAP 5/325MG 1 EACH TABLET PO PRN (20:55)
[2018-06-04] VITALS (7 sets, daily range): BP systolic 126–147; BP diastolic 62–86
[2018-06-04] MEDS: HYDROCODONE/APAP 5/325MG 1 EACH TABLET PO PRN ×3 (04:01→19:58)
[2018-06-04] MEDS: PIPERACILLIN /TAZOBACTAM 3.375 G in IV D5W 50 ML IV SCH ×3 (05:19→17:14)
[2018-06-04] MEDS: SUCRALFATE 1 G/10 ML UDC GT SCH ×3 (05:19→17:14)
[2018-06-04] MEDS: ACETAMINOPHEN 325 MG TABLET PO PRN (08:07)
[2018-06-04] MEDS: PANTOPRAZOLE 40 MG VIAL IV SCH ×2 (08:07→21:17)
[2018-06-04] MEDS: OSMOLITE 1.2 CAL 1,000 ML LIQUID GT PRN (09:16)
[2018-06-05] VITALS (7 sets, daily range): BP systolic 104–129; BP diastolic 46–87
[2018-06-05] MEDS: PIPERACILLIN /TAZOBACTAM 3.375 G in IV D5W 50 ML IV SCH ×3 (00:16→11:01)
[2018-06-05] MEDS: OSMOLITE 1.2 CAL 1,000 ML LIQUID GT PRN (00:27)
[2018-06-05] MEDS: HYDROCODONE/APAP 5/325MG 1 EACH TABLET PO PRN ×2 (00:28→05:45)
[2018-06-05] MEDS: SUCRALFATE 1 G/10 ML UDC GT SCH ×3 (00:28→11:00)
[2018-06-05] MEDS: ACETAMINOPHEN 325 MG TABLET PO PRN ×2 (00:28→08:59)
[2018-06-05] MEDS: PANTOPRAZOLE 40 MG VIAL IV SCH (08:59)
== END 2018-06-05 16:36 | DRG 4 ==
LOC: ER 19:30 → TELE1 21:28 → ICU 21:30 → TELE-TD 05-28 11:57 → TELE1 05-29 15:21
PROVIDERS: ADMIT Legal Medicine; ATTEND Legal Medicine
PROC: 5A1955Z Respiratory Ventilation, Greater than 96 Consecutive Hours (ICD-10-PCS; 2018-05-18)
PROC: 0BH18EZ Insertion of Endotracheal Airway into Trachea, Via Natural or Artificial Opening Endoscopic (ICD-10-PCS; 2018-05-18)
PROC: 30233N1 Transfusion of Nonautologous Red Blood Cells into Peripheral Vein, Percutaneous Approach (ICD-10-PCS; 2018-05-19)
PROC: 0B110F4 Bypass Trachea to Cutaneous with Tracheostomy Device, Open Approach (ICD-10-PCS; principal; 2018-05-27 12:45)
DX: A41.9 Sepsis, unspecified organism (principal); E43 Unspecified severe protein-calorie malnutrition; J69.0 Pneumonitis due to inhalation of food and vomit; J96.01 Acute respiratory failure with hypoxia; R65.21 Severe sepsis with septic shock; R53.2 Functional quadriplegia; G93.41 Metabolic encephalopathy; J15.0 Pneumonia due to Klebsiella pneumoniae; D68.59 Other primary thrombophilia; E87.1 Hypo-osmolality and hyponatremia; K92.2 Gastrointestinal hemorrhage, unspecified; Z99.11 Dependence on respirator [ventilator] status; Z93.1 Gastrostomy status; F03.90 Unspecified dementia, unspecified severity, without behavioral disturbance, psychotic disturbance, mood disturbance, and anxiety; E03.9 Hypothyroidism, unspecified; E11.9 Type 2 diabetes mellitus without complications; E78.5 Hyperlipidemia, unspecified; E87.6 Hypokalemia; I10 Essential (primary) hypertension; M19.90 Unspecified osteoarthritis, unspecified site; Z87.01 Personal history of pneumonia (recurrent); L89.320 Pressure ulcer of left buttock, unstageable; E88.09 Other disorders of plasma-protein metabolism, not elsewhere classified; M62.50 Muscle wasting and atrophy, not elsewhere classified, unspecified site; R13.10 Dysphagia, unspecified; D50.0 Iron deficiency anemia secondary to blood loss (chronic); R62.7 Adult failure to thrive; G30.9 Alzheimer's disease, unspecified; F02.80 Dementia in other diseases classified elsewhere, unspecified severity, without behavioral disturbance, psychotic disturbance, mood disturbance, and anxiety; L90.5 Scar conditions and fibrosis of skin; F09 Unspecified mental disorder due to known physiological condition
CPT/HCPCS: 31720; 36415; 36600; 71045-TC; 71250-TC; 80048-TC; 80061-TC; 80076-TC; 80202-TC; 81000-TC; 82272-TC; 82803-TC; 83605-TC; 83735-TC; 84100-TC; 84439-TC; 84443-TC; 84480; 84484-TC; 85025-TC; 85610-TC; 85730-TC; 86850-TC; 86921-TC; 87040-TC; 87070-TC; 87081-TC; 87086-TC; 87186-TC; 94002-TC; 94003-TC; 94640-TC; 94760-TC; 94762-TC; 99082-TC; A4216; A4606; A6402; A7526; C9113; J0692; J2270; J2405; J2543; J3010; J3370; J3475; J3480; J3490; J7030; J7050; J7060; P9016-BL; Z7610

== ENCOUNTER 2018-12-19 16:58 | Inpatient (IN) | payer MEDICARE, MEDICAID ==
[~2018-12-19] VITALS: Ht 170.2 cm; Wt 59.4 kg
[2018-12-19] MEDS ORDERED: IV NS 0.9% 250 ML BAG IV ONE (17:30)
[2018-12-19 17:36] LABS: BASOPHILS % (AUTO) 0.2 % (0.0-2.0); EOSINOPHILS % (AUTO) 7.6 % (0.0-6.0); HEMATOCRIT 21 % (39-51); LYMPHOCYTES # (AUTO) 1.3 /CMM (0.8-4.8); MEAN CORPUSCULAR HGB CONC 31 g/dl (31.0-36.0); MEAN CORPUSCULAR VOLUME 84 fL (80-96); MONOCYTES # (AUTO) 0.6 /CMM (0.1-1.30); MONOCYTES % (AUTO) 10.8 % (2.0-12.0); NEUTROPHILS # (AUTO) 2.9 /CMM (1.8-8.9); NEUTROPHILS % (AUTO) 55.4 % (43.0-81.0); PLATELET COUNT (AUTO) 287 /CMM (150-450); RED BLOOD CELL COUNT(AUTO) 2.52 MIL/uL (4.5-6.0); WHITE BLOOD COUNT (AUTO) 5.2 K/uL (4.3-11.0)
[2018-12-19 17:39] LABS: HEMOGLOBIN 6.6 g/dL (13.5-17.5)
[2018-12-19 17:47] VITALS: BP 130/75
[2018-12-19 17:51] LABS: CALCIUM, SERUM 8.6 mg/dL (8.5-10.1); CARBON DIOXIDE 29 mmol/L (21-32); CHLORIDE 104 mmol/L (98-107); CREATININE 0.6 mg/dL (0.6-1.3); GLUCOSE 89 mg/dL (74-106); POTASSIUM 3.9 mmol/L (3.5-5.1); SODIUM SERUM 139 mmol/L (136-145); UREA NITROGEN, BLOOD 16 mg/dL (7-18)
[2018-12-19 18:05] LABS: ALANINE AMINOTRANSFERASE 23 U/L (12-78); ALBUMIN 2.7 g/dL (3.4-5.0); ALKALINE PHOSPHATASE 112 U/L (46-116); ASPARTATE AMINOTRANSFERASE 26 U/L (15-37); B-TYPE NATRIURETIC PEPTIDE 141 PG/ML (0-125); BILIRUBIN,DIRECT 0.1 mg/dL (0.0-0.2); BILIRUBIN,TOTAL 0.1 mg/dL (0.2-1.0); TOTAL PROTEIN, SERUM 6.7 g/dL (6.4-8.2)
[2018-12-19] MEDS ORDERED: ACET-2605 GT (18:09)
[2018-12-19] MEDS ORDERED: ACET-868 GT ×2 (18:09)
[2018-12-19] MEDS ORDERED: IPRA3AMP23 IH (18:09)
[2018-12-19] MEDS ORDERED: HYDR-4384 GT (18:09)
[2018-12-19] MEDS ORDERED: NUTR150016 GT (18:09)
[2018-12-19] MEDS ORDERED: MULT-447 GT (18:09)
[2018-12-19] MEDS ORDERED: CARV3.122 GT (18:09)
[2018-12-19] MEDS ORDERED: ASPI-1169 GT (18:09)
[2018-12-19 18:35] LABS: EOSINOPHILS % (MANUAL) 8 % (0-4); LYMPHOCYTES % (MANUAL) 24 % (16-48); MONOCYTES % (MANUAL) 7 % (0-11.0); NEUTROPHILS % (MANUAL) 61 (42-76)
[2018-12-19 18:46] LABS: APPEARANCE,URINE Clear (CLEAR); BILIRUBIN,URINE Negative (NEGATIVE); BLOOD, URINE Negative Ery/uL (NEGATIVE); COLOR,URINE Yellow (YELLOW); KETONES,URINE Negative (NEGATIVE); LEUKOCYTE ESTERASE ,URINE Trace (NEGATIVE); NITRITE, URINE Positive (NEGATIVE); PROTEIN,URINE Negative (NEGATIVE); UGLUCOSE Negative (NEGATIVE); UROBILINOGEN,URINE 0.2 EU/dL (0.2)
[2018-12-19 19:00] LABS: BACTERIA,URINE Many /HPF (None Seen); RBC,URINE 0-2 /HPF (0-2); SQUAMOUS EPITHELIAL CELL,UR Few /HPF (None Seen)
[2018-12-19] MEDS ORDERED: PANTOPRAZOLE 80 MG in IV NS 0.9% 500 ML IV ONE (19:00)
[2018-12-19] MEDS ORDERED: CEFTRIAXONE 1GM BAG (ER ONLY) 1 GM/50 ML PIGGYBACK IV ONE (19:30)
[2018-12-19] MEDS ORDERED: CEFTRIAXONE 1GM BAG (ER ONLY) 50 ML IV ONE (19:33)
[2018-12-19 19:40] VITALS: BP 144/68
[2018-12-19] MEDS ORDERED: Medication Not On Formulary EA (Ipratropium/Albuterol Sulfate (Duoneb 2.5-0.5 Mg/3 Ml So IH PRN (20:00)
[2018-12-19] MEDS ORDERED: ALBUTEROL FS 2.5 MG/0.5 ML VIAL.NEB NEB PRN (20:30)
[2018-12-19] MEDS ORDERED: IPRATROPIUM NEB FS 0.5 MG/2.5 ML AMPUL.NEB NEB PRN (20:30)
[2018-12-19 20:33] VITALS: BP 127/79
[2018-12-19] MEDS: ALBUTEROL FS 2.5 MG/0.5 ML VIAL.NEB NEB SCH (20:52)
[2018-12-19] MEDS ORDERED: ONDANSETRON HCL/PF 4 MG/2 ML VIAL IV PRN (21:00)
[2018-12-19] MEDS ORDERED: ACETAMINOPHEN 650 MG/20.3 ML UDC GT PRN (21:00)
[2018-12-19] MEDS ORDERED: LORAZEPAM INJ 2 MG/ML VIAL IV PRN (21:00)
[2018-12-19] MEDS: CARVEDILOL 3.125 MG TABLET GT SCH (21:56)
[2018-12-19 22:55] VITALS: BP 127/79
[2018-12-19 23:10] VITALS: BP 126/56
[2018-12-19 23:40] VITALS: BP 125/62
[2018-12-20] VITALS (15 sets, daily range): BP systolic 95–130; BP diastolic 46–82
[2018-12-20] MEDS: ALBUTEROL FS 2.5 MG/0.5 ML VIAL.NEB NEB SCH ×4 (00:55→19:15)
[2018-12-20] MEDS: IPRATROPIUM NEB FS 0.5 MG/2.5 ML AMPUL.NEB NEB SCH ×4 (00:55→19:15)
[2018-12-20] MEDS ORDERED: Medication Not On Formulary EA (Ipratropium/Albuterol Sulfate (Duoneb 2.5-0.5 Mg/3 Ml So HHN SCH (01:30)
[2018-12-20] MEDS ORDERED: PANTOPRAZOLE 40 MG VIAL ONE (05:05)
[2018-12-20] MEDS: PANTOPRAZOLE 80 MG in IV NS 0.9% 500 ML IV PRN ×2 (05:18→15:11)
[2018-12-20 08:03] LABS: BASOPHILS % (AUTO) 0.4 % (0.0-2.0); EOSINOPHILS % (AUTO) 4.9 % (0.0-6.0); LYMPHOCYTES # (AUTO) 1.5 /CMM (0.8-4.8); LYMPHOCYTES % (AUTO) 21.7 % (20.0-44.0); MEAN CORPUSCULAR HGB CONC 32 g/dl (31.0-36.0); MEAN CORPUSCULAR VOLUME 82 fL (80-96); MONOCYTES # (AUTO) 0.6 /CMM (0.1-1.30); MONOCYTES % (AUTO) 9.5 % (2.0-12.0); NEUTROPHILS # (AUTO) 4.3 /CMM (1.8-8.9); NEUTROPHILS % (AUTO) 63.5 % (43.0-81.0); RED BLOOD CELL COUNT(AUTO) 4.02 MIL/uL (4.5-6.0)
[2018-12-20] MEDS: CARVEDILOL 3.125 MG TABLET GT SCH ×2 (09:00→21:18)
[2018-12-20 10:56] LABS: HEMOGLOBIN 9.4 g/dL (13.5-17.5); WHITE BLOOD COUNT (AUTO) 5.9 K/uL (4.3-11.0)
[2018-12-20 10:57] LABS: HEMATOCRIT 29 % (39-51); PLATELET COUNT (AUTO) 244 /CMM (150-450)
[2018-12-20] MEDS: IV D5/ 0.9% NACL 1,000 ML IV PRN (17:41)
[2018-12-21] VITALS: BP 94/50
[2018-12-21] MEDS: PANTOPRAZOLE 80 MG in IV NS 0.9% 500 ML IV PRN (00:57)
[2018-12-21] MEDS: IPRATROPIUM NEB FS 0.5 MG/2.5 ML AMPUL.NEB NEB SCH ×4 (01:44→19:18)
[2018-12-21] MEDS: ALBUTEROL FS 2.5 MG/0.5 ML VIAL.NEB NEB SCH ×4 (01:44→19:18)
[2018-12-21 04:00] VITALS: BP 139/68
[2018-12-21] MEDS: IV D5/ 0.9% NACL 1,000 ML IV PRN ×2 (07:29→22:22)
[2018-12-21 08:00] VITALS: BP 95/62
[2018-12-21] MEDS: CARVEDILOL 3.125 MG TABLET GT SCH ×2 (09:00→20:28)
[2018-12-21 11:36] LABS: BASOPHILS % (AUTO) 0.4 % (0.0-2.0); EOSINOPHILS % (AUTO) 3.4 % (0.0-6.0); HEMATOCRIT 26 % (39-51); HEMOGLOBIN 8.4 g/dL (13.5-17.5); LYMPHOCYTES # (AUTO) 0.9 /CMM (0.8-4.8); LYMPHOCYTES % (AUTO) 20.7 % (20.0-44.0); MEAN CORPUSCULAR HGB CONC 33 g/dl (31.0-36.0); MEAN CORPUSCULAR VOLUME 81 fL (80-96); MONOCYTES # (AUTO) 0.4 /CMM (0.1-1.30); MONOCYTES % (AUTO) 9.7 % (2.0-12.0); NEUTROPHILS # (AUTO) 2.9 /CMM (1.8-8.9); NEUTROPHILS % (AUTO) 65.8 % (43.0-81.0); PLATELET COUNT (AUTO) 220 /CMM (150-450); RED BLOOD CELL COUNT(AUTO) 3.17 MIL/uL (4.5-6.0); WHITE BLOOD COUNT (AUTO) 4.4 K/uL (4.3-11.0)
[2018-12-21 11:45] LABS: CALCIUM, SERUM 7.8 mg/dL (8.5-10.1); CARBON DIOXIDE 22 mmol/L (21-32); CHLORIDE 109 mmol/L (98-107); CREATININE 0.6 mg/dL (0.6-1.3); GLUCOSE 85 mg/dL (74-106); POTASSIUM 3.4 mmol/L (3.5-5.1); SODIUM SERUM 140 mmol/L (136-145); UREA NITROGEN, BLOOD 8 mg/dL (7-18)
[2018-12-21 11:51] LABS: ALANINE AMINOTRANSFERASE 20 U/L (12-78); ALBUMIN 2.2 g/dL (3.4-5.0); ALKALINE PHOSPHATASE 82 U/L (46-116); ASPARTATE AMINOTRANSFERASE 25 U/L (15-37); BILIRUBIN,TOTAL 0.4 mg/dL (0.2-1.0); TOTAL PROTEIN, SERUM 5.6 g/dL (6.4-8.2)
[2018-12-21 12:00] VITALS: BP 137/64
[2018-12-21] MEDS ORDERED: MEROPENEM 500 MG in IV NS 0.9% 50 ML IV SCH (13:00)
[2018-12-21] MEDS ORDERED: POTASSIUM CHLORIDE 20 MEQ POWDER PACKET GT ONE (13:23)
[2018-12-21] MEDS: PANTOPRAZOLE 40 MG VIAL IV SCH (13:56)
[2018-12-21] MEDS: MEROPENEM 1 G in IV NS 0.9% 100 ML IV SCH ×2 (14:12→20:28)
[2018-12-21 16:00] VITALS: BP 119/67
[2018-12-21 20:00] VITALS: BP 105/49
[2018-12-21] MEDS ORDERED: MEROPENEM 1 G VIAL IV ONE (20:26)
[2018-12-22] VITALS (7 sets, daily range): BP systolic 121–151; BP diastolic 53–79
[2018-12-22] MEDS: PANTOPRAZOLE 40 MG VIAL IV SCH ×2 (00:45→12:42)
[2018-12-22] MEDS: ALBUTEROL FS 2.5 MG/0.5 ML VIAL.NEB NEB SCH ×4 (01:37→19:47)
[2018-12-22] MEDS: IPRATROPIUM NEB FS 0.5 MG/2.5 ML AMPUL.NEB NEB SCH ×4 (01:37→19:46)
[2018-12-22 03:48] LABS: OCCULT BLOOD STOOL POSITIVE (NEGATIVE)
[2018-12-22] MEDS ORDERED: MEROPENEM 1 G VIAL IV ONE (04:15)
[2018-12-22] MEDS: MEROPENEM 1 G in IV NS 0.9% 100 ML IV SCH ×3 (04:17→20:41)
[2018-12-22 06:35] LABS: BASOPHILS % (AUTO) 0.6 % (0.0-2.0); EOSINOPHILS % (AUTO) 3.2 % (0.0-6.0); HEMATOCRIT 28 % (39-51); HEMOGLOBIN 9.1 g/dL (13.5-17.5); LYMPHOCYTES # (AUTO) 0.8 /CMM (0.8-4.8); LYMPHOCYTES % (AUTO) 14.3 % (20.0-44.0); MEAN CORPUSCULAR HGB CONC 32 g/dl (31.0-36.0); MEAN CORPUSCULAR VOLUME 82 fL (80-96); MONOCYTES # (AUTO) 0.4 /CMM (0.1-1.30); MONOCYTES % (AUTO) 8.3 % (2.0-12.0); NEUTROPHILS % (AUTO) 73.6 % (43.0-81.0); PLATELET COUNT (AUTO) 210 /CMM (150-450); RED BLOOD CELL COUNT(AUTO) 3.42 MIL/uL (4.5-6.0); WHITE BLOOD COUNT (AUTO) 5.4 K/uL (4.3-11.0)
[2018-12-22 07:00] LABS: CALCIUM, SERUM 8.1 mg/dL (8.5-10.1); CARBON DIOXIDE 24 mmol/L (21-32); CHLORIDE 109 mmol/L (98-107); CREATININE 0.6 mg/dL (0.6-1.3); GLUCOSE 86 mg/dL (74-106); MAGNESIUM 1.8 mg/dL (1.8-2.4); PHOSPHORUS 2.5 mg/dL (2.5-4.9); POTASSIUM 3.8 mmol/L (3.5-5.1); SODIUM SERUM 142 mmol/L (136-145); UREA NITROGEN, BLOOD 5 mg/dL (7-18)
[2018-12-22] MEDS: CARVEDILOL 3.125 MG TABLET GT SCH ×2 (09:36→21:20)
[2018-12-22] MEDS: IV D5/ 0.9% NACL 1,000 ML IV PRN (18:23)
[2018-12-23] VITALS: BP 127/57
[2018-12-23] MEDS: ALBUTEROL FS 2.5 MG/0.5 ML VIAL.NEB NEB SCH ×4 (00:36→20:08)
[2018-12-23] MEDS: IPRATROPIUM NEB FS 0.5 MG/2.5 ML AMPUL.NEB NEB SCH ×4 (00:36→20:08)
[2018-12-23] MEDS: PANTOPRAZOLE 40 MG VIAL IV SCH ×2 (02:15→15:33)
[2018-12-23 04:00] VITALS: BP 133/54
[2018-12-23] MEDS: MEROPENEM 1 G in IV NS 0.9% 100 ML IV SCH ×3 (04:09→20:38)
[2018-12-23] MEDS: IV D5/ 0.9% NACL 1,000 ML IV PRN (06:16)
[2018-12-23 08:00] VITALS: BP 151/74
[2018-12-23] MEDS: CARVEDILOL 3.125 MG TABLET GT SCH ×2 (10:03→20:39)
[2018-12-23 12:00] VITALS: BP 145/39
[2018-12-23] MEDS ORDERED: JEVITY 1.2 CAL 1,000 ML BOTTLE GT PRN (13:30)
[2018-12-23 16:00] VITALS: BP 119/48
[2018-12-23 20:00] VITALS: BP 95/45
[2018-12-24] VITALS: BP 129/75
[2018-12-24] MEDS: ALBUTEROL FS 2.5 MG/0.5 ML VIAL.NEB NEB SCH ×3 (01:59→13:46)
[2018-12-24] MEDS: IPRATROPIUM NEB FS 0.5 MG/2.5 ML AMPUL.NEB NEB SCH ×3 (01:59→13:45)
[2018-12-24] MEDS: PANTOPRAZOLE 40 MG VIAL IV SCH (02:05)
[2018-12-24] MEDS: IV D5/ 0.9% NACL 1,000 ML IV PRN (02:37)
[2018-12-24] MEDS: MEROPENEM 1 G in IV NS 0.9% 100 ML IV SCH (03:14)
[2018-12-24 04:00] VITALS: BP 146/74
[2018-12-24 07:35] LABS: BASOPHILS % (AUTO) 0.5 % (0.0-2.0); EOSINOPHILS % (AUTO) 3.8 % (0.0-6.0); HEMATOCRIT 30 % (39-51); HEMOGLOBIN 9.8 g/dL (13.5-17.5); LYMPHOCYTES % (AUTO) 22.5 % (20.0-44.0); MEAN CORPUSCULAR HGB CONC 33 g/dl (31.0-36.0); MEAN CORPUSCULAR VOLUME 82 fL (80-96); MONOCYTES # (AUTO) 0.4 /CMM (0.1-1.30); MONOCYTES % (AUTO) 10.3 % (2.0-12.0); NEUTROPHILS # (AUTO) 2.7 /CMM (1.8-8.9); NEUTROPHILS % (AUTO) 62.9 % (43.0-81.0); PLATELET COUNT (AUTO) 233 /CMM (150-450); RED BLOOD CELL COUNT(AUTO) 3.66 MIL/uL (4.5-6.0); WHITE BLOOD COUNT (AUTO) 4.3 K/uL (4.3-11.0)
[2018-12-24 07:54] LABS: CALCIUM, SERUM 8.1 mg/dL (8.5-10.1); CARBON DIOXIDE 26 mmol/L (21-32); CHLORIDE 107 mmol/L (98-107); CREATININE 0.6 mg/dL (0.6-1.3); GLUCOSE 122 mg/dL (74-106); POTASSIUM 3.6 mmol/L (3.5-5.1); SODIUM SERUM 142 mmol/L (136-145); UREA NITROGEN, BLOOD 7 mg/dL (7-18)
[2018-12-24 08:00] VITALS: BP 139/76
[2018-12-24 08:04] LABS: MAGNESIUM 1.8 mg/dL (1.8-2.4)
[2018-12-24] MEDS: CARVEDILOL 3.125 MG TABLET GT SCH (09:00)
[2018-12-24] MEDS ORDERED: PNEUMOCOCCAL 23-VAL P-SAC VAC 0.5 ML VIAL SQ ONE (11:00)
[2018-12-24 16:00] VITALS: BP 92/48
== END 2018-12-24 16:58 | DRG 870 ==
LOC: ER 17:07 → TELE-TD 19:36 → TELE1 12-20 11:43
PROVIDERS: ADMIT Legal Medicine; ATTEND Legal Medicine
PROC: 5A1955Z Respiratory Ventilation, Greater than 96 Consecutive Hours (ICD-10-PCS; principal; 2018-12-19)
PROC: 30233N1 Transfusion of Nonautologous Red Blood Cells into Peripheral Vein, Percutaneous Approach (ICD-10-PCS; 2018-12-19)
DX: A41.51 Sepsis due to Escherichia coli [E. coli] (principal); R53.2 Functional quadriplegia; E43 Unspecified severe protein-calorie malnutrition; N39.0 Urinary tract infection, site not specified; K92.2 Gastrointestinal hemorrhage, unspecified; G93.40 Encephalopathy, unspecified; J96.11 Chronic respiratory failure with hypoxia; Z99.11 Dependence on respirator [ventilator] status; D62 Acute posthemorrhagic anemia; D64.9 Anemia, unspecified; Z93.0 Tracheostomy status; N18.9 Chronic kidney disease, unspecified; I12.9 Hypertensive chronic kidney disease with stage 1 through stage 4 chronic kidney disease, or unspecified chronic kidney disease; Z93.1 Gastrostomy status; D63.8 Anemia in other chronic diseases classified elsewhere; L98.9 Disorder of the skin and subcutaneous tissue, unspecified; Z16.12 Extended spectrum beta lactamase (ESBL) resistance; E78.5 Hyperlipidemia, unspecified; E87.6 Hypokalemia; G30.9 Alzheimer's disease, unspecified; F02.80 Dementia in other diseases classified elsewhere, unspecified severity, without behavioral disturbance, psychotic disturbance, mood disturbance, and anxiety; M19.90 Unspecified osteoarthritis, unspecified site; R13.10 Dysphagia, unspecified; Z79.4 Long term (current) use of insulin; Z79.82 Long term (current) use of aspirin
CPT/HCPCS: 31720; 36415; 71045-TC; 80048-TC; 80053-TC; 80076-TC; 81000-TC; 82272-TC; 83605-TC; 83735-TC; 83880; 84100-TC; 84484-TC; 85025-TC; 85730-TC; 86850-TC; 86921-TC; 87040-TC; 87081-TC; 87086-TC; 87186-TC; 94002-TC; 94003-TC; 94760-TC; 94762-TC; 99082-TC; A4216; A4623; A7526; C9113; G0378; J0696; J2185; J7030; J7040; J7042; J7050; P9016-BL; Q2036